=== PATIENT | male | born 2000 | race Caucasian/White ===

== ENCOUNTER 2022-09-28 01:51 | Emergency (ER) | payer MEDICARE, MEDICAID, SELFPAY ==
[2022-09-28 02:09] VITALS: BP 136/86; PULSE 105; O2SAT 99; BMI 30.1
[2022-09-28 03:01] VITALS: BP 113/58; PULSE 92; RESP 16; TEMP 37.4; O2SAT 97
--- NOTE | 2022-09-28 03:04 | PC.NURSE ---
pt reassessed reported burning with urination x 5 days. Was seen at [facility] for similar symptoms
--- NOTE | 2022-09-28 03:28 | ED_ITS ---
HPI - Psych General Chief Complaint: Psychiatric Symptoms Stated Complaint: crisis Time Seen by Provider: 09/28/22 03:24 Source: patient Mode of arrival: wheelchair Limitations: no limitations History of Present Illness HPI Narrative: Patient comes to the emergency room complaining of severe PTSD flashbacks. Patient states that there are no suicidal or homicidal thoughts. Patient extremely anxious because of the lytes, patient states that because of autism, patient cannot stand bright lights. Patient was seen at [facility] earlier today, however he was discharged because patient was being disruptive because the lights were too bright. Patient complaining of dysuria, no hematuria. Patient has history of chronic incontinence, requesting to be straight cath for urine sample Related Data Allergies Allergy/AdvReac Type Severity Reaction Status Date / Time latex [LATEX] Allergy Unknown UNKNOWN Unverified 05/13/20 16:43 shellfish derived Allergy Unknown UNKNOWN Unverified 05/13/20 16:43 [SHELLFISH DERIVED] CELIAC Allergy Unknown UNKNOWN Uncoded 05/13/20 16:43 Review of Systems Review of Systems: Constitutional : No Weight loss, No Fever, No Chills, No Night Sweats, No Fatigue, No Malaise ENT/Mouth : No Hearing loss, No Ear Pain, No Nasal Congestion, No Sinus Pain, No Hoarseness, No sore throat, No Rhinorrhea, No Swallowing Difficulty Eyes: No Eye Pain, No Swelling, No Redness, No Foreign Body, No Discharge, No Vision Changes Cardiovascular : No Chest Pain, No SOB, No Dyspnea on Exertion, No Orthopnea, No Edema, No Palpitations Respiratory : No Cough, No Sputum, No Wheezing, No Smoke Exposure, No Dyspnea Gastrointestinal : No Nausea, No Vomiting, No Diarrhea, No Constipation, No abdominal Pain, No Hematochezia, No Melena Genitourinary : Complaining of dysuria No Urinary Frequency, No Hematuria, No Urinary Incontinence, No Urgency, No Flank Pain, No Urinary Flow Changes, No Hesitancy Musculoskeletal : No joint pain, No Myalgias, No Joint Swelling Skin : No Skin Lesions, No rash Neuro : No Weakness, No Numbness, No Paresthesias, No Loss of Consciousness, No Dizziness, No Headache Psych : Complaining of anxiety, PTSD, no SI or HI Heme/Lymph: No Bruising, No Bleeding,No Lymphadenopathy Endocrine : No Polyuria, No Polydipsia, No Temperature Intolerance [facility] Past Medical History Medical History (Updated 09/28/22 @ 03:31 by Selina Yarbrough MD) Autism Chronic post-traumatic stress disorder (PTSD) Physical Exam Vital Signs: Vital Signs: Last Vital Signs Temp 99.4 F 09/28/22 03:01 Pulse 92 09/28/22 03:01 Resp 16 09/28/22 03:01 BP 113/58 L 09/28/22 03:01 Pulse Ox 97 09/28/22 03:01 O2 Del Method 09/28/22 03:01 BMI result Body Mass Index 30.1 Const: Other: Appearance: Alert. Oriented X3. Very anxious Eyes: Pupils equal, round and reactive to light. ENT: Pharynx normal. Neck: Normal inspection. Neck supple. No lymph nodes noted. No crepitus CVS: Normal heart rate and rhythm. Pulses normal. Normal S1 and S2 Respiratory: No respiratory distress. Breath sounds normal. No Wheezing. No rales Abdomen: Soft and nontender. No rigidity. No distention. Skin: Skin warm and dry. Normal skin color. Normal skin turgor. Extremities: No lower extremity edema. No Lacerations. No Rash Neuro: Cranial nerves 2-12 grossly intact Psych: Once patient was put in a dark room, patient became calm, cooperative. Before when patient was out in the hallway with bright lights, patient was extremely anxious Course Course Course Narrative: -patient requested to be straight cathed -urinalysis pending -care team consult pending -physician observation started at 03:30 -Sunday given to Dr. Camarena Discharge Plan Discharge Clinical Impression: Dysuria, Post traumatic stress disorder Patient Disposition: Still a Patient
[2022-09-28 03:49] LABS: Appearance Urine Turbid; Color Urine Yellow; Glucose Urine UA Negative (Negative); Leukocyte Esterase Urine Trace (Negative); Nitrite Urine Negative (Negative); PH 6.5 (5.0-9.0); UMIC TRIGGER UACC YES; Urine Blood Negative (Negative); Urine Ketones Negative (Negative); Urine Protein Negative (Neg-Trace)
--- NOTE | 2022-09-28 03:59 | PC.NURSE ---
pt straight cath for urine, tolerated well
[2022-09-28 04:17] LABS: Bacteria Urine None Seen (None Seen); Hyaline Casts Urine 0-2 /LPF (0-2); RBC Urine 0-2 /HPF (0-2); Squamous Epithelial Cell Urine 0-2 /HPF (0-2); WBC Urine 0-5 /HPF (0-5)
[2022-09-28] MEDS: Acetaminophen 325 MG TABLET 975 MG PO (04:20)
[2022-09-28] MEDS: clonazePAM 1 MG TABLET 2 MG PO (04:21)
[2022-09-28] MEDS: clonazePAM 1 MG TABLET PO (06:20)
--- NOTE | 2022-09-28 06:23 | PC.NURSE ---
pt reassessed, reported feeling anxious unable to focus. Dr. gomez
--- NOTE | 2022-09-28 06:38 | PC.NURSE ---
pt assessed, pt threw herself over the railing and ended on the floor, denies any complaints. Dr. gomez
[2022-09-28 07:02] LABS: Amphetamine Screen Urine Not Detected (Not Detect); Barbiturates, Urine Not Detected (Not Detect); Benzodiazepines Screen Urine Not Detected (Not Detect); Cannabinoid Screen Urine POSITIVE (Not Detect); Cocaine Screen Urine Not Detected (Not Detect); Fentanyl, urine Not Detected (Not Detect); Opiate Screen Urine Not Detected (Not Detect); Phencyclidine Screen Urine Not Detected (Not Detect)
[2022-09-28 07:20] VITALS: BP 126/80; PULSE 106; RESP 16; TEMP 36.7; O2SAT 97
--- NOTE | 2022-09-28 07:53 | PHA.MEDREC ---
Pharmacy Consult ? Medication Reconciliation Pharmacy has completed the medication reconciliation. Reviewed med rec done by nursing
--- NOTE | 2022-09-28 08:38 | PC.NURSE ---
CARE team at bedside evaluating patient.
--- NOTE | 2022-09-28 12:46 | PC.NURSE ---
assumed care of pt at 1100, pt transitioned into pod due to overstimulating in the main ED. pt approved by charge nurse to have wheelchair in behavioural pod due to limited mobility. pt changed over and belongings stored with pt getting access to activity books/colouring books/fidget toys from personal belongings. pt requiring freq redirection and reeducation about limitations with belongings in the pod and sharing single portable phone. pt requesting that staff do not give any information regarding stay to mother - registration/charge nurse/ED sec notified. pt is able to convey needs independently and has been encouraged to do so when needed. partner has been calling ED with instructions on behalf of pt - informed partner that pt has been able to communicate needs. pt informed staff that they do not have an allergy to gluten, chart updated to reflect this information. psych provider and CARE team has consulted with pt, ED provider performed med rec. pt denies SI/HI, but expresses increased confusion and is unsure as to why he is being held in the ED - psych team reoriented pt.
--- NOTE | 2022-09-28 13:26 | PC.NURSE ---
pt requesting to shower, assisted to shower chair and aiding w undressing by tech, pt showered independently.
[2022-09-28] MEDS: hydrOXYzine HCL 25 MG TABLET PO ×2 (14:51→21:39)
[2022-09-28] MEDS: Cyclobenzaprine HCl 5 MG TABLET PO ×2 (14:51→21:39)
[2022-09-28] MEDS: Dextroamphetamine/Amphetamine XR 10 MG CAP.ER.24H PO (14:54)
[2022-09-28] MEDS: Amphetamine Mixed Salts 10 MG TABLET 5 MG PO (14:55)
--- NOTE | 2022-09-28 14:58 | PC.NURSE ---
pt medicated per provider order.
--- NOTE | 2022-09-28 15:00 | PC.NURSE ---
pharmacy contacted for outstanding medication.
[2022-09-28] MEDS: Celecoxib 100 MG CAPSULE PO ×2 (15:13→21:39)
--- NOTE | 2022-09-28 15:17 | PC.NURSE ---
medicated per provider order with remaining medication, pt moved into room with television at pt request.
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
--- NOTE | 2022-09-28 16:10 | MHC.CARE ---
[facility] bed[facility] exhausted.
--- NOTE | 2022-09-28 18:38 | PC.NURSE ---
pt requesting to speak to care team, care team notified.
--- NOTE | 2022-09-28 19:10 | PC.NURSE ---
Addendum entered by Srinivas Jacques RN 09/28/22 22:18: Charge nurse made aware of 1:1 order and is agreement with plan Original Note: Per report and previous nurse note patient is high risk fall due to being wheel chair bound and limited mobility. Per report the case was discussed at the time of transfer however charge nurse decided to transfer despite those physicals issues and limitation with primary goal of maintaining ED milieu. Patient is significantly at high risk for fall. This life insurance underwriter discussed patient safety with the provider, Dr. Oropeza ordered one to one safety observation, patient is currently in room calm and quiet at this time, with wheelchair at bed side, will continue to monitor.
[2022-09-28 21:06] VITALS: BP 112/68; PULSE 98; RESP 16; TEMP 36.7; O2SAT 97
[2022-09-28] MEDS: Prazosin HCL 1 MG CAPSULE 2 MG PO (21:18)
[2022-09-28] MEDS: clonazePAM 0.5 MG TABLET PO (21:39)
--- NOTE | 2022-09-29 05:21 | PC.NURSE ---
Patient slept through the night, no distress observed/reported at this time, behavior unpredictable with extremely labile mood, difficulty controlling his emotions, medication compliant, patient reported he is has chronic bladder incontinence and is wheel chair bound, patient is being observed on 1:1 for for fall and safety, care team will soon make care plan for him, VSS, will continue to monitor.
[2022-09-29] MEDS: Dextroamphetamine/Amphetamine XR 10 MG CAP.ER.24H PO (07:41)
[2022-09-29] MEDS: Celecoxib 100 MG CAPSULE PO (07:53)
[2022-09-29] MEDS: Cyclobenzaprine HCl 5 MG TABLET PO (07:57)
--- NOTE | 2022-09-29 10:06 | MHC.CARE ---
Patient has been legally to his for five years, and is requesting Gokul, patient's spouse be referred to as his , as legally indicated.
--- NOTE | 2022-09-29 10:35 | MHC.CARE ---
Assessment faxed to [facility] for [facility]pt LOC today 09/29 [id number]
--- NOTE | 2022-09-29 10:36 | MHC.CARE ---
[facility] unable to accommodate patient today, though they have admitted him before and have many positive things to say about patient. Their unit is acutely aggressive, however if patient is not placed by Sunday, then they will reach out to see if patient still needs a bed as they would like to accept him.
--- NOTE | 2022-09-29 10:39 | PC.NURSE ---
Pt. constantly requesting phone. sliding around on floor. enc to get off floor. bkfst eaten. Limits set re: phone use. Pt having call nurse's station regarding care. Explained to that pt is capable of making his needs know. Care team in speaking with pt earlier. Requesting to shower at this time
--- NOTE | 2022-09-29 12:27 | MHC.CARE ---
sudhakar owen reviewed packet, unable to accommodate.
--- NOTE | 2022-09-29 12:31 | MHC.CARE ---
lvm 09/29 [id number] with pt's , Gokul, requesting call back to update re: bed search
[2022-09-29] MEDS: clonazePAM 0.5 MG TABLET PO (13:19)
[2022-09-29] MEDS: Amphetamine Mixed Salts 10 MG TABLET 5 MG PO (13:24)
--- NOTE | 2022-09-29 16:34 | PC.NURSE ---
Pt was informed by care team that he would be d/c. Pt became agitated and was witnessed jumping up and down. Pt deescalates himself and implores care team to talk with him more about disposition.
--- NOTE | 2022-09-29 17:04 | MHC.CARE ---
CARE commissions coordinator discusses case with Ibis Layton, [facility], Roseanna Amador, psych provider Carissa Simpson NP, and Dr. Manriquez ED provider. There is a consensus that patient does not meet criteria for IPLOC as pt is at his baseline of functioning which includes chronic emotional dysregulation with limited availability to implement distress tolerance skills. Pt's reports to t/w that pt is always like this, when referring to pt's current state of emotional distress. When t/w asks pt's why pt needs IPLOC, identifies that he is having difficulty tolerating pt's emotional dysregulation at home. Pt reports being hospitalized 32 times in the past and find that med changes and structured groups can be helpful. Carissa Simpson reports that she met with pt and offered med changes, however, pt declined med changes. CARE Team offers referral to PHP to start first thing next week, and pt declines. Pt declines referral for psychiatry at [facility] and referrals for respite LOC. CARE Team offers to make a safety plan with pt and and pt flips a mattress at t/w. CARE Team speaks with separately and recommends safety measures including locking up OTC and prescribed meds from pt and removing sharps. Before t/w can review community resources for crisis/[facility], reports they will be seeing another crisis team for a second opinion. Pt does not require a locked setting for treatment at this time and declined offers for lower LOC. Pt discharged by Dr. Manriquez. Case reviewed with Carissa Simpson NP.
== END 2022-09-29 17:13 | disposition home or self-care (01) ==
PROVIDERS: Emergency Medicine; Emergency Provider Emergency Medicine Emergency Medical Services; PCP Internal Medicine Nephrology
DX: F60.3 Borderline personality disorder (principal); R30.0 Dysuria; F43.12 Post-traumatic stress disorder, chronic; F84.0 Autistic disorder; F41.9 Anxiety disorder, unspecified; Z79.899 Other long term (current) drug therapy
CPT/HCPCS: 51701; 80307; 81001; 99285

== ENCOUNTER 2024-12-29 21:16 | Emergency (ER) | payer MEDICARE, MEDICAID, SELFPAY ==
[2024-12-29 21:22] VITALS: BP 134/81; PULSE 77; O2SAT 98
--- NOTE | 2024-12-29 21:23 | ED_ITS ---
HPI - General Adult General Chief complaint: General Medical Stated complaint: NEEDS ASSISTANCE? PER EMS Time Seen by Provider: 12/29/24 21:22 Source: patient Mode of arrival: EMS Limitations: no limitations History of Present Illness ED Provider: Dr. 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 Patient completed a 7 day course of antibiotics and the only new discharge medication was Flomax. Patient states that he was discharged from [facility] and was taken home by wheelchair ambulance. He states that the driver/sales workers left him at his home and his mother refused to let him in. An ambulance was called and the patient was then brought to [facility] for evaluation. Patient denies being suicidal or homicidal. He states that he does not feel right but has no specific complaints Related Data Home Medications ?Medication ?Instructions ?Recorded ?Confirmed hydroxyzine pamoate 25 mg capsule 1 cap PO Q6H PRN anxiety 09/28/22 12/30/24 aspirin 81 mg tablet,delayed 81 mg PO DAILY 12/30/24 12/30/24 release baclofen 5 mg tablet 5 mg PO TID Muscle Spasm 12/30/24 12/30/24 cefpodoxime 100 mg tablet 100 mg PO Q12H 12/30/24 12/30/24 cetirizine 10 mg tablet 10 mg PO DAILY 12/30/24 12/30/24 clonazepam 1 mg tablet 1 mg PO BEDTIME 12/30/24 12/30/24 dextroamphetamine-amphetamine 10 1 tab PO BID@0800,1200 12/30/24 12/30/24 mg tablet famotidine 20 mg tablet 20 mg PO DAILY 12/30/24 12/30/24 melatonin 3 mg tablet 3 mg PO BEDTIME PRN insomnia 12/30/24 12/30/24 metoprolol tartrate 25 mg tablet 25 mg PO BID 12/30/24 12/30/24 morphine 15 mg tablet,extended 45 mg PO BEDTIME 12/30/24 12/30/24 release morphine 15 mg tablet,extended 15 mg PO DAILY 12/30/24 12/30/24 release (MS Contin) naloxone 4 mg/actuation nasal spray 1 spray intranasal NEEDED 12/30/24 12/30/24 ondansetron 4 mg disintegrating 4 mg PO Q8H PRN nausea/vomiting 12/30/24 12/30/24 tablet polyethylene glycol 3350 17 gram 17 g PO DAILY PRN Constipation 12/30/24 12/30/24 oral powder packet (Miralax) sennosides 8.6 mg tablet (senna) 17.2 mg PO DAILY 12/30/24 12/30/24 tamsulosin 0.4 mg capsule 0.4 mg PO DAILY 12/30/24 12/30/24 testosterone cypionate 200 mg/mL 80 mg IM TU@0900 12/30/24 12/30/24 intramuscular oil Allergies Allergy/AdvReac Type Severity Reaction Status Date / Time aripiprazole [From Abilify] Allergy Hallucinati Verified 12/29/24 21:28 ons dog dander [dogs] Allergy Unknown Verified 12/29/24 21:28 mite-Dermatophagoides Allergy Unknown Verified 12/29/24 21:28 farinae, carmen [dust mite - [place]] chlorpromazine AdvReac Hallucinati Verified 12/29/24 21:28 [From Thorazine] ons Review of Systems 2 Review of Systems: Yes all other systems are reviewed and are negative PMFSH Past Medical History Medical History (Updated 01/01/25 @ 14:14 by Flavio Wiseman MD) Tracheal stenosis Tracheostomy dependence Autism Chronic post-traumatic stress disorder (PTSD) Social History Social History Alcohol intake: never Patient Tobacco Use Status: Never used Tobacco Smoked in Last 30 Days: No Second Hand Smoke Exposure: No Use of substances other than those prescribed or required for medical reasons: No Have you been hit, kicked, punched, or otherwise hurt by someone within the past year? If so, by whom?: No Are you DNR?: No Advance Directives: No Advance Directives Information Provided: No Advance Directives on File: No Poor oral hygiene: No Physical Exam ED Vital Signs: Vital Signs - 24 hr 01/02/25 11:26 01/02/25 12:19 01/02/25 12:29 Temperature 98.3 F 97.2 F 97 F Pulse Rate 67 64 69 Respiratory Rate 16 17 16 Blood Pressure 109/59 L 87/46 L 94/51 L Pulse Oximetry 96 94 96 Oxygen Delivery Method Room Air Room Air Room Air 01/02/25 21:42 01/03/25 09:03 Temperature 98.7 F 98.1 F Pulse Rate 88 69 Respiratory Rate 18 16 Blood Pressure 107/62 132/52 L Pulse Oximetry 96 99 Oxygen Delivery Method Room Air Room Air BMI result Body Mass Index 35.1 Vital signs were normal Exam: General: Awake, appears anxious, has a chronic tracheostomy and can speak. Head: Normocephalic, atraumatic EENT: PERRL, Lids normal, sclera normal, conjunctiva normal, nose normal , ears normal, throat without erythema or exudates Neck: Supple, no adenopathy, tracheostomy Lung: breath sounds symmetric, no wheezing, rales or rhonchi Chest: symmetric movement, nontender Heart: regular rate and rhythm, normal S1, S2 no murmurs or rubs Abdomen: soft, non-tender, nondistended, normal bowel sounds Back: no vertebral tenderness, no CVAT Extremities: no deformities, moves all extremities symmetrically Neuro: Awake, alert, oriented, cranial nerves intact, moves all extremities symmetrically Psych: Pleasant, anxious, cooperative Course Course Course Narrative: Time: 08:27 Date: 12/31/24 Provider: ELSY Ontiveros Patient in physician observation for case management needs. No acute events reported overnight.? No current issues or complaints. VS stable. Patient is pending placement at [facility]/ eval. Will continue to monitor. L Time: 09:30 Date: 01/01/25 Provider: Dominga Park PA-C Patient continues to be in observation. Has tentative placement in a SNF in [place], [place] however, they have requested the patient have his trach changed before he is sent. I have reached out to our pulmonology team and await a response. Patient's urine culture grew E. Faecalis >100,000 cfu/ml susceptible to Macrobid. Patient's prescription switched to Macrobid. Time: 11:15 Date: 01/01/25 Provider: ELSY Langley-Jocelyne Patient seen by Dr. Wiseman for trach change however, the patient did not tolerate it well. Patient scheduled for replacement on 01/02/2025 at 1230pm. Patient to be NPO after midnight. Reevaluation(s) Reevaluation #1: 01/02/2025 Provider; ELSY Ng Patient in position observation pending OR today for trach replacement. He has been NPO since midnight plan surgery at 12:30 pm today, we will continue to monitor. Time: 09:00 Reevaluation #2: Received a call from [employer], the patient is complaining that he is unable to move his right arm, and that it is tingly. Patient states he has had issues like this in the past. I will go and assess the patient, we do not have a great deal of documentation on him from prior visits. With distraction, the patient moves the right upper extremity. He has tone, it is not flaccid. Nursing thinks he is becoming anxious over the prospect of being placed in another skilled nursing, this may be an attempt to try and stay in the emergency room longer. Time: 02:54 Reevaluation #3: Time: 08:30 Date: 01/03/25 Provider: ELSY Salinas Patient in physician observation for case management needs. No current issues or complaints. VS stable. Awaiting case management disposition and placement Time: 08:52 Date: 01/03/25 Provider: ELSY Salinas Physician observation ended at 8:52AM. Patient will be discharged to [facility] in [place] at 1:30PM this afternoon. Medications Administered Generic Name Dose Route Start Last Admin Trade Name Freq PRN Reason Stop Dose Admin Acetaminophen 650 mg 01/02/25 07:40 01/02/25 07:56 Acetaminophen 325 Mg Tablet PO 650 mg Q6H PRN Administration Pain, Mild (Pain Scale 1-3) Amphetamine/Dextroamphetamine 10 mg 12/31/24 08:00 01/03/25 09:05 Amphetamine Mixed Salts 10 Mg Tablet PO 10 mg BID@0800,1200 COLTEN Administration Aspirin 81 mg 12/30/24 12:45 01/03/25 09:05 Aspirin Enteric Coated 81 Mg Tablet.Dr PO 81 mg DAILY COLTEN Administration Baclofen 5 mg 12/30/24 15:00 01/03/25 09:05 Baclofen 10 Mg Tablet PO 5 mg TID COLTEN Administration Clonazepam 1 mg 12/30/24 21:00 01/02/25 22:00 Clonazepam 1 Mg Tablet PO 1 mg BEDTIME COLTEN Administration Famotidine 20 mg 12/30/24 12:45 01/03/25 09:08 Famotidine 20 Mg Tablet PO 20 mg DAILY COLTEN Administration Hydroxyzine HCl 25 mg 12/30/24 12:35 01/03/25 00:29 Hydroxyzine Hcl 25 Mg Tablet PO 25 mg Q6H PRN Administration anxiety Loratadine 10 mg 12/30/24 12:45 01/03/25 09:11 Loratadine 10 Mg Tablet PO 10 mg DAILY COLTEN Administration Metoprolol Tartrate 25 mg 12/30/24 12:45 01/03/25 09:09 Metoprolol Tartrate 25 Mg Tablet PO 25 mg BID COLTEN Administration Protocol Morphine Sulfate 45 mg 12/30/24 21:00 01/02/25 22:00 Morphine Sulfate Er 15 Mg Tablet.Er PO 45 mg BEDTIME COLTEN Administration Morphine Sulfate 15 mg 12/30/24 12:45 01/03/25 09:14 Morphine Sulfate Er 15 Mg Tablet.Er PO 15 mg DAILY COLTEN Administration Nitrofurantoin Macrocrystals 100 mg 01/01/25 09:30 01/03/25 09:09 Nitrofurantoin Monohyd/M-Cryst 100 Mg Capsule PO 01/08/25 09:29 100 mg BID COLTEN Administration Oxycodone HCl 10 mg 01/01/25 17:17 01/03/25 09:34 Oxycodone Hcl Immed Release 5 Mg Tablet PO 10 mg Q6H PRN Administration Pain, Moderate(Pain Scale 4-6) Senna 17.2 mg 12/30/24 12:45 01/03/25 09:06 Sennosides 8.6 Mg Tablet PO 17.2 mg DAILY COLTEN Administration Tamsulosin HCl 0.4 mg 12/30/24 12:45 01/03/25 09:09 Tamsulosin Hcl 0.4 Mg Capsule PO 0.4 mg DAILY COLTEN Administration Discontinued Medications Generic Name Dose Route Start Last Admin Trade Name Codi PRN Reason Stop Dose Admin Acetaminophen 975 mg 12/31/24 14:59 12/31/24 15:03 Acetaminophen 325 Mg Tablet PO 12/31/24 15:00 975 mg ONCE ONE Administration Cefuroxime Axetil 500 mg 12/30/24 08:00 12/30/24 08:52 Cefuroxime Axetil 500 Mg Tablet PO 01/04/25 07:59 Not Given Q12H [facility] Cefuroxime Axetil 250 mg 12/30/24 08:04 01/01/25 09:44 Cefuroxime Axetil 250 Mg Tablet PO 01/04/25 07:59 Not Given Q12H [facility] Clonazepam 1 mg 12/30/24 02:03 12/30/24 02:19 Clonazepam 1 Mg Tablet PO 12/30/24 02:04 1 mg ONCE ONE Administration Clonazepam 1 mg 12/31/24 15:10 12/31/24 15:16 Clonazepam 1 Mg Tablet PO 12/31/24 15:11 1 mg ONCE ONE Administration Hydroxyzine HCl 25 mg 12/30/24 02:03 12/30/24 02:19 Hydroxyzine Hcl 25 Mg Tablet PO 12/30/24 02:04 25 mg ONCE ONE Administration Morphine Sulfate 15 mg 12/30/24 02:09 12/30/24 02:18 Morphine Sulfate Er 15 Mg Tablet.Er PO 12/30/24 02:10 15 mg ONCE ONE Administration Oxycodone HCl 5 mg 12/31/24 17:06 12/31/24 17:14 Oxycodone Hcl Immed Release 5 Mg Tablet PO 12/31/24 17:07 5 mg ONCE ONE Administration Medical Decision Making Medical Decision Making MDM Narrative: 24-year-old transgender male with hormone transitions since 2017 status post mastectomy 2018, WPW status post ablation, migraines, asthma with medication overdose 12/2022 with subglottic stenosis and tracheostomy, bipolar disorder, MDD, AST, PTSD, ADHD borderline personality, 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 Patient completed a 7 day course of antibiotics and the only new discharge medication was Flomax. Patient states that he was discharged from [facility] and was taken home by wheelchair ambulance. He states that the driver/sales workers left him at his home and his mother refused to let him in. An ambulance was called and the patient was then brought to [facility] for evaluation. Patient denies being suicidal or homicidal. He states that he does not feel right but has no specific complaints. Vital signs were normal. Physical examination was unremarkable. Differential diagnosis: ?Includes but is not limited to anxiety, anemia, electrolyte abnormalities, urinary tract infection, possible homelessness Course: 22:47 Start physician observation The patient denied being suicidal or homicidal therefore he does not need a psychiatric evaluation at this time. He states that he is not feeling well, he appears anxious, physical exam was unremarkable. Once the patient's medications were reconciled, I will order his home medications. I did order CBC, CMP, ethanol level, drug screen urine, urinalysis. Patient states that last time he had CPR , he experienced a lot of pain he is not certain if he wants it again but he does not want to make a decision at this time. Therefore, the patient will be a full code. Patient will be placed in physician observation until he can be evaluated by case management in the morning to determine his home circumstance/living situation. 08:00 Physician observation continued Patient was given his outpatient medications of MS Contin 15 mg, clonazepam 1 mg and hydroxyzine 25 mg orally. My interpretation patient's laboratory evaluation is as follows: CBC was normal. CMP was normal. Urinalysis obtained from indwelling Dacosta catheter revealed 3+ leukocyte esterase, greater than 50 WBCs, 0 2 squamous cells, 3+ bacteria. Patient was treated with 7 days of antibiotics and [facility] with the only new medication at the time of discharge was Flomax. Given his positive UA/microscopic today, I did order cefuroxime 250 mg orally and cefuroxime 250 mg q.12 hours while the patient is here in the emergency department. The patient's medications will need to be reconciled. At the end of my shift, patient is waiting for case management evaluation therefore patient's care was turned over to my colleague, Dr. Foy Admission/Observation Consideration of admission/observation: Escalation of care including admission/observation considered Lab Data 12/30/24 00:01 12/30/24 00:01 Labs: Lab Results 12/29/24 12/30/24 12/30/24 Range/Units 23:50 00:01 11:40 WBC 7.4 (4.8-10.8) X10*3/uL RBC 4.97 (4.60-5.80) X10*6/uL Hgb 15.1 (14.0-18.0) g/dl Hct 44.1 (42.0-52.0) % MCV 88.7 (80.0-98.0) fL MCH 30.4 (27.0-33.0) pg MCHC 34.2 (31.0-36.0) g/dl RDW 13.1 (11.0-16.0) % Plt Count 215 (160-400) X10*3/uL MPV 9.9 (9.4-12.4) fL Immature Gran % (Auto) 0.1 (0.0-0.4) % Neut % (Auto) 52.1 (45-73) % Lymph % (Auto) 31.8 (20-40) % [place] % (Auto) 11.9 H (2-11) % Eos % (Auto) 3.4 (0-4) % Baso % (Auto) 0.7 (0-2) % Lymph # (Auto) 2.4 (1.2-4.9) X10*3/uL [place] # (Auto) 0.9 (0.1-1.2) X10*3/uL Eos # (Auto) 0.3 (0.0-0.4) X10*3/uL Baso # (Auto) 0.1 (0.0-0.2) X10*3/uL Abs Immat Gran (auto) 0.01 (0.00-0.03) X10*3/uL Absolute Neuts (auto) 3.9 (2.0-8.3) x10*3/uL Absolute Nucleated RBC 0.000 (0.0-0.012) X10*3/uL Nucleated RBC % (auto) 0.0 (0.0-0.2) /100WBC Sodium 142 (135-145) mmol/L Potassium 3.9 (3.3-5.1) mmol/L Chloride 109 H (96-108) mmol/L Carbon Dioxide 23 (22-29) mmol/L Anion Gap 14 (12-20) BUN 18 H (9-16) mg/dL Creatinine 0.81 (0.5-1.4) mg/dL Estim Creat Clear Calc 138.3 Estimated GFR > 60 Random Glucose 84 (60-115) mg/dL Calcium 9.0 (8.4-10.2) mg/dL Total Bilirubin 0.7 (0.0-1.0) mg/dL AST 33 (5-37) U/L ALT 46 H (0-40) U/L Alkaline Phosphatase 52 (39-117) U/L Total Protein 6.8 (6.5-8.0) g/dL Albumin 3.9 (3.5-5.0) g/dL Urine Color Yellow Urine Appearance Clear Urine pH 6.5 (5.0-9.0) Ur Specific [place] 1.015 (1.005-1.025) Urine Protein 30 (1+) H (Neg-Trace) mg/dL Urine Glucose (UA) Negative (Negative) mg/dL Urine Ketones 15 (Negative) mg/dL Urine Blood Negative (Negative) Urine Nitrite Negative (Negative) Ur Leukocyte Esterase Large (3+) H (Negative) Urine RBC 0-2 (0-2) /HPF Urine WBC >50 H (0-5) /HPF Ur Squamous Epith Cells 0-2 (0-2) /HPF Urine Bacteria 3+ (None Seen) Hyaline Casts 0-2 (0-2) /LPF Urine Opiates Screen POSITIVE H (Not Detect) Ur Buprenorphine Scrn Not Detected (Not Detect) ng/mL Ur Oxycodone Screen Positive H (Not Detect) ng/mL Urine Methadone Screen Not Detected (Not Detect) ng/mL Urine Fentanyl Screen Not Detected (Not Detect) Ur Barbiturates Screen Not Detected (Not Detect) Ur Phencyclidine Scrn Not Detected (Not Detect) Ur Amphetamines Screen POSITIVE H (Not Detect) U Benzodiazepines Scrn Not Detected (Not Detect) Urine Cocaine Screen Not Detected (Not Detect) U Marijuana (THC) Screen POSITIVE H (Not Detect) Ethyl Alcohol < 10 mg/dL Influenza Type A (PCR) NEGATIVE (Negative) Influenza Type B (PCR) NEGATIVE (Negative) RSV RNA Qual (PCR) NEGATIVE (Negative) SARS-CoV-2 RNA (RT-PCR) NEGATIVE (Negative) External Record Review External record reviewed: Outside ED record ( record from [facility] recent admission) Chronic Conditions Patient?s care impacted by: Other ( asthma, bipolar disorder) Social Determinants Patient?s care significantly limited by Social Determinants of Health including: Inadequate housing and Other Social Determinant of Health Discharge Plan Discharge Clinical Impression: Anxiety, Urinary tract infection, Inadequate housing Patient Disposition: Xfer LTC Transfer Details: [facility]
[2024-12-29 21:25] VITALS: BP 134/84; PULSE 81; RESP 20; TEMP 37.4; O2SAT 97; BMI 35.1
--- OUTSIDE RECORDS SUMMARY | 2024-12-29 21:58 | XMS_ITS | Encounter Summary ---
Author Organization [facility] Address [address] [place] [address] Care Team Providers Care Cisco Engineer Name Role Phone RoxisarahabimbolaEda Primary Care Provider [phone] Encounter Details Date Type Department Care Team (Late st Contact Info) Description 09/26/2022 myChart Message [facility] [address] [place] [address] [phone] Angelita Seth MD [address] [place] [address] [phone] question related to products used on my scalp Social History Tobacco Use Types Packs/Day Years Used Date Smoking Tobacco: Every Day Cigarettes 1 4.3 Started: 2020 Smokeless Tobacco: Never Alcohol Use Standard Drinks/Week Comments Never 0 (1 standard drink = 0.6 oz pur e alcohol) Comments Unknown Sex and Gender Information Value Date Recorded Sex Assigned at Female 06/12/2022 1:18 PM EDT Legal Sex Male 10:42 AM EDT Gender Identity Transgender Male 12/28/2023 4:37 PM EDT Sexual Orientation Lesbian or Park 06/12/2022 1: 18 PM EDT documented as of this encounter Plan of Treatment Not on file documented as of this encounter Visit Diagnoses Not on filedocumented in this encounter Care Teams Cisco Engineer Relationship Specialty Start Date End Date KwanEda [address] [place] [id number] PCP - General 05/24/22 documented as of this encounter
--- OUTSIDE RECORDS SUMMARY | 2024-12-29 21:58 | XMS_ITS | Encounter Summary ---
Author Organization [facility] Address [address] [place] [address] Care Team Providers Care Chair Mechanic Name Role Phone Eda Bowens Primary Care Provider [phone] Encounter Details Date Type Department Care Team (Late st Contact Info) Description 09/05/2022 Telephone [facility] [address] [place], [place] [phone] Octavio Esparza MD [address] [place] [phone] Social History Tobacco Use Types Packs/Day Years [...] PM EDT documented as of this encounter Miscellaneous Notes * Telephone Encounter - Octavio Esparza MD - 09/06/2022 10:50 AM EST COVID-19 order signed. Thank you. documented in this encounter Plan of Treatment Not on file documented as of this encounter Results * Due to [place] state law, this organization might not be sharing negative HIV tests. * COVID-19 PCR, Pre-Procedure (Asymptomatic), LABOR AND DELIVERY REGISTERED NURSE/OP/Saliva (09/15/2022 11:31 AM EST) SARS CoV 2 RNA, RT PCR Not Detected Not Detected SARAH HER QUANT STUDIO 09/15/2022 9:20 PM EST [facility] Comment:A Not Detected (Nega tive) test result is indicative of the absence of SARS-CoV-2 RNA at the level of LoD (Limit of Detection). A negative result does not rule out the possibility of COVID-19 and should not be used as the sole basis for treatment or patient management decisions. If COVID-19 is still suspected, based on exposure history together with other clinical findings, re-testing should be considered. Swab (Naso- and/or Oropharyngeal) Non-Blood Collection / Unknown 09/15/2022 11:31 AM EST 09/15/2022 12:04 PM EST Narrative [facility] - 09/15/2022 9:20 PM EST These tests were developed, validated, and their performance characteristics determined by the Molecular Virology Laboratory at [facility] under CLIA [id number]. They have not been cleared or approved by the U.S. Food and Drug Administration (FDA). FDA Policy for Diagnostic Tests for Coronavirus Disease-2019 during the Public Health Emergency issued November 10, 2019, is followed. Octavio Esparza MD LAB BODY FLUIDS AND STOOLS [facility]ILTON TRAMMELL Final Result [facility] [address] [place] [address], documented in this encounter Visit Diagnoses Diagnosis Convulsions, unspecified convulsion type (HCC)- Primary documented in this encounter Care Teams Chair Mechanic Relationship Specialty Start Date End Date Eda Bowens [address] [place] [id number] PCP - General 05/24/22 documented as of this encounter
--- OUTSIDE RECORDS SUMMARY | 2024-12-29 21:58 | XMS_ITS | Clinical Summary ---
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 dextroamphetamin e-amphetamine (ADDERALL) 5 mg tablet Take 10 mg by mouth 2 times a day. 06/21/2022 Active clonazePAM (KlonoPIN) 0.5 mg tablet Take 0.5 mg by mouth 2 times a day as needed for anxiety. 08/05/2022 Active testosterone cypionate (DEPO-TESTOSTERO NE) 200 mg/mL injection SMARTSI. 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 12/14/2023 Severe episode of recurrent major depressive disorder, without psychotic features 12/14/2023 Autism 09/25/2022 PTSD (post-traumatic stress disorder) 09/24/2022 Assessment & Plan (09/24/2022 8:08 AM EST): -continue home Prozosin 2mg at bedtime Generalized anxiety disorder 09/24/2022 Assessment & Plan (09/24/2022 8:09 AM EST): -continue home Duloxetine 40mg at bedtime, Atarax 50mg at bedtime -Clonazepam 0.5mg daily PRN ADHD (attention deficit hyperactivity disorder) 09/24/2022 Assessment & Plan (09/24/2022 8:09 AM EST): -continue home Adderall XR 10mg daily, Adderall 5mg daily Seizure-like activity 09/18/2022 Assessment & Plan (09/24/2022 9:43 AM EST): Patient presented for planned EMU admission for characterization of events. Patient has two main semiologies, with both blank starring episodes (appears zoned out, unresponsive for 2-3 minutes occurring multiple times daily) as well as convulsive type (with bruxism, whole body tremor/twitch, urinary incontinence, tongue bite, falls typically lasting 1-2 minutes occurring around once per week). Prior ambulatory EEG demosntrated several absence type events without EEG correlate however patient's second semiology (convulsive activity) was not captured. No prior imaging available. Throughout admission patient has had multiple further episodes of blank starring/unresponsiveness again without EEG correlate however has not had convulsive episodes. Unclear if convulsive episodes represent ictal phenomenon however absence/starring episodes appear consistent with PNES. Will plan to continue monitoring to attempt to capture convulsive episode; likely discharge on 09/25. -monitor on CEEG -photic stimulation, hyperventilation daily -discontinue sleep deprivation. -seizure precautions -given low suspicion for epileptic events; hold benzodiazepine unless event lasts >5 minutes Convulsions 06/27/2022 Family History Medical History Relation Name Comments Autism Brother Brothers all bass ve autism. Autism Father Neurofibromatosis Father Other Father Substance abuse , heroin overdose at age 36 yrs. Retinitis pigmentosa Maternal Grandfather Opioid abuse, of an overdose. Phill Parkinson White syndrome Maternal Grandmother in her 60's from Phill-Parkinson's Synrome. Other Mother Reflex Sympathe tic Dystrophy. Uterine cancer Mother Relation Name Status Comments Brother Alive Father Maternal Grandfather Maternal Grandmother Mother Alive Social History Tobacco Use Types Packs/Day Years Used Date Smoking Tobacco: Every Day Cigarettes 1 4.3 Started: 2020 Smokeless Tobacco: Never Tobacco Cessation:Ready to Q uit: Not Asked; Counseling Given: Not Answered Alcohol Use Standard Drinks/Week Comments Never 0 (1 standard drink = 0.6 oz pur e alcohol) Comments Unknown Sex and Gender Information Value Date Recorded Sex Assigned at Female 06/12/2022 1:18 PM EDT Legal Sex Male 10:42 AM EDT Gender Identity Transgender Male 12/28/2023 4:37 PM EDT Sexual Orientation Lesbian or Park 06/12/2022 1: 18 PM EDT Last Filed Vital Signs Vital Sign Reading Time Taken Comments Blood Pressure 150/96 09/25/2022 1:35 PM EST Pulse 119 09/25/2022 1:35 PM EST Temperature 36.7 ??C (98 ??F) 09/25/2022 12:15 PM EST Respiratory Rate 20 09/25/2022 1:35 PM EST Oxygen Saturation 94% 09/25/2022 1:35 PM EST Inhaled Oxygen Concentration - - Weight 83.9 kg (185 lb) 09/18/2022 9:00 PM EST Height 154.9 cm (5' 1 ) 09/18/2022 9:00 PM EST Body Mass Index 34.96 09/18/2022 9:00 PM EST Plan of Treatment Health Maintenance Due Date Last Done Comments HIV Screening 1999 Hepatitis C Screening 1999 Medicare AWV 02/23/2000 Varicella Vaccines (1 of 2 - 13+ 2-dose series) 02/23/2012 HPV Vaccines (1 - 3-dose series) 2014 Hepatitis B Vaccines (1 of 3 - 19+ 3-dose series) 2018 Pneumococcal Vaccine: Pediat stefany (0-5 Years) and At-Risk Patients (6-50 Years) (1 of 2 - PCV) 2018 DTaP,Tdap,and Td Vaccines (1 - Tdap) 2021 COVID-19 Vaccine (3 - season) 2024, 12/19/2020 Alcohol/Substance Use Screening 08/27/2024 Depression Screening and Follow-Up 08/27/2024 Social Drivers of Health Annual Screening 08/27/2024 Influenza Vaccine (Season Ended) 2025 06/29/20 17, 06/13/2017 RSV Vaccine (60+ years old a nd patients) (1 - 1-dose 75+ series) 2074 Abdominal Aortic Aneurysm (AAA) Screening Completed 08/26/2021, 01/11/[address] [place] [address] MEDICARE Advance Directives Documents on File Type Date Recorded 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
--- OUTSIDE RECORDS SUMMARY | 2024-12-29 21:58 | XMS_ITS | Data Portability ---
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 Little in May, new to [facility], who presents for a COVID test. Patient had a telehealth visit With his primary care yesterday who prescribed Tylenol, Motrin, and Tessalon Perles and recommended [facility] evaluation for COVID test. 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 The patient states that 2 days ago he began to feel feverish and then developed sore throat, headache, fatigue, muscle aches, loss of taste and smell, stomach aches, and diarrhea. He states the [id number] medications are helping somewhat. No chest pain, sob, palpitations, syncope, weakness. Exam: afebrile, RRR, normotensive, normal resps, O2 sat 99% on RA, non-toxic, well-appearing. GENERAL: well developed, well nourished, appears stated age, sitting comfortably in no acute distress. HEENT: normocephalic, atraumatic, sinuses mildly TTP, PERRL, EOMI, sclera anicteric, no conjunctival injection, external auditory canal clear, TMs pearly white with cone of light, nares patent, septum midline, turbinates erythematous, non-edematous, posterior pharynx erythematous without lesions, or exudate. NECK: trachea midline, no masses, cervical lymphadenopathy,. RESP: normal I:E, breathing non-labored, clear to auscultation bilaterally, no wheezes, rhonchi, or rales. CARDIO: RRR, normal S1, S2, no murmurs, rubs, or gallops, radial pulse 2+. MUSK: normal strength, ROM, muscle tone, no atrophy. EXTREMITIES: warm and well perfused, no swelling or rashes. NEURO: awake, alert, oriented x3, no focal neuro deficits, moving all extremities spontaneously. SKIN: intact, good turgor, no cyanosis, pallor, ecchymosis, rash, lesions, abrasions, or lacerations. PSYCH: pleasant, appropriate mood and affect. DDx considered, but not limited to: COVID - most likely given sxs, duration, and exposure other URI - possible acute bacterial rhinosinusitis - unlikely, no significant sinus tenderness, nasal discharge, turbinates non-edematous flu - less likely, rapid flu neg strep - less likely, no tonsillar exudate or cervical lymphadenopathy, +cough post procedural complications - considered since pt has not had f/u but less likely since procedure was in May, no chest pain, palpitations, syncope Work up/Results: rapid flu and strep neg, throat culture and COVID test pending. Plan/Discussion: [facility] came to evaluate your fever, sore throat, headache, fatigue, muscle aches, loss of taste and smell, stomach aches, and diarrhea. Your rapid flu and strep test was negative. You likely have COVID-19 with recent exposure and current symptoms. Your COVID test and throat culture should result in 3-5 days, we will call you with the results. Continue to quarantine for at least 14 days, you must be without fever or symptoms for at least 48 hours prior to breaking quarantine. Continue care per your primary care. Hydrate well. [facility] for new or worsening symptoms. If you develop severe shortness of breath or weakness call 911 or go to the ER. [facility]. We cannot always find the exact cause of your symptoms during your initial visit. Please follow up with your primary care provider or specialist to be rechecked or seek medical attention if your symptoms do not go away or get worse. If you develop any new or worsening symptoms and need after hours care, please go to nearest ER and/or call 911. If you have additional concerns or develop a change in your condition between 8am-10pm, please call [facility] at [phone] to help navigate your care. Proper Personal Protective Equipment (PPE), including gloves, eye protection, N95 mask, gown, and shoe covers were donned and doffed appropriately and all equipment cleaned using approved technique with germicidal disposable wipes prior to and after care of this patient according to [facility]'s infection prevention protocols. In order to obtain further information and compare any laboratory results/values, I have accessed patient records on the [employer]. This information was pertinent in my medical decision making today. Time On Scene with Patient: 00:30:27 link Not available 08/07/2020 18:21:01 08/11/2020 08/11/2020 Overview/History : 20yo M pmhx bipolar WPW is seen today for 8 days of body aches, cough, chest pain nausea and headaches. Patient was seen 08/07 and tested negative for COVID. Patient reports feeling worse. Constant cp, cough, nausea and headache. No neck stiffness. Patient's is having similar symptoms. Exam: VSS patient non toxic appearing but appears uncomfortable Heart and lung soundc clear no nuchal rigidity pharynx without redness, swelling or exudates DDx considered, but not limited to: covid influenza viral gastroenteritis inra abdominal pathology doubt as no fever and abdomen soft and non tender maningitis-doubt as patient afebrile without neck stiffness pneumonia-doubt as patient is afebrile and lungs are CTA pericarditis-doubt as no signs on EKG Work up/Results: rapid strep neg rapid influenza neg COVID test pennding EKG non ischemic without signs of myocarditis Assessment and plan Patient is hemodynamically stable non toxic appearing seen today for flu like symptoms. no signs of pna. NO signs of meningitis or intra abdominal pathology. Patient very stressed. Tested again for COVId. Again educated on symptomatic care and drinking plenty of fluids. Precautions again given that is he develops high fevers, abdominal pain, worsened cough or sob. He verbalized understanding and was agreeable with overall plan. PAtient's was also evaluated today for similar symptoms Proper Personal Protective Equipment (PPE), including gloves, eye protection, N95 mask, gown, were donned and doffed appropriately and all equipment cleaned using approved technique with germicidal disposable wipes prior to and after care of this patient according to [facility]'s infection prevention protocols. In order to obtain further information and compare any laboratory results/values, I have accessed old patient records. This information was pertinent in my medical decision making today. Time On Scene with Patient: 00:36:38 [email or web address] Not available 08/11/2020 20:10:36 08/15/2020 08/15/2020 Overview/History : 20-year-old male with past medical history significant for asthma, depression, and WPW status post recent cardiac ablation at [facility], known to [facility], who presents with complaints of worsening chest tightness and shortness of breath with exertion. The patient states that trying to get air in is difficult. He has been feeling very dazed and states that life does not feel real period also admits to intermittent fevers improved with Tylenol and ibuprofen. Also complains of muscle aches, chills, stomach pain, diarrhea, and sore throat. He has been using his nebulizer which helps his cough and fever somewhat. Admits to nausea without vomiting. States that food and drink go right through him. He has lost 10 pounds over the last 10 days. He states that he bought a cat in 1 day before the onset of the symptoms. He has several well healing scratches. No rash. He admits to both pleuritic and exertional chest tightness with associated shortness of breath and feeling like he is going to pass out. He has been lost to followup with cardiology due to the COVID pandemic. His is also symptomatic. They report positive exposure to his grandmother and he has had 2 negative COVID tests since. Exam: low grade fever, RRR, normotensive, normal resps, O2 sat 98% on RA, ill appearing. GENERAL: well developed, well nourished, appears stated age, ill appearing, sitting comfortably in no acute distress. HEENT: normocephalic, atraumatic, sinuses nontender, PERRLA, EOMI, sclera anicteric, no conjunctival injection, external auditory canal clear, TMs pearly white with cone of light, nares patent, septum midline, right turbinates non-edematous and erythematous , posterior pharynx erythematous without lesions, tacky mucus membranes NECK: trachea midline, no masses, or cervical lymphadenopathy. RESP: normal I:E, decreased breath sounds in the RUL, no wheezes, rhonchi, or rales. CARDIO: RRR, normal S1, S2, no murmurs, rubs, or gallops, JVD absent, radial pulses 2+ bilaterally. ABD: soft, non-tender, non-distended, normoactive BS x4, no masses or HSM, no rebound, guarding, or rigidity, negative murphys sign. MUSK: normal strength, ROM, muscle tone, no atrophy. EXTREMITIES: warm, well-perfused, no swelling, cyanosis or rashes. NEURO: awake, alert, oriented x3, no focal neuro deficits, moving all extremities spontaneously. DDx considered, but not limited to: COVID - negative x2 URI - no sinus tenderness or purulent nasal discharge strep pharyngitis - neg rapid strep and neg throat cx PNA - possible, decreased breath sounds RUL pericardial effusion - possible, but no muffled heart sounds, JVD, or hypotension infective marvin/endo/myocardi tis - possible s/p recent cardiac ablation cat scratch disease - unlikely, had cat 1 day prior to sx onset mono - unlikely, pt had mono age 11 acute rheumatic fever - less likely, no rash, nodule, joint pain, chorea Work up/Results: chem 8 unremarkable; recent throat cx, rapid flu, rapid strep, and COVID test x2 all negative. Recent ECG showing NSR without acute ischemic changes. Patient escalated to ED for further work up and evaluation. Plan/Discussion: Patient escalated to ED for further w/u and evaluation of persistent fevers, chest tightness, and sob, s/p recent cardiac ablation. Patient understands and agrees with this plan. 911 called, report given to EMS on scene. In order to obtain further information and compare any laboratory results/values, I have accessed old patient records. This information was pertinent in my medical decision making today. link Not available 08/15/2020 16:32:45 10/04/2020 10/04/2020 Time On Scene with Patient: 00:19:42 [email or web address] Not available 10/04/2020 12:47:49 Plan of Treatment Reminders Order Date Submit Date Provider Last Modified By Organization Details Last Modified Time Details Appointments None recorded. Lab SARS CoV 2 RNA (COVID-19) , QL, chip separator-PCR, respirator y specimen 2020 021 SEUN [facility] (Centralized Electronic Ordering - All Locations), Patient Can Go To The Location Of Their Choice, [id number] 1 07:25:57 [facility] + ionized [facility], [facility], [address], [place], [address], 0 15:52:05 rapid flu (A+B) 2019 020 [email or web address] [facility], [address] [facility], [place], [address], 0 18:30:08 SARS CoV 2 RNA (COVID-19) , QL, chip separator-PCR, respirator y specimen 2019 020 [email or web address] [facility] (Centralized Electronic Ordering - All Locations), Patient Can Go To The Location Of Their Choice, [id number] 0 14:19:22 SARS CoV 2 RNA (COVID-19) , QL, chip separator-PCR, respirator y specimen 2019 020 [email or web address] [facility] (Centralized Electronic Ordering - All Locations), Patient Can Go To The Location Of Their Choice, [id number] 0 19:24:10 rapid strep group A, throat 2019 020 [employer] [facility], [address], [place], [address], 0 17:46:48 rapid flu (A+B) 2019 020 [email or web address] [facility], [address], [place], [address], 0 17:46:47 culture, throat 2019 020 SEUN [facility] (Centralized Electronic Ordering - All Locations), Patient Can Go To The Location Of Their Choice, [id number] 0 07:35:43 Referral None recorded. Procedures None recorded. Surgeries None recorded. Imaging None recorded. Medication Orders nystatin 100,000 unit/mL oral suspension 2020 021 AT[id number], [address] [place], [address], 1 12:50:59 ondansetro n 4 mg disintegra ting tablet 2019 020 INTERFACE [id number], [address] [place], [address], 0 18:38:35 Patient TargetsNo targets recorded. Patient Instructions Encounter Date Encounter Id Patient Instructions Last Modified By Organization Details Last Modified Time 08/07/2020 [id number] [facility] came to evaluate your fever, sore throat, headache, fatigue, muscle aches, loss of taste and smell, stomach aches, and diarrhea. Your rapid flu and strep test was negative. You likely have COVID-19 with recent exposure and current symptoms. Your COVID test and throat culture should result in 3-5 days, we will call you with the results. Continue to quarantine for at least 14 days, you must be without fever or symptoms for at least 48 hours prior to breaking quarantine. Continue care per your primary care. Hydrate well. [facility] for new or worsening symptoms. If you develop severe shortness of breath or weakness call 911 or go to the ER. Thank you for your visit with [facility] today. We cannot always find the exact cause of your symptoms during your initial visit. Please follow up with your primary care provider or specialist to be rechecked or seek medical attention if your symptoms do not go away or get worse. If you develop any new or worsening symptoms and need after hours care, please go to nearest ER and/or call 911. If you have additional concerns or develop a change in your condition between 8am-10pm, please call [facility] at [phone] to help navigate your care. link Not available 08/07/2020 17:51:47 10/04/2020 [id number] candidiasis: car e instructions Not available 10/04/2020 12:45:05 coronavirus (covid-19): care instructions Not available 10/04/2020 13:09:19 Reason for Referral None Reported. Results Created Date Observation Date Name Description Value Unit Range Abnormal Flag Note LastModifiedBy Organization Detail LastModifiedTime 08/07/20 20 08/07/2020 cultu relandon t specimen description THROAT SWAB Not Available [facility] (Centralized Electronic Ordering - All Locations) Patient Can Go To The Location Of Their Choice, [facility] 08/10/2020 07:35:43 08/07/2008/07/2020 cultu relandon special requests NONE Not Available [facility] (Centralized [facility] Ordering - All Locations) Patient Can Go To The Location Of Their Choice, [facility] 08/10/2020 07:35:43 08/07/20 20 08/10/2020 cultjoanna relandon t culture 4+ NORMAL MARCK Not Available [facility] (Centralized Electronic Ordering - All Locations) Patient Can Go To The Location Of Their Choice, [facility] 08/10/2020 07:35:43 08/07/20 20 08/10/2020 dereje relandon t report status FINAL 2019 Not Available [facility] (Centralized Electronic Ordering - All Locations) Patient Can Go To The Location Of Their Choice, [facility] 08/10/2020 07:35:43 08/07/20 20 08/11/2020 SARS CoV 2 RNA (COVI D-19) , QL, chip separator-P CR, respi rator y speci men covid-19, (RT)-PCR (notde ) Not detec shi 2019- novel Coron aviru s (2019 -nCoV ) not detec shi by the qRT-P CR assay . If clini raul suspi cion for COVID -19 is high, ethan nue to maint ain preca ution s and consi dagoberto repea t testi ng. Resul t repor shi to [facility]. This test has been autho rized by the FDA under an Emerg ency Use Autho rizat ion (EUA) for use by autho rized labor atori es. Test perfo rmed by Clini raul [facility] or[facility] at the [facility] and [facility], [address] [place] [address] . CLIA ID: [id number] , CAP: [id number]. Medic al Direc tor: Malia Dave, PhD FAC (NOTE ) The CRSP SARS- CoV-2 Real- time Rever se Trans cript ase (RT)- PCR Diagn ostic Assay is a real- time RT-PC R test inten ded for the quali tativ e detec tion of nucle ic acid from the SARS- CoV-2 in nasop haryn geal and oroph aryng eal swabs colle cted from indiv idual s who may have contr acted the virus . Testi ng is limit ed to the Clini raul Resea [facility] or at the [facility] which is certi fied under the Clini raul Labor atory Impro vemen t Amend ments of 1987 (CLIA ), 42 U.S.C . ?263a , to perfo rm high compl exity tests . = Posit loli resul ts are indic ative of activ e infec tion with SARS- CoV-2 but do not rule out bacte rial infec tion or co-in fecti on with other virus es. The agent detec shi may not be the defin ite cause of disea se. In addit ion, nucle ic acid detec tion can persi st follo wing clear ance of activ e viral repli catio n. Labor atori es withi n [place] and its leticia zaki s are requi red to repor t all posit loli resul ts to the appro priat e publi c healt h autho ritie s. = Negat loli resul ts do not precl ude SARS- CoV-2 infec tion and shoul d not be used as the sole basis for patie nt treat ment or other patie nt manag ement decis ions. Negat loli resul ts must be combi omkar with clini raul obser vatio ns, patie nt histo ry, and epide miolo gical infor matio n. Not Available [facility] (Centralized Electronic Ordering - All Locations) Patient Can Go To The Location Of Their Choice, [id number] 08/11/2020 12:39:00 08/07/20 20 08/07/2020 rapid strep group A, throa t Strep negati ve Not Available [facility] [address] [place], [address], 08/07/2020 17:43:47 08/07/20 20 08/07/2020 rapid strep group A, throa t Control Visual ized / Valid Not Available [facility] [address] [place], [address], 08/07/2020 17:43:47 08/07/20 20 08/07/2020 rapid flu (A+B) Flu A negati ve Not Available [facility] [address] [place], [address], 08/07/2020 17:43:51 08/07/20 20 08/07/2020 rapid flu (A+B) Flu B negati ve Not Available [facility] [address] [place], [address], 08/07/2020 17:43:51 08/07/20 20 08/07/2020 rapid flu (A+B) Control Visual ized / Valid Not Available [facility] [address] [place], [address], 08/07/2020 17:43:51 08/11/20 20 08/13/2020 SARS CoV 2 RNA, QL probe , unspe cifie d speci men covid-19 PCR result (neg) normal NEGAT LOLI 2019- novel Coron aviru s (2019 -nCoV ) not detec shi by real- time RT-PC R. Note: If clini raul suspi cion for COVID -19 is high, ethan nue to maint ain preca ution s and consi dagoberto repea t testi ng. Resul t repor shi to [facility]. To preve nt error s in diagn osis, test resul ts shoul d be inter prete d in the shree xt of clini raul findi ngs and other labor atory data. Rare polym orphi sms exist that could lead to false -nega tive or false -posi tive resul ts. If resul ts obtai omkar do not match the clini raul findi ngs, addit ional testi [place] d be consi dered . This test has been autho rized by the FDA under an Emerg ency Use Autho rizat ion (EUA) for use by autho rized labor atori es. Testi north perfo rmed by real time PCR [email or web address] SARS- CoV-2 test. Not Available [facility] (Centralized Electronic Ordering - All Locations) Patient Can Go To The Location Of Their Choice, [id number] 08/13/2020 20:00:30 08/11/20 20 08/13/2020 SARS CoV 2 RNA, QL probe , unspe cifie d speci men covid-19 PCR specimen source NASAL Not Available [facility] (Centralized Electronic Ordering - All Locations) Patient Can Go To The Location Of Their Choice, [id number] 08/13/2020 20:00:30 08/11/20 20 08/11/2020 rapid flu (A+B) Flu A negati ve Not Available [facility] [address] [place], [address], 08/11/2020 18:29:47 08/11/20 20 08/11/2020 rapid flu (A+B) Flu B negati ve Not Available [facility] [address] [place], [address], 08/11/2020 18:29:47 08/11/20 20 08/11/2020 rapid flu (A+B) Control Visual ized / Valid Not Available [facility] [address] [place], [address], 08/11/2020 18:29:47 08/15/20 20 08/15/2020 BMP + ioniz ed calci um, serum or plasm a glu 78 mg/dL 70-105 Not Available [facility] [address] [facility], [place], [address], 08/15/2020 15:52:05 08/15/20 20 08/15/2020 BMP + ioniz ed calci um, serum or plasm a BUN 17 mg/dL 8-26 Not Available [address], [address], 08/15/2020 15:52:05 08/15/20 20 08/15/2020 BMP + ioniz ed calci um, serum or plasm a crea 0.8 mg/dL 0.6-1. 3 Not Available [address], [address], 08/15/2020 15:52:05 08/15/20 20 08/15/2020 BMP + ioniz ed calci um, serum or plasm a Na 140 mmol/ L 138-14 6 Not Available [address], [address], 08/15/2020 15:52:05 08/15/20 20 08/15/2020 BMP + ioniz ed calci um, serum or plasm a K 3.8 mmol/ L 3.5-4. 9 Not Available [address], [address], 08/15/2020 15:52:05 08/15/20 20 08/15/2020 BMP + ioniz ed calci um, serum or plasm a cL 106 mmol/ L 98-109 Not Available [address], [address], 08/15/2020 15:52:05 08/15/20 20 08/15/2020 BMP + ioniz ed calci um, serum or plasm a TCO2 24 mmol/ L 24-29 Not Available [address], [address], 08/15/2020 15:52:05 08/15/20 20 08/15/2020 BMP + ioniz ed calci um, serum or plasm a angap 16 mmol/ L 10-20 Not Available [address] [place], [address], 08/15/2020 15:52:05 08/15/20 20 08/15/2020 BMP + ioniz ed calci um, serum or plasm a ica 1.16 mmol/ L 1.12-1 .32 Not Available [facility] [address] [place], [address], 08/15/2020 15:52:05 08/15/20 20 08/15/2020 BMP + ioniz ed calci um, serum or plasm a HCT 49 %pcv 38-51 Not Available [facility] [address] [place], [address], 08/15/2020 15:52:05 08/15/20 20 08/15/2020 BMP + ioniz ed calci um, serum or plasm a Hb 16.7 g/dL 12-17 Not Available [facility] [address] [place], [address], 08/15/2020 15:52:05 10/04/19 21 10/05/2020 SARS CoV 2 RNA (COVI D-19) , QL, chip separator-P CR, respi rator y speci men covid-19, (RT)-PCR (neg) NEGAT LOLI 2019- novel Coron aviru s (2019 -nCoV ) not detec shi by the qRT-P CR assay . If clini raul suspi cion for COVID -19 is high, ethan nue to maint ain preca ution s and consi dagoberto repea t testi ng. Resul t repor shi to the [facility]. This test has been autho rized by the FDA under an Emerg ency Use Autho rizat ion (EUA) for use by autho rized labor atori es. Test perfo rmed by [facility] ra[facility] or[facility] at the [facility] of [facility] and [facility], [address] [facility] [place] [address] . CLIA ID: [id number] , CAP: [id number]. Medic al Direc tor: Malia Dave, PhD FAC (NOTE ) The CRSP SARS- CoV-2 Real- time Rever se Trans cript ase (RT)- PCR Diagn ostic Assay is a real- time RT-PC R test inten ded for the quali tativ e detec tion of nucle ic acid from the SARS- CoV-2 in nasop haryn geal and oroph aryng eal swabs colle cted from indiv idual s who may have contr acted the virus . Testi ng is limit ed to the Clini raul [facility] at the [facility] which is certi fied under the Clini raul Labor atory Impro vemen t Amend ments of 1987 (CLIA ), 42 U.S.C . ?263a , to perfo rm high compl exity tests . = Posit loli resul ts are indic ative of activ e infec tion with SARS- CoV-2 but do not rule out bacte rial infec tion or co-in fecti on with other virus es. The agent detec shi may not be the defin ite cause of disea se. In addit ion, nucle ic acid detec tion can persi st follo wing clear ance of activ e viral repli catio n. Labor atori es withi n the [place] and its leticia zaki s are requi red to repor t all posit loli resul ts to the appro priat e publi c healt h autho ritie s. = Negat loli resul ts do not precl ude SARS- CoV-2 infec tion and shoul d not be used as the sole basis for patie nt treat ment or other patie nt manag ement decis ions. Negat loli resul ts must be combi omkar with clini raul obser vatio ns, patie nt histo ry, and epide miolo gical infor matio n. Not Available [facility] (Centralized Electronic Ordering - All Locations) Patient Can Go To The Location Of Their Choice, [id number] 10/06/2020 07:25:57 10/30/19 21 10/29/2020 CBC w/ auto diff WBC 6.9 K/mm3 (4.0-1 1.0) Not Available [facility] (Centralized Electronic Ordering - All Locations) Patient Can Go To The Location Of Their Choice, 10/29/2020 13:31:10/30/1910/29/2020 CBC w/ auto diff RBC 5.31 M/mm3 (4.70- 6.10) Not Available [facility] (Centralized Electronic Ordering - All Locations) Patient Can Go To The Location Of Their Choice, 10/29/2020 13:31:10/30/1910/29/2020 CBC w/ auto diff HGB 16.1 gm/dL (13.7- 17.1) Not Available [facility] (Centralized Electronic Ordering - All Locations) Patient Can Go To The Location Of Their Choice, 10/29/2020 13:31:10/30/1910/29/2020 CBC w/ auto diff HCT 49.2 % (40.5- 50.0) Not Available [facility] (Centralized Electronic Ordering - All Locations) Patient Can Go To The Location Of Their Choice, 10/29/2020 13:31:10/30/1910/29/2020 CBC w/ auto diff MCV 92.7 fL (80.0- 94.0) Not Available [facility] (Centralized Electronic Ordering - All Locations) Patient Can Go To The Location Of Their Choice, 10/29/2020 13:31:10/30/1910/29/2020 CBC w/ auto diff MCH 30.3 pg (27.0- 34.0) Not Available [facility] (Centralized Electronic Ordering - All Locations) Patient Can Go To The Location Of Their Choice, 10/29/2020 13:31:10/30/1910/29/2020 CBC w/ auto diff MCHC 32.7 g/dL (33.0- 37.0) low Not Available [facility] (Centralized Electronic Ordering - All Locations) Patient Can Go To The Location Of Their Choice, 10/29/2020 13:31:10/30/1910/29/2020 CBC w/ auto diff plt 296 K/mm3 (150-4 60) Not Available [facility] (Centralized Electronic Ordering - All Locations) Patient Can Go To The Location Of Their Choice, 10/29/2020 13:31:10/30/1910/29/2020 CBC w/ auto diff RDW-SD 43.9 fL (<47.0 ) Not Available [facility] (Centralized Electronic Ordering - All Locations) Patient Can Go To The Location Of Their Choice, 10/29/2020 13:31:10/30/1910/29/2020 CBC w/ auto diff MPV 9.7 fL (9.4-1 2.4) Not Available [facility] (Centralized Electronic Ordering - All Locations) Patient Can Go To The Location Of Their Choice, 10/29/2020 13:31:10/30/1910/29/2020 CBC w/ auto diff automated NRBC 0.0 #/100 _WBC' s Not Available [facility] (Centralized Electronic Ordering - All Locations) Patient Can Go To The Location Of Their Choice, 10/29/2020 13:31:10/30/1910/29/2020 CBC w/ auto diff abs. NRBC 0.0 K/mm3 Not Available [facility] (Centralized Electronic Ordering - All Locations) Patient Can Go To The Location Of Their Choice, 10/29/2020 13:31:10/30/1910/29/2020 CBC w/ auto diff neut # 3.6 K/mm3 (1.3-7 .0) Not Available [facility] (Centralized Electronic Ordering - All Locations) Patient Can Go To The Location Of Their Choice, 10/29/2020 13:31:10/30/1910/29/2020 CBC w/ auto diff lymph # 2.3 K/mm3 (0.8-3 .1) Not Available [facility] (Centralized Electronic Ordering - All Locations) Patient Can Go To The Location Of Their Choice, 10/29/2020 13:31:10/30/1910/29/2020 CBC w/ auto diff mono# 0.8 K/mm3 (0.4-1 .3) Not Available [facility] (Centralized Electronic Ordering - All Locations) Patient Can Go To The Location Of Their Choice, 10/29/2020 13:31:10/30/1910/29/2020 CBC w/ auto diff eo # 0.1 K/mm3 (0.0-0 .4) Not Available [facility] (Centralized Electronic Ordering - All Locations) Patient Can Go To The Location Of Their Choice, 10/29/2020 13:31:10/30/1910/29/2020 CBC w/ auto diff baso # 0.1 K/mm3 (0.0-0 .1) Not Available [facility] (Centralized Electronic Ordering - All Locations) Patient Can Go To The Location Of Their Choice, 10/29/2020 13:31:10/30/1910/29/2020 CBC w/ auto diff abs. imm gran 0.0 K/mm3 Not Available [facility] (Centralized Electronic Ordering - All Locations) Patient Can Go To The Location Of Their Choice, 10/29/2020 13:31:10/30/1910/29/2020 CBC w/ auto diff neut 52.8 % (44-76 ) Not Available [facility] (Centralized Electronic Ordering - All Locations) Patient Can Go To The Location Of Their Choice, 10/29/2020 13:31:10/30/1910/29/2020 CBC w/ auto diff lymph 32.8 % (15-43 ) Not Available [facility] (Centralized Electronic Ordering - All Locations) Patient Can Go To The Location Of Their Choice, 10/29/2020 13:31:10/30/1910/29/2020 CBC w/ auto diff monocyte 12.0 % (4.5-1 0.5) high Not Available [facility] (Centralized Electronic Ordering - All Locations) Patient Can Go To The Location Of Their Choice, 10/29/2020 13:31:10/30/1910/29/2020 CBC w/ auto diff eo 1.2 % (0-6) Not Available [facility] (Centralized Electronic Ordering - All Locations) Patient Can Go To The Location Of Their Choice, 10/29/2020 13:31:10/30/1910/29/2020 CBC w/ auto diff baso 0.9 % (0-2) Not Available [facility] (Centralized Electronic Ordering - All Locations) Patient Can Go To The Location Of Their Choice, 10/29/2020 13:31:04 10/30/1910/29/2020 CBC w/ auto diff imm gran 0.3 % Not Available [facility] (Centralized Electronic Ordering - All Locations) Patient Can Go To The Location Of Their Choice, 10/29/2020 13:31:04 10/30/19 21 10/29/2020 CMP, serum or plasm a glucose 94 mg/dL (70-99 ) Not Available [facility] (Centralized Electronic Ordering - All Locations) Patient Can Go To The Location Of Their Choice, 10/29/2020 18:28:35 10/30/1910/29/2020 CMP, serum or plasm a BUN 13 mg/dL (6-20) Not Available [facility] (Centralized Electronic Ordering - All Locations) Patient Can Go To The Location Of Their Choice, 10/29/2020 18:28:35 10/30/1910/29/2020 CMP, serum or plasm a creatinine 0.8 mg/dL (0.7-1 .2) Not Available [facility] (Centralized Electronic Ordering - All Locations) Patient Can Go To The Location Of Their Choice, 10/29/2020 18:28:35 10/30/1910/29/2020 CMP, serum or plasm a sodium 140 mmol/ L (133-1 45) Not Available [facility] (Centralized Electronic Ordering - All Locations) Patient Can Go To The Location Of Their Choice, 10/29/2020 18:28:35 10/30/1910/29/2020 CMP, serum or plasm a potassium 4.4 mmol/ L (3.6-5 .2) Not Available [facility] (Centralized Electronic Ordering - All Locations) Patient Can Go To The Location Of Their Choice, 10/29/2020 18:28:35 10/30/1910/29/2020 CMP, serum or plasm a chloride 106 mmol/ L (98-10 7) Not Available [facility] (Centralized Electronic Ordering - All Locations) Patient Can Go To The Location Of Their Choice, 10/29/2020 18:28:35 10/30/1910/29/2020 CMP, serum or plasm a bicarbonate 25 mmol/ L (22-29 ) Not Available [facility] (Centralized Electronic Ordering - All Locations) Patient Can Go To The Location Of Their Choice, 10/29/2020 18:28:35 10/30/1910/29/2020 CMP, serum or plasm a anion gap 9 (4-17) Not Available [facility] (Centralized Electronic Ordering - All Locations) Patient Can Go To The Location Of Their Choice, 10/29/2020 18:28:35 10/30/1910/29/2020 CMP, serum or plasm a albumin 5.0 gm/dL (3.4-4 .8) high Not Available [facility] (Centralized Electronic Ordering - All Locations) Patient Can Go To The Location Of Their Choice, 10/29/2020 18:28:35 10/30/1910/29/2020 CMP, serum or plasm a calcium 10.1 mg/dL (8.6-1 0.5) Not Available [facility] (Centralized Electronic Ordering - All Locations) Patient Can Go To The Location Of Their Choice, 10/29/2020 18:28:35 10/30/1910/29/2020 CMP, serum or plasm a bilirubin,to leta 0.4 mg/dL (0-1.2 ) Not Available [facility] (Centralized Electronic Ordering - All Locations) Patient Can Go To The Location Of Their Choice, 10/29/2020 18:28:35 10/30/1910/29/2020 CMP, serum or plasm a total protein 7.2 gm/dL (6.2-8 .2) Not Available [facility] (Centralized Electronic Ordering - All Locations) Patient Can Go To The Location Of Their Choice, 10/29/2020 18:28:35 10/30/1910/29/2020 CMP, serum or plasm a Ag ratio 2.3 Not Available [facility] (Centralized Electronic Ordering - All Locations) Patient Can Go To The Location Of Their Choice, 10/29/2020 18:28:35 10/30/1910/29/2020 CMP, serum or plasm a AST 20 U/L (0-40) Not Available [facility] (Centralized Electronic Ordering - All Locations) Patient Can Go To The Location Of Their Choice, 10/29/2020 18:28:35 10/30/19 21 10/29/2020 CMP, serum or plasm a alk phos 69 U/L (40-12 9) Not Available [facility] (Centralized Electronic Ordering - All Locations) Patient Can Go To The Location Of Their Choice, 10/29/2020 18:28:35 10/30/19 21 10/29/2020 CMP, serum or plasm a ALT 26 U/L (0-41) Not Available [facility] (Centralized Electronic Ordering - All Locations) Patient Can Go To The Location Of Their Choice, 10/29/2020 18:28:35 10/30/19 21 10/29/2020 CMP, serum or plasm a est GFR non 128 mL/mi n/1.7 3_M2 Not Available [facility] (Centralized Electronic Ordering - All Locations) Patient Can Go To The Location Of Their Choice, 10/29/2020 18:28:35 10/30/1910/29/2020 CMP, serum or plasm a est GFR 149 mL/mi n/1.7 3_M2 Creat inine based estim ated glome rular filtr ation rate (eGFR ) is calcu lated using the Chron ic Kidne y Disea se Epide miolo gy Colla borat ion (CKD- EPI). The CKD-E PI creat inine equat ion has not been valid ated in child noris (<18 years ), pregn ant women or in some racia l or ethni c subgr oups other than Cauca sians and Afric an Ameri cans. Not Available [facility] (Centralized Electronic Ordering - All Locations) Patient Can Go To The Location Of Their Choice, 10/29/2020 18:28:35 10/30/1910/29/2020 TSH, serum or plasm a TSH 0.34 uIU/m L (0.4-4 .00) low Not Available [facility] (Centralized Electronic Ordering - All Locations) Patient Can Go To The Location Of Their Choice, 10/29/2020 20:55:55 10/30/1910/29/2020 T4, free, serum free T4 1.37 NG/dL (0.70- 1.80) Not Available [facility] (Centralized Electronic Ordering - All Locations) Patient Can Go To The Location Of Their Choice, [id number] 10/29/2020 21:09:42 Result Notes None recorded. Problems Name Problem SNOMED Code Status Onset Date Resolution Date Notes Provider Name and Address Organization Details Recorded Time Attention deficit hyperactivit y disorder 219282344 Active 2019 ELSY TINAJERO [address], [place], [address], [place] [facility] 0 17:31:41 Problem Notes None recorded. Procedures Surgical History Date Name Laterality Status Provider Name and Address Organization Details Recorded Time 08/15/20 20 Venipuncture - completed ELSY TINAJERO [address], [place], [address], [place] [facility] 08/15/2020 16:26:37 08/11/20 ECG Interpretation - completed ELSY JOLLY [address], [place], [address], [place] [facility] 08/11/2020 20:06:30 Imaging Results None recorded. Procedure Notes None recorded. Medical Equipment None Reported. Allergies No known drug allergies Medications Name Sig Start Date Stop Date Status Note LastModified by Organization Details LastModified Time lamotrigine 150 mg tablet TAKE 1 TABLET BY MOUTH EVERY DAY 08/07 completed Not Available Not Available Not Available nystatin 100,000 unit/mL oral suspension TAKE 5ML BY MOUTH FOUR TIMES DAILY DIRECTED FOR 10 DAYS active Not Available Not Available No t Available clonidine HCl 0.1 mg tablet TAKE 1 TABLET BY MOUTH EVERY DAY AT BEDTIME NEEDED FOR SLEEP active Not Available Not Available No t Available acetaminoph en 325 mg tablet TAKE 2 TABLETS BY MOUTH EVERY 4 HOURS NEEDED FOR FEVER. active Not Available Not Available No t Available lamotrigine 200 mg tablet TAKE 1 TABLET BY MOUTH EVERY DAY 08/07 completed Not Available Not Available Not Available albuterol sulfate 2.5 mg/3 mL (0.083 %) solution for nebulizatio n INHALE 1 VIAL VIA NEBULIZER EVERY 6 HOURS NEEDED FOR WHEEZING active Not Available Not Available No t Available cetirizine 10 mg tablet TAKE 1 TABLET BY MOUTH EVERY DAY active Not Available Not Available No t Available azithromyci n 250 mg tablet TAKE 2 TABLETS BY MOUTH TODAY, THEN TAKE 1 TABLET DAILY FOR 4 DAYS 08/07 completed Not Available Not Available Not Available bacitracin 500 unit/gram eye ointment APPLY 0.25 INCHES TO BOTH EYES EVERY 4 HOURS,X7 DAYS 08/07 completed Not Available Not Available Not Available prazosin 1 mg capsule TAKE 1 2 TABLETS AT BEDTIME NEEDED FOR SLEEP/NIG HTMARES 08/07 completed Not Available Not Available Not Available prednisone 20 mg tablet TAKE 2 TABLETS BY MOUTH EVERY DAY FOR 5 DAYS 08/07 completed Not Available Not Available Not Available olanzapine 5 mg tablet TAKE 1 TABLET BY MOUTH AT BEDTIME 08/07 completed Not Available Not Available Not Available lithium carbonate ER 300 mg tablet,exte nded release TAKE 2 TABLETS EVERY MORNING AND 3 TABLETS AT NIGHT 08/07 completed Not Available Not Available Not Available fluocinonid e 0.05 % topical ointment APPLY TOPICALLY TO TRUNK, ARMS AND LEGS TWICE A DAY NEEDED FOR FLARES active Not Available Not Available No t Available lamotrigine 25 mg tablet TAKE 1 TABLET EVERY DAY FOR 2 WEEKS, THEN 2 TABLETS EVERY DAY 08/07 completed Not Available Not Available Not Available meloxicam 7.5 mg tablet TAKE 1 TABLET BY MOUTH EVERY DAY active Not Available Not Available No t Available lithium carbonate 300 mg capsule TAKE 1 CAPSULE BY MOUTH DAILY AT BEDTIME FOR 1 WEEK THEN INCREASE TO 2 CAPSULES AT BEDTIME. 08/07 completed Not Available Not Available Not Available benzonatate 100 mg capsule TAKE 1 CAPSULE BY MOUTH 3 TIMES A DAY FOR 14 DAYS NEEDED FOR COUGH active Not Available Not Available No t Available Concerta 54 mg tablet,exte nded release TAKE 1 TABLET BY MOUTH EVERY DAY active Not Available Not Available No t Available buspirone 30 mg tablet TAKE 1 TABLET BY MOUTH TWICE A DAY 10/04 completed Not Available Not Available Not Available buspirone 10 mg tablet TAKE 1 TABLET BY MOUTH 3 TIMES A DAY 10/04 completed Not Available Not Available Not Available naproxen 500 mg tablet,trent yed release TAKE 1 TABLET BY MOUTH TWICE A DAY FOR 7 DAYS 08/07 completed Not Available Not Available Not Available lidocaine 5 % topical patch APPLY 1 PATCH DAILY TO 3 AREAS OF PAIN NEEDED. REMOVE AFTER 12 HOURS. active Not Available Not Available No t Available hydroxyzine HCl 25 mg tablet TAKE 1 TABLET BY MOUTH TWICE A DAY NEEDED FOR ANXIETY active Not Available Not Available No t Available testosteron e cypionate 200 mg/mL intramuscul ar oil INJECT 0.8 ML INTRAMUSC ULARLY OR SUBCUTANE OUSLY EVERY 14 DAYS X4 WEEKS. active Not Available Not Available No t Available ibuprofen 600 mg tablet TAKE 1 TABLET BY MOUTH EVERY 6 HOURS NEEDED FOR MILD PAIN active Not Available Not Available No t Available albuterol sulfate HFA 90 mcg/actuati on aerosol inhaler INHALE 2 PUFFS EVERY 4 HOURS NEEDED WHEEZING/ SHORTNESS OF BREATH active Not Available Not Available No t Available colchicine 0.6 mg tablet TAKE 1 TABLET BY MOUTH EVERY DAY active Not Available Not Available No t Available BD Luer-Zaid Syringe 3 mL 18 x 1 1/2 USE TO DRAW TESTESTER ONE. active Not Available Not Available No t Available ondansetron 4 [address] disintegr[address] ing tablet PLACE 2 TABLET(S) EVERY 8 HOURS BY TRANSLING UAL ROUTE NEEDED FOR 5 DAYS. active Not Available Not Available No t Available lamotrigine 100 mg tablet TAKE 1 TABLET BY MOUTH EVERY DAY STARTING 12/11/1908/07 completed Not Available Not Available Not Available buspirone 15 mg tablet TAKE 1 TABLET BY MOUTH 3 TIMES A DAY active Not Available Not Available No t Available Cough Syrup DM 10 mg-100 mg/5 mL active Not Available Not Available Not Available BD Regular Bevel [place] 25 gauge x 5/8 FOR USE WITH GENDER AFFIRMING HORMONAL THERAPY, USE TO INJECT, WEEKLY active Not Available Not Available No t Available BD PrecisionGl marcus 25 gauge x 1 needle USE TO INJECT TESTOSTER ONE. active Not Available Not Available No t Available meloxicam active Not Available Not Jessica ilable Not Available Vitals Date Recorded Heart rate Oxygen saturation Oxygen saturation in Arterial blood by Pulse oximetry Body temperature Respiratory rate Systolic blood pressure Diastolic blood pressure Provider Name and Address Organization Details Last Updated DateTime 0 86 /min 99 % 99 % 98.5 [degF] 20 /min 106 mm[Hg] 76 mm[Hg] Not Available [facility] 0 17:26:11 Date Recorded Heart rate Body temperature Oxygen saturation Oxygen saturation in Arterial blood by Pulse oximetry Respiratory rate Systolic blood pressure Diastolic blood pressure Provider Name and Address Organization Details Last Updated DateTime 0 86 /min 98.2 [degF] 98 % 98 % 16 /min 130 mm[Hg] 80 mm[Hg] Not [facility] 0 18:16:06 Date Recorded Respiratory rate Heart rate Body temperature Oxygen saturation Oxygen saturation in Arterial blood by Pulse oximetry Systolic blood pressure Diastolic blood pressure Provider Name and Address Organization Details Last Updated DateTime 0 16 /min 72 /min 99.6 [degF] 98 % 98 % 126 mm[Hg] 82 mm[Hg] Not Available [facility] 0 15:17:46 Date Recorded Heart rate Oxygen saturation Oxygen saturation in Arterial blood by Pulse oximetry Body temperature Respiratory rate Systolic blood pressure Diastolic blood pressure Provider Name and Address Organization Details Last Updated DateTime 1 72 /min 98 % 98 % 98.8 [degF] 18 /min 120 mm[Hg] 70 mm[Hg] Not Available [facility] 1 12:31:42 Social History Question Answer Notes LastModified by Organizat ion Details LastModified Time Tobacco Smoking Status Never Smoker ELSY TINAJERO [address] [place], [address], [place] [facility] 08/07/2020 17:34:38 Do You Have An Advance Directive? Yes Information not available 08/07/2020 Excessive Alcohol Or Drug Use Yes Medical Marijuana Information not available 08/07/2020 Sex: Unknown Functional Status None recorded. Mental Status None recorded. Family History Relationship Description Onset Age of this Age Resolved Age Notes LastModified by Organization Details LastModified Time Mother Diabetes mellitus [email or web address] Not available 2019 17:33:40 Medical History Condition Response Diabetes N Coronary Artery Disease N High Cholesterol N Cancer N Pulmonary Embolism N Stroke N Hypertension N Depression Y COPD N Asthma Y Kidney Disease N Past Encounters Encounter ID Performer Location Encounter Start Date Encounter Closed Date Diagnosis/Indication Diagnosis SNOMED-CT Code Diagnosis ICD10 Code Diagnosis Note [id number] ELSY TINAJERO [facility] [address] [place] [address] 08/07/2020 17:24:03 08/08/2020 20:12:17 Viral syndrome 317958160 B34.9 Exposure t o communicable disease 739759062 Z20.828 [id number] ELSY JOLLY [facility] [address] [place] [address] 08/11/2020 17:38:27 08/12/2020 15:26:23 Cough 71938401 R05 Generalize d aches and pains 90825813 R52 Exposure t o communicable disease 661667608 Z20.828 Nausea 388920971 R11.0 [id number] ELSY TINAJERO [facility] [address] [place] [address] 08/15/2020 15:01:04 08/16/2020 17:29:23 Malaise and fatigue 418676489 R53.81 Dyspnea 763944140 R06.00 Chest pain 13914766 R07. 9 Viral syndrome 763310485 B34.9 [id number] Lupe Amaya NP [facility] [address] [place] [address] 10/04/2020 12:29:09 10/06/2020 03:53:58 [id number] Lupe Amaya NP [facility] [address] [place] [address] 10/04/2020 12:29:11 10/04/2020 21:29:34 Exposure to communicable disease 623879427 Z20.822 Candidiasis of mouth 797 52995 B37.0 Suspected COVID-19 95607 4004 Z20.828 Overview/H istory: Patient is an alert 20 year old male who presents with request for Covid testing as he was directly exposed through a [employer] last week. Patient has been symptomati c with headache, sore throat, dry cough and intermitte nt fever. Exam: Patient afebrile. HRR 72, S1, S2. Trachea midline, no JVD distention . LSCTA bilaterall y, no work of breathing, speaking in full sentences. Moist mucous membranes, no lymphadeno niecy. ENT/mouth exam wnl with exception to oral thrush noted to oropharynx /tongue. Abdomen SNT, + bowel sounds x 4 quadrants. DDx considered , but not limited to:covid likely given exposureFl u unlikely, afebrileTh [place] +Asthma exacerbati on unlikely, clear lung sounds Work up/Results : Covid swab obtained and sent to lab Plan/Discu ssion:1. report covid results to patient/pc p2. Support symptoms with OTC remedies3. Nystatin 4 x daily for oral thrush, rinse mouth after inhaler use4. Patient able to reiterate quarantine instructio ns, discussed s/s to report to PCP vs. acute s/s to report to ED/call 911. Proper Personal Protective Equipment (PPE), including {{gloves, eye protection , masks, and gowns, shoe covers matti ves, eye protection and masks glov es, eye protection gloves, eye protection , N95 mask, gown, and shoe covers * surgical mask with face-shiel d, gloves, gown and shoe covers palak gical mask with face-shiel d, gloves}} were donned and doffed nancy goodwin and all equipment cleaned using approved technique with germicidal disposable wipes prior to and after care of this patient according to [facility]'s infection prevention protocols. In order to obtain further informatio n and compare any laboratory results/va lues, I have accessed {{old patient records* p atient records on the [employer] [facility] r eviewed records with the PCP}}. This informatio n was pertinent in my medical decision making today. Health Concerns Section Related Observation LastModified by Organization Detai ls LastModified Time None Recorded Concern Status LastModified by Organization Details LastModified Time None Recorded Advance Directives Directive Y: Payers Encounter Date Sequence Insurance Name Policy Number Policy Payan Covered Member ID Payan Member ID Guarantor Name 08/07/2020 1 [facility] [id number] Almas Lenny [id number] Almas Lenny 08/07/2020 2 [place] Almas Lenny [id number] Almas Lenny 08/11/2020 1 [facility] [id number] Almas Lenny [id number] Almas Lenny 08/11/2020 2 [place] Almas Lenny [id number] Almas Lenny 08/15/2020 1 [facility] [id number] Almas Lenny [id number] Almas Lenny 08/15/2020 2 [place] Almas Lenny [id number] Almas Lenny 10/04/2020 1 [facility] [id number] Almas Lenny [id number] Almas Lenny 10/04/2020 2 [place] [facility] Almas Lenny [id number] Almas Lenny 10/04/2020 1 [facility] [id number] Almas Lenny [id number] Almas Lenny 10/04/2020 2 [place] [facility] Almas Lenny [id number] Almas Lenny Notes Date Note Type Note Provider Name and Address Organization Details Recorded Time 08/07/2020 text/html 20-year-old Transgender male with past medical history significant for asthma, depression, and WPW status post recent ablation at [facility] by Dr. Little in May, new to [facility], who presents for a COVID test. Patient had a telehealth visit With his primary care yesterday who prescribed Tylenol, Motrin, and Tessalon Perles and recommended [facility] evaluation for COVID test. 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 The patient states that 2 days ago he began to feel feverish and then developed sore throat, headache, fatigue, muscle aches, loss of taste and smell, stomach aches, and diarrhea. He states the [id number] medications are helping somewhat. No chest pain, sob, palpitations, syncope, weakness. ELSY TINAJERO [address] [place], [address], [place] - [facility] 08/07/2020 18:21:51 08/11/2020 text/html 20yoM known to Christelle Arnett new to this provider [id number] 20-year-old Transgender male with past medical history significant for asthma, depression, and WPW is seen in follow up. 8 days ago the patient was working at [employer] and a covid positive patient coughed on him. Patient was seen 08/07 for similar symptoms and tested negative for covid. He reports continued cough with green sputum, chest pain, nausea and intermittent diarrhea. Reports loss of sense of taste and smell. continued sore throat. ELSY JOLLY [address] [place], [address], [facility] - [facility] 08/11/2020 20:10:46 08/15/2020 text/html 20-year-old male with past medical history significant for asthma, depression, and WPWStatus post recent cardiac ablation at [facility], known to [facility], who presents with complaints of worsening chest tightness and shortness of breath with exertion. The patient states that trying to get air in is difficult. He has been feeling very dazed and states that life does not feel real period also admits to intermittent fevers improved with Tylenol and ibuprofen. Also complains of muscle aches, chills, stomach pain, diarrhea, and sore throat. He has been using his nebulizer which helps his cough and fever somewhat. Admits to nausea without vomiting. States that food and drink go right through him. He has lost 10 pounds over the last 10 days. He states that he bought a cat in 1 day before the onset of the symptoms. He has several well healing scratches. No rash. He admits to both pleuritic and exertional chest tightness with associated shortness of breath and feeling like he is going to pass out. He has been lost to followup with cardiology due to the COVID pandemic. ELSY TINAJERO [address], [place], [address], [facility] - [facility] 08/15/2020 16:33:46 10/04/2020 text/html duplicate chart. Lupe Amaya NP [address], [place], [address], [facility] - [facility] 10/04/2020 13:31:31 10/04/2020 text/html Patient is a 20 year old alert male who is known to and new to this provider. Patient requests testing for covid. He has been symptomatic since this past Sunday. Patient has had direct exposure throught a co-worker. Symtoms include stuffy nose, sore throat, and intermittent fever. Medical history significant for asthma, depression, WPW, palpitations Lupe Thea Amaya, REINALDO [address], [place], [address], [place] - [facility] 10/04/2020 13:28:08
--- OUTSIDE RECORDS SUMMARY | 2024-12-29 21:58 | XMS_ITS | Encounter Summary ---
Author Organization [facility] Address [address] [place] [address] Care Team Providers Care Airport Operations Coordinator Name Role Phone RoxisarahabimbolaEda Primary Care Provider [phone] Encounter Details Date Type Department Care Team (Late st Contact Info) Description 09/06/2022 Corsohart Message [facility] [address] [place] [id number] Mychart, Generic Provider [address] [place] [address] [id number] LTM- Mcfp Video EEG Monitoring scheduled for 09-18-2022 (late pm). Social History Tobacco Use Types Packs/Day Years [...] on filedocumented in this encounter Care Teams Airport Operations Coordinator Relationship Specialty Start Date End Date Eda Bowens [address] [place] [address] PCP - General 05/24/22 documented as of this encounter
--- OUTSIDE RECORDS SUMMARY | 2024-12-29 21:58 | XMS_ITS | Encounter Summary ---
Author Organization [facility] Address [address] [place] [address] Care Team Providers Care Applied Behavior Science Specialist Name Role Phone KwanEda Primary Care Provider [phone] Encounter Details Date Type Department Care Team (Late st Contact Info) Description 09/27/2022 myChart Message [facility] [address] [place] [id number] Angelita Seth MD [address] [place] [address] Reactions Social History Tobacco Use Types Packs/Day Years [...] on filedocumented in this encounter Care Teams Applied Behavior Science Specialist Relationship Specialty Start Date End Date Eda Bowens [address] [place] [address] PCP - General 05/24/22 documented as of this encounter
--- OUTSIDE RECORDS SUMMARY | 2024-12-29 21:58 | XMS_ITS | Referral Summary ---
Author Organization [facility] Address [address] [place] [address] Care Team Providers Care Security Site Supervisor Name Role Phone Eda Bowens Primary Care Provider [phone] Allergies Active Allergy Reactions Criticality Noted Date [...] unless event lasts >5 minutes Convulsions 06/27/2022 Social History Tobacco Use Types Packs/Day Years [...] 09/18/2022 9:00 PM EST Plan of Treatment Not on file Insurance [facility] MEDIC[facility] Advance Directives Documents on File Type Date Recorded Patient Procurement Professional Expl fredi Health Care Proxy 09/19/2022 11:07 AM 11-25 * Full Code (Latest Code Status on File) Date Activated Date Inactivated Comments 09/20/2022 10:04 PM 09/25/2022 4:56 PM * DNR/DNI Date Activated Date Inactivated Comments 09/18/2022 8:31 PM 09/20/2022 10:04 PM Healthcare Agents on File Name Relationship Healthcare Agent Relationshi p Communication Shelleyzoe Soriano Friend Bert[facility] Care Age t Care Teams Security Site Supervisor Relationship Specialty Start Date End Date Eda Bowens [address] [place] [address] PCP - General 05/24/22
--- OUTSIDE RECORDS SUMMARY | 2024-12-29 21:58 | XMS_ITS | Encounter Summary ---
Author Organization [facility] Address [address] [place] [address] Care Team Providers Care Dump Grounds Checker Name Role Phone KwanEda Primary Care Provider [phone] Encounter Details Date Type Department Care Team (Late st Contact Info) Description 09/04/2022 Documentation [facility] [address] [place] [id number] Angelita Seth MD [address] [place] [address] Social History Tobacco Use Types Packs/Day Years [...] on filedocumented in this encounter Care Teams Dump Grounds Checker Relationship Specialty Start Date End Date Eda Bowens [address] [place] [address] PCP - General 05/24/22 documented as of this encounter
--- NOTE | 2024-12-29 23:34 | PC.NURSE ---
This marketing underwriter assumed care of this Pt at 2300.
[2024-12-29 23:58] LABS: Appearance Urine Clear; Color Urine Yellow; Glucose Urine UA Negative (Negative); Leukocyte Esterase Urine Large (3+) (Negative); Nitrite Urine Negative (Negative); PH 6.5 (5.0-9.0); Specific Gravity - Urine 1.015 (1.005-1.025); UMIC TRIGGER UACC YES; Urine Blood Negative (Negative); Urine Ketones 15 mg/dL (Negative); Urine Protein 30 (1+) mg/dL (Neg-Trace)
[2024-12-30] VITALS (7 sets, daily range): BP systolic 93–127; BP diastolic 49–71; PULSE 65–104; RESP 16–20; TEMP 36.1–37.1; O2SAT 92–96
[2024-12-30 00:07] LABS: MANUAL DIFF FLAG NO
[2024-12-30 00:09] LABS: Amphetamine Screen Urine POSITIVE (Not Detect); Barbiturates, Urine Not Detected (Not Detect); Benzodiazepines Screen Urine Not Detected (Not Detect); Buprenorphine Scr Not Detected (Not Detect); Cannabinoid Screen Urine POSITIVE (Not Detect); Cocaine Screen Urine Not Detected (Not Detect); Fentanyl, urine Not Detected (Not Detect); Methadone Screen, Urine Not Detected (Not Detect); Opiate Screen Urine POSITIVE (Not Detect); Oxycodone Screen Urine Positive (Not Detect); Phencyclidine Screen Urine Not Detected (Not Detect)
[2024-12-30 00:09] LABS: Basophils Absolute Auto 0.1 X10*3/uL (0.0-0.2); Basophils Percent Auto 0.7 % (0-2); Eosinophils Absolute Auto 0.3 X10*3/uL (0.0-0.4); Eosinophils Percent Auto 3.4 % (0-4); Hematocrit 44.1 % (42.0-52.0); Hemoglobin 15.1 g/dl (14.0-18.0); Imm Gran Abs Auto 0.01 X10*3/uL (0.00-0.03); Imm Gran Pct Auto 0.1 % (0.0-0.4); Lymphocytes Absolute Auto 2.4 X10*3/uL (1.2-4.9); Lymphocytes Percent Auto 31.8 % (20-40); Mean Corpuscular HGB Conc 34.2 g/dl (31.0-36.0); Mean Corpuscular Hemoglobin 30.4 pg (27.0-33.0); Mean Corpuscular Volume 88.7 fL (80.0-98.0); Mean Platelet Volume 9.9 fL (9.4-12.4); Monocytes Absolute Auto 0.9 X10*3/uL (0.1-1.2); Monocytes Percent Auto 11.9 % (2-11); Neutrophils Absolute Auto 3.9 x10*3/uL (2.0-8.3); Neutrophils Percent Auto 52.1 % (45-73); Platelet Count 215 X10*3/uL (160-400); Red Blood Count 4.97 X10*6/uL (4.60-5.80); Red Cell Distribution Width 13.1 % (11.0-16.0); White Blood Count 7.4 X10*3/uL (4.8-10.8)
[2024-12-30 00:26] LABS: Alanine Aminotransferase 46 U/L (0-40); Albumin Level 3.9 g/dL (3.5-5.0); Alkaline Phosphatase 52 U/L (39-117); Anion Gap 14 (12-20); Aspartate Amino Transferase 33 U/L (5-37); Bilirubin Total 0.7 mg/dL (0.0-1.0); Blood Urea Nitrogen 18 mg/dL (9-16); Carbon Dioxide 23 mmol/L (22-29); Chloride 109 mmol/L (96-108); Creatinine Clr Calc Pharmacy 138.3; Estimated Glomerular Filt Rate > 60; Ethanol < 10 mg/dL; Glucose Random 84 mg/dL (60-115); Potassium 3.9 mmol/L (3.3-5.1); Sodium 142 mmol/L (135-145); Total Protein 6.8 g/dL (6.5-8.0)
[2024-12-30 00:27] LABS: Bacteria Urine 3+ (None Seen); Hyaline Casts Urine 0-2 /LPF (0-2); RBC Urine 0-2 /HPF (0-2); Squamous Epithelial Cell Urine 0-2 /HPF (0-2); UACC Culture Trigger YES; WBC Urine >50 /HPF (0-5)
--- NOTE | 2024-12-30 02:05 | PC.NURSE ---
Pt placed self on floor, requesting medications. Pt informed Dr needs to place order. Pt 2 assist back to bed.
[2024-12-30] MEDS: Morphine Sulfate ER 15 MG TABLET.ER PO ×2 (02:18→13:20)
[2024-12-30] MEDS: clonazePAM 1 MG TABLET PO ×2 (02:19→21:59)
[2024-12-30] MEDS: hydrOXYzine HCL 25 MG TABLET PO (02:19)
--- NOTE | 2024-12-30 08:15 | PC.RT ---
RN notified RT of pt w/ trach. Pt asleep at this time in no distress. RT placed multiple spare trachs various sizes at bedside.
--- NOTE | 2024-12-30 08:20 | PC.NURSE ---
RT aware of patient having trach, extra supplies/ sizes of trach tubes placed by bedside for safety precautions. Patient continues to sleep, No respiratory distress noted.
--- NOTE | 2024-12-30 08:51 | PC.NURSE ---
Ari from [facility] bedside visiting patient at this time. Status update provided to Ari. Personal contact card provided to CM for further discussion. Plan of care ongoing.
[2024-12-30] MEDS: cefuroxime axetiL 250 MG TABLET PO ×2 (09:09→21:58)
--- NOTE | 2024-12-30 09:40 | PC.NURSE ---
Ari ([facility]) [phone].
--- NOTE | 2024-12-30 11:25 | MHC.CM.ED ---
Addendum entered by Caridad Gomez 12/30/24 13:45: Patient is also active with DDS per Ari. Original Note: Received case management consult from [facility]. Patient was at [facility] from 12/20-12/29. Patient was supposed to d/c home with resumption of [facility] with patient's mother. Per EMS, mother did not feel she was prepared to take care of patient. Patient was brought to [facility] via EMS. Referral made to [facility] [place] [facility] via [facility]. [facility] verifies patient is active with their agency. Attempted to meet with patient. Patient currently sleeping. Spoke with patient's [facility] medical case manager, Ari, via telephone at [phone]. 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 Patient was born female but identifies as a male. Had mastectomy but did not have buttom surgery. Patient currently has a lang. Patient's mother was aware patient would be d/c'd home and never stated she wasn't able to care for patient. Patient arrived home and was not let into the home. At this time, it appears SNF penitentiary placement might be necessary for the short term until a better living situation can be found. Referral will be broadcasted in Careport at this time. Continue to monitor for d/c needs.
--- NOTE | 2024-12-30 11:40 | PHA.MEDREC ---
Pharmacy Consult ? Medication Reconciliation Pharmacy has completed the medication reconciliation. Patient discharged from [facility] on 12/29, list of inpatient meds faxed over. These meds also correlate with med claim history.
--- NOTE | 2024-12-30 12:19 | PC.NURSE ---
report given to KENYATTA Lamb in overflow at this time.
[2024-12-30 12:21] LABS: Influenza A PCR NEGATIVE (Negative); Influenza B PCR NEGATIVE (Negative); Resp Syncy Virus RNA Qual PCR NEGATIVE (Negative); SARS COV2 PCR INHOUSE NEGATIVE (Negative)
[2024-12-30] MEDS: Metoprolol Tartrate 25 MG TABLET PO ×2 (13:00→21:55)
[2024-12-30] MEDS: Aspirin Enteric Coated 81 MG TABLET.DR PO (13:01)
[2024-12-30] MEDS: Famotidine 20 MG TABLET PO (13:01)
[2024-12-30] MEDS: Loratadine 10 MG TABLET PO (13:01)
[2024-12-30] MEDS: Tamsulosin HCL 0.4 MG CAPSULE PO (13:20)
[2024-12-30] MEDS: Sennosides 8.6 MG TABLET 17.2 MG PO (13:20)
--- NOTE | 2024-12-30 14:10 | PC.RT ---
Pt has an 8.0 Shiley uncuffed. Spare trachs at bedside. RT performed trach care, inner cannula cleaned.
--- NOTE | 2024-12-30 14:37 | PC.NURSE ---
Patient requesting AM adderall dose - ED provider notified via tigertext - no new orders at this time
--- NOTE | 2024-12-30 16:16 | PC.NURSE ---
call placed to sujey Chapman [facility] worker, requesting briefs be brought in as pt does not like the briefs that are in the hospital.
--- NOTE | 2024-12-30 16:49 | PC.NURSE ---
placed order for ensure to come with dinner trays. no ensure came with dinner tray. called kitchen who informed this RN that only nutrition and a DR can order the ensure. called ED to request order for ensure with meals.
[2024-12-30] MEDS: Amphetamine Mixed Salts 10 MG TABLET PO (16:53)
[2024-12-30] MEDS: Baclofen 10 MG TABLET 5 MG PO ×2 (16:53→21:58)
--- NOTE | 2024-12-30 20:00 | PC.NURSE ---
Assumed care for pt at 1900. Pt resting at the bedside, requesting Ensure. Dining services contacted who states Ensures have to be ordered by the Floral Arranger. Pt informed of this informatio and offered alternative drinks such as a milkshake which pt declined. Pt then became agitated, requesting Ensure, and throwing objects like paper and tissues outside the room. Pt then ordered their own diapers and Ensures from [employer] and eventually calmed down after redirection and active listening. No apparent distress noted. Diapers and Ensures are at the bedside. Dacosta in place with regular urine output. Pt able to make needs known and asks for assistance transferring to the commode. Monitoring is ongoing.
--- NOTE | 2024-12-30 20:51 | MHC.CM.ED ---
CM received return telephone call from Ari at [facility]. 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 He has been involved for the past year only. Patient's name is Almas Mcintosh, he was previously known as Trina Mcintosh.
[2024-12-30] MEDS: Morphine Sulfate ER 15 MG TABLET.ER 45 MG PO (21:56)
--- NOTE | 2024-12-31 03:39 | PC.NURSE ---
Pt called for assistance. When approached pt is upset and frustrated stating his pacifier was lost and could not find it. Pt also reports discomfort with the trach neck tie and is requesting replacement. Assistance provided in locating the pacifier. Respiratory called to bedside. New neck tie placed to hold trach in place. Pt tolerated well. Monitoring is ongoing.
[2024-12-31 07:47] VITALS: BP 102/64; PULSE 64; RESP 17; TEMP 36.5; O2SAT 96
--- NOTE | 2024-12-31 08:55 | MHC.CM.ED ---
Patient remains in ER overflow. Met with patient to explain SNF placement was going to be found for patient. Patient is hoping to go to [facility]. He has a friend that works there. T/W offered to send referral there. [facility] is the only facility that is willing to offer a bed at this time. Patient is concerned that it is far away. Patient was also in [facility] and did not like the care that was provided there. [facility] will be on-site today to complete assessment. Patient aware. Continue to monitor for d/c needs.
[2024-12-31] MEDS: cefuroxime axetiL 250 MG TABLET PO ×2 (09:14→21:41)
[2024-12-31] MEDS: Aspirin Enteric Coated 81 MG TABLET.DR PO (09:14)
[2024-12-31] MEDS: Tamsulosin HCL 0.4 MG CAPSULE PO (09:14)
[2024-12-31 09:15] VITALS: BP 102/64
[2024-12-31] MEDS: Famotidine 20 MG TABLET PO (09:15)
[2024-12-31] MEDS: Baclofen 10 MG TABLET 5 MG PO ×3 (09:15→21:40)
[2024-12-31] MEDS: Metoprolol Tartrate 25 MG TABLET PO ×2 (09:15→21:46)
[2024-12-31] MEDS: Sennosides 8.6 MG TABLET 17.2 MG PO (09:15)
[2024-12-31] MEDS: Loratadine 10 MG TABLET PO (09:15)
[2024-12-31] MEDS: Amphetamine Mixed Salts 10 MG TABLET PO ×2 (09:15→15:00)
[2024-12-31] MEDS: Morphine Sulfate ER 15 MG TABLET.ER PO (09:16)
--- NOTE | 2024-12-31 09:30 | PC.NURSE ---
Care of Pt assumed at change of shift. Pt provided with breakfast tray. AM med pass completed. Pt removes inner cannula of Trach and request for ti to be cleansed. This RN uses sterile water ans sterile cleaning kit to remove debris from cannula to Pts satisfaction. RT called to bedside for eval of Trach as well. Dacosta draining well. Urine is clear, dark yellow. Pt resting quietly at this time. NAD noted.
--- NOTE | 2024-12-31 11:59 | PC.NURSE ---
Attempted to medicate Pt with 12p Adderall. Pt becomes very upset stating he only takes his Adderall at 3p along with his muscle relaxer to prevent meltdowns at nighttime. Adderall held at this time. Unable to waste in pyxis as no other RN on unit at this time. Will administer at 3p along with Baclofen.
[2024-12-31] MEDS: Acetaminophen 325 MG TABLET 975 MG PO (15:03)
[2024-12-31] MEDS: hydrOXYzine HCL 25 MG TABLET PO (15:16)
[2024-12-31] MEDS: clonazePAM 1 MG TABLET PO ×2 (15:16→21:39)
--- NOTE | 2024-12-31 15:59 | MHC.CM.ED ---
Patient remains in ER overflow. Patient's trach was last changed in the OR at [facility] on 11/19/2024. Per Theresa of Dr Briseno's office, procedure was not complicated and further trach change outs could be performed at their outpatient pulmonary rehab trach clinic. This has not been arranged by patient yet. [facility] is requesting trach be changed prior to transferring to their facility. Shana CHIN aware and will speak to Dr Barnes to figure out how to change the trach while in the ER. Continue to monitor for d/c needs.
[2024-12-31] MEDS: oxyCODONE HCl Immed Release 5 MG TABLET PO (17:14)
[2024-12-31] MEDS: Morphine Sulfate ER 15 MG TABLET.ER 45 MG PO (21:39)
[2024-12-31 21:46] VITALS: BP 108/58; PULSE 73; RESP 16; TEMP 36.5; O2SAT 98
--- NOTE | 2024-12-31 23:17 | MHC.EDTECH ---
this tech assumed care of the pt @[id number]
--- NOTE | 2025-01-01 02:30 | PC.NURSE ---
Assumed care of patient HS meds admininstered as per OCT. Patient up to commode with assist. VSS resting at present time Bed alarm on , call bertrand within reach.
--- NOTE | 2025-01-01 05:51 | MHC.EDTECH ---
pt pressed call light roughly around the time of 0500, reported to the tech that it felt as if the trach had came out, the trach appeared to be in tact and the pt requested to have the collar tightened. After doing so the pt requested to be seen by the nurse, this tech question what the pt wanted to tell the nurse and the pt stated I need respiratory . RN made aware of the pt's request for respiratory and called in order to have respiratory team assess the pt.
[2025-01-01] MEDS: hydrOXYzine HCL 25 MG TABLET PO (06:00)
[2025-01-01 06:04] VITALS: BP 119/78; PULSE 52; RESP 20; TEMP 36.6; O2SAT 99
--- NOTE | 2025-01-01 06:21 | PC.NURSE ---
Patient expressing concern that trach is not in correctly, stating when he woke up trach ties were loose. Trach ties were tightened previously per pt request. Respiratory called to assess and confirmed trach is in place as is should be. O2 sats 96% , patient does not appear in any distress. Atarax admininstered for anxiety. Will continue to monitor.
--- NOTE | 2025-01-01 06:22 | MHC.EDTECH ---
at this time this tech assisted the pt onto the commode, w/ a one person assist. Pt requested privacy after safely getting onto the commode. Call light given for safety and pt educated to press call light when he is done using the commode
--- NOTE | 2025-01-01 09:34 | PC.NURSE ---
Care of Pt assumed at change of shift. Pt emotional this AM and refused VS for MOBILE MANAGER. Pt expresses difficulty sleeping last night and VS done just prior to shift change therefore refusing to have them redone. Pt provided with breakfast tray. Discussed plan to allow Pt to rest and then complete AM med pass; Pt verbalizes understanding and agrees with this plan. This RN attempts to completed AM med pass x2 (7096 and 1906) Pt sleeping soundly with pacifier in. Will allow Pt to rest and complete AM med pass when Pt awake. NAD noted at this time.
--- NOTE | 2025-01-01 10:11 | PC.NURSE ---
Shadia from [facility] arrives to unit to drop off an extra large tote bag of Pts belongings/supplies. Supplies placed in Pts room.
--- NOTE | 2025-01-01 10:49 | PC.NURSE ---
Pt woken by this RN for AM med pass. Pt informed the [facility] worker had stopped by and dropped off supplies and Pt becomes irate, using foul language regarding that he was not woken up at that time. This RN explains to Pt that given he expressed that he did not sleep well, a collective decision was made to allow the Pt to get rest. Pt reports he is going on a hunger strike and will not proceed with any care, medications, evals, or consults until the [facility] worker returns to meet with Pt. Pt explained that attempt will be made to contact LARRY Shadia and have her return but unable to guarantee this. Pt continues to refuse all care at this time. Lube Attendant from [facility] Ashlee Marie to interview Pt regarding a separate case.
--- NOTE | 2025-01-01 11:07 | PC.NURSE ---
Dr. Wiseman at bedside for eval. Call placed to Pts TESFAYE Chapman @ [phone] in an attempt to acquire the contact number of [facility] worker Shadia. Voicemail left and awaiting a call back.
--- NOTE | 2025-01-01 11:24 | MHC.CM.ED ---
Addendum entered by Caridad Gomez 01/01/25 16:16: MDS completed and sent to [facility] and [facility]. PAS[facility] Level 2 obtained and sent to both facilities. Still need MH leveling from [facility]. Original Note: Patient remains in ER overflow. Dominga CHIN reached out to Dr Wiseman. Dr Wiseman assessed patient at bedside. Will not be able to change trach bedside due to patient's anxiety. Will go to OR 01/02 at 1230pm. Andrew made aware. Still waiting to hear if [facility] is able to offer a bed. Still waiting for PAS[facility] Level 2. Continue to monitor for d/c needs.
--- NOTE | 2025-01-01 11:34 | PC.NURSE ---
Call back received from [facility] TESFAYE Chapman. Explanation of this morning events given. Ari reports he cannot provide Harry Reno's contact information and also reports the he feels that the trip to come back would not be possible today. Pt calls this RN to bedside. [facility] and was given LARRY Reno's cell phone number by [facility] personnel. Pt informed that this RN spoke with TESFAYE Chapman and was informed that Shadia is unlikely to return today. Pt reports he will call Shadia until she comes back and will not comply with any care until the day goes how it was supposed to. [facility] [place] Management aware of situation. Will continue to monitor
[2025-01-01] MEDS: Baclofen 10 MG TABLET 5 MG PO ×3 (11:57→21:58)
[2025-01-01] MEDS: Aspirin Enteric Coated 81 MG TABLET.DR PO (11:57)
[2025-01-01] MEDS: Tamsulosin HCL 0.4 MG CAPSULE PO (11:57)
[2025-01-01] MEDS: Morphine Sulfate ER 15 MG TABLET.ER PO (11:58)
[2025-01-01] MEDS: Famotidine 20 MG TABLET PO (11:58)
[2025-01-01] MEDS: Amphetamine Mixed Salts 10 MG TABLET PO ×2 (11:58→16:23)
[2025-01-01] MEDS: Sennosides 8.6 MG TABLET 17.2 MG PO (11:58)
[2025-01-01] MEDS: Nitrofurantoin Monohyd/M-Cryst 100 MG CAPSULE PO ×2 (11:59→21:58)
[2025-01-01] MEDS: Loratadine 10 MG TABLET PO (11:59)
--- NOTE | 2025-01-01 12:24 | PC.NURSE ---
Pt calls this RN to bedside. States he will now take his medications but will not permit a BP assessment d/t sensitivity trigger. Upon return to room, Pt is on the phone with TESFAYE Chapman. AM meds given with exception of Metoprolol as BP and HR could not be assessed for administration safety. Pt reports he is lonely. This RN offers to have Pt experience staff visit with Pt and Pt states he would like that. Pt Experience staff contact via [employer] will come to Pts room.
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
--- NOTE | 2025-01-01 16:32 | PC.NURSE ---
Noon time Adderall and 3p baclofen given late per Pt request. Pt refused AM meds until late morning and was not comfortable taking afternoon meds until approx 1600. Pt also c/o breakthrough pain and requests medication--ED provider consulted and pain medication to be entered; will dispense once ordered. MARGARET Chapman on unit to visit at bedside.
[2025-01-01] MEDS: oxyCODONE HCl Immed Release 5 MG TABLET 10 MG PO (17:40)
[2025-01-01] MEDS: Morphine Sulfate ER 15 MG TABLET.ER 45 MG PO (21:57)
[2025-01-01] MEDS: clonazePAM 1 MG TABLET PO (21:58)
[2025-01-02] MEDS: oxyCODONE HCl Immed Release 5 MG TABLET 10 MG PO ×2 (02:14→19:58)
--- NOTE | 2025-01-02 02:29 | PC.NURSE ---
Pt ended up having an outburst after being frustrated about given his PRN oxycodone Nurse did educated pt that since medication wasn't scheduled it would have to be asked for after speaking with patient and understanding his frustration. Pt seemed to be more at ease. Nurse did note to pass on in report oncoming nurse to offer medication to pt even if pt was sleeping. Plan of care continuing
[2025-01-02] MEDS: hydrOXYzine HCL 25 MG TABLET PO ×2 (03:29→14:05)
[2025-01-02 06:41] VITALS: BP 134/78; PULSE 63; RESP 16; TEMP 36.6; O2SAT 98
[2025-01-02] MEDS: Acetaminophen 325 MG TABLET 650 MG PO (07:56)
[2025-01-02] MEDS: Sennosides 8.6 MG TABLET 17.2 MG PO (07:57)
[2025-01-02] MEDS: Aspirin Enteric Coated 81 MG TABLET.DR PO (07:58)
[2025-01-02] MEDS: Amphetamine Mixed Salts 10 MG TABLET PO ×2 (07:59→14:05)
[2025-01-02] MEDS: Loratadine 10 MG TABLET PO (07:59)
[2025-01-02] MEDS: Nitrofurantoin Monohyd/M-Cryst 100 MG CAPSULE PO ×2 (07:59→22:00)
[2025-01-02] MEDS: Tamsulosin HCL 0.4 MG CAPSULE PO (07:59)
[2025-01-02] MEDS: Baclofen 10 MG TABLET 5 MG PO ×3 (08:00→22:00)
[2025-01-02] MEDS: Famotidine 20 MG TABLET PO (08:01)
[2025-01-02] MEDS: Metoprolol Tartrate 25 MG TABLET PO ×2 (08:01→22:07)
[2025-01-02] MEDS: Morphine Sulfate ER 15 MG TABLET.ER PO (08:02)
--- NOTE | 2025-01-02 09:45 | MHC.CM.PN ---
Addendum entered by Aga Uribe 01/02/25 16:17: MESSAGE LEFT FOR ALEXANDRA INFORMING HIM OF DC PLAN/TIME Addendum entered by Aga Uribe 01/02/25 16:15: CM INFORMED PT HE IS CLEARED TO DC TO SNF HE REPORTS HE CANNOT DO ANYTHING WITHOUT NOTICE, HE ALSO NOTES HE NEEDS TO TELL FAMILY AND HAVE THEM COME IN TO SAY GOODBYE PER DISCUSSION, PT WILL DC TO [facility] TOMORROW PT ALSO ASKS THAT CM CALL ALEXANDRA AT [facility] AND INFORM HIM OF DCP Addendum entered by Aga Uribe 01/02/25 14:39: RORO ALEXA CALLED FROM [facility], THEY HAVE APPROVAL FOR PT TO GO TO SNF AND WILL CALL TO NOTIFY [facility] Addendum entered by Aga Uribe 01/02/25 13:44: PT COMPLETED A NEW HCP NAMING ALEXANDRA FALCON AND PTS PARTNER, DALLAS PRASAD (JUSTUS) HIS AGENTS. HE AGAIN REITERATES, HE DOES NOT WANT INFORMATION SHARED WITH HIS MOTHER, HERVE ALCALA Original Note: CM MET WITH PT AT HIS REQUEST, PT STATES HIS MOTHER AND PARTNER WERE HIS HCP AGENTS, HOWEVER HIS MOTHER WENT AGAINST HIS WISHES. HE REPORTS HE WANTS TO CHANGE THE HCP AND NAME ALEXANDRA FALCON [phone] HIS AGENT HE WILL CONSIDER ADDING HIS PARTNER AN ALTERNATE, HOWEVER STATES HIS PARTNER IS UNSTABLE AT THIS TIME PT REPORTS HE DOES NOT WANT INFORMATION SHARED WITH HIS MOTHER AT THIS TIME
--- NOTE | 2025-01-02 10:37 | HO.ANESPROP2 ---
HPI - Anesthesia Eval Consult details Narrative: For tracheostomy change PMFSH Active Problems Active Problems: All Active Problems Tracheal stenosis (Acute) Tracheostomy dependence (Acute) Inadequate housing (Acute) Urinary tract infection (Acute) Anxiety (Acute) Past Medical History Medical History (Updated 01/01/25 @ 14:14 by Flavio Wiseman MD) Tracheal stenosis Tracheostomy dependence Autism Chronic post-traumatic stress disorder (PTSD) Family History Family history of problems with anesthesia: No Surgical History History of Problems with Anesthesia: No Social History Social History Alcohol intake: never Patient Tobacco Use Status: Never used Tobacco Second Hand Smoke Exposure: No Meds Allergies Allergy/AdvReac Type Severity Reaction Status Date / Time aripiprazole [From Abilify] Allergy Hallucinati Verified 12/29/24 21:28 ons dog dander [dogs] Allergy Unknown Verified 12/29/24 21:28 mite-Dermatophagoides Allergy Unknown Verified 12/29/24 21:28 farinae, carmen [dust mite - [place]] chlorpromazine AdvReac Hallucinati Verified 12/29/24 21:28 [From Thorazine] ons Active Medications: Current Medications Acetaminophen (Acetaminophen 325 Mg Tablet) 650 mg PO Q6H PRN PRN Reason: Pain, Mild (Pain Scale 1-3) Last Admin: 01/02/25 07:56 Dose: 650 mg Amphetamine/Dextroamphetamine (Amphetamine Mixed Salts 10 Mg Tablet) 10 mg PO BID@0800,1200 [facility] Last Admin: 01/02/25 07:59 Dose: 10 mg Aspirin (Aspirin Enteric Coated 81 Mg Tablet.Dr) 81 mg PO DAILY [facility] Last Admin: 01/02/25 07:58 Dose: 81 mg Baclofen (Baclofen 10 Mg Tablet) 5 mg PO TID [facility] Last Admin: 01/02/25 08:00 Dose: 5 mg Clonazepam (Clonazepam 1 Mg Tablet) 1 mg PO BEDTIME [facility] Last Admin: 01/01/25 21:58 Dose: 1 mg Famotidine (Famotidine 20 Mg Tablet) 20 mg PO DAILY [facility] Last Admin: 01/02/25 08:01 Dose: 20 mg Hydroxyzine HCl (Hydroxyzine Hcl 25 Mg Tablet) 25 mg PO Q6H PRN PRN Reason: anxiety Last Admin: 01/02/25 03:29 Dose: 25 mg Loratadine (Loratadine 10 Mg Tablet) 10 mg PO DAILY [facility] Last Admin: 01/02/25 07:59 Dose: 10 mg Melatonin (Melatonin 3 Mg Tablet) 3 mg PO BEDTIME PRN PRN Reason: insomnia Metoprolol Tartrate (Metoprolol Tartrate 25 Mg Tablet) 25 mg PO BID [facility]; Protocol Last Admin: 01/02/25 08:01 Dose: 25 mg Morphine Sulfate (Morphine Sulfate Er 15 Mg Tablet.Er) 45 mg PO BEDTIME [facility] Last Admin: 01/01/25 21:57 Dose: 45 mg Morphine Sulfate (Morphine Sulfate Er 15 Mg Tablet.Er) 15 mg PO DAILY [facility] Last Admin: 01/02/25 08:02 Dose: 15 mg Naloxone HCl (Naloxone Hcl Nasal 4 Mg [place]) 4 mg NOSTRILALT ONCE PRN PRN Reason: Opiate Reversal Nitrofurantoin Macrocrystals (Nitrofurantoin Monohyd/M-Cryst 100 Mg Capsule) 100 mg PO BID [facility] Stop: 01/08/25 09:29 Last Admin: 01/02/25 07:59 Dose: 100 mg Ondansetron HCl (Ondansetron Odt 4 Mg Tab.Rapdis) 4 mg TRANSLINGU Q8H PRN PRN Reason: nausea/vomiting Oxycodone HCl (Oxycodone Hcl Immed Release 5 Mg Tablet) 10 mg PO Q6H PRN PRN Reason: Pain, Moderate(Pain Scale 4-6) Last Admin: 01/02/25 02:14 Dose: 10 mg Polyethylene Glycol (Polyethylene Glycol 3350 17 Gm Powd.Pack) 17 gm PO DAILY PRN PRN Reason: Constipation Senna (Sennosides 8.6 Mg Tablet) 17.2 mg PO DAILY [facility] Last Admin: 01/02/25 07:57 Dose: 17.2 mg Tamsulosin HCl (Tamsulosin Hcl 0.4 Mg Capsule) 0.4 mg PO DAILY [facility] Last Admin: 01/02/25 07:59 Dose: 0.4 mg Testosterone Cypionate (Testosterone Cypionate 200 Mg/1 Ml Vial) 80 mg IM TU@0900 [facility] Home Medications ?Medication ?Instructions ?Recorded ?Confirmed ?Last Taken ?Type hydroxyzine pamoate 25 mg capsule 1 cap PO Q6H PRN anxiety 09/28/22 12/30/24 Unknown History aspirin 81 mg tablet,delayed 81 mg PO DAILY 12/30/24 12/30/24 Unknown History release baclofen 5 mg tablet 5 mg PO TID Muscle Spasm 12/30/24 12/30/24 Unknown History cefpodoxime 100 mg tablet 100 mg PO Q12H 12/30/24 12/30/24 Unknown History cetirizine 10 mg tablet 10 mg PO DAILY 12/30/24 12/30/24 Unknown History clonazepam 1 mg tablet 1 mg PO BEDTIME 12/30/24 12/30/24 Unknown History dextroamphetamine-amphetamine 10 1 tab PO BID@0800,1200 12/30/24 12/30/24 Unknown History mg tablet famotidine 20 mg tablet 20 mg PO DAILY 12/30/24 12/30/24 Unknown History melatonin 3 mg tablet 3 mg PO BEDTIME PRN insomnia 12/30/24 12/30/24 Unknown History metoprolol tartrate 25 mg tablet 25 mg PO BID 12/30/24 12/30/24 Unknown History morphine 15 mg tablet,extended 45 mg PO BEDTIME 12/30/24 12/30/24 Unknown History release morphine 15 mg tablet,extended 15 mg PO DAILY 12/30/24 12/30/24 Unknown History release (MS Contin) naloxone 4 mg/actuation nasal spray 1 spray intranasal NEEDED 12/30/24 12/30/24 Unknown History ondansetron 4 mg disintegrating 4 mg PO Q8H PRN nausea/vomiting 12/30/24 12/30/24 Unknown History tablet polyethylene glycol 3350 17 gram 17 g PO DAILY PRN Constipation 12/30/24 12/30/24 Unknown History oral powder packet (Miralax) sennosides 8.6 mg tablet (senna) 17.2 mg PO DAILY 12/30/24 12/30/24 Unknown History tamsulosin 0.4 mg capsule 0.4 mg PO DAILY 12/30/24 12/30/24 Unknown History testosterone cypionate 200 mg/mL 80 mg IM TU@0900 12/30/24 12/30/24 Unknown History intramuscular oil Exam Height,Weight and Vital Signs: Height 5 ft 3 in Weight 90 kg Last Vital Signs Temp 97.9 F 01/02/25 06:41 Pulse 63 01/02/25 06:41 Resp 16 01/02/25 06:41 BP 134/78 01/02/25 06:41 Pulse Ox 98 01/02/25 06:41 O2 Del Method Room Air 01/02/25 06:41 Pertinent Lab Results Pertinent Lab Results: Laboratory Tests 12/29/24 12/30/24 12/30/24 23:50 00:01 11:40 WBC 7.4 RBC 4.97 Hgb 15.1 Hct 44.1 MCV 88.7 MCH 30.4 MCHC 34.2 RDW 13.1 Plt Count 215 MPV 9.9 Immature Gran % (Auto) 0.1 Neut % (Auto) 52.1 Lymph % (Auto) 31.8 [place] % (Auto) 11.9 H Eos % (Auto) 3.4 Baso % (Auto) 0.7 Lymph # (Auto) 2.4 [place] # (Auto) 0.9 Eos # (Auto) 0.3 Baso # (Auto) 0.1 Abs Immat Gran (auto) 0.01 Absolute Neuts (auto) 3.9 Absolute Nucleated RBC 0.000 Nucleated RBC % (auto) 0.0 Sodium 142 Potassium 3.9 Chloride 109 H Carbon Dioxide 23 Anion Gap 14 BUN 18 H Creatinine 0.81 Estim Creat Clear Calc 138.3 Estimated GFR > 60 Random Glucose 84 Calcium 9.0 Total Bilirubin 0.7 AST 33 ALT 46 H Alkaline Phosphatase 52 Total Protein 6.8 Albumin 3.9 Urine Color Yellow Urine Appearance Clear Urine pH 6.5 Ur Specific [place] 1.015 Urine Protein 30 (1+) H Urine Glucose (UA) Negative Urine Ketones 15 Urine Blood Negative Urine Nitrite Negative Ur Leukocyte Esterase Large (3+) H Urine RBC 0-2 Urine WBC >50 H Ur Squamous Epith Cells 0-2 Urine Bacteria 3+ Hyaline Casts 0-2 Urine Opiates Screen POSITIVE H Ur Buprenorphine Scrn Not Detected Ur Oxycodone Screen Positive H Urine Methadone Screen Not Detected Urine Fentanyl Screen Not Detected Ur Barbiturates Screen Not Detected Ur Phencyclidine Scrn Not Detected Ur Amphetamines Screen POSITIVE H U Benzodiazepines Scrn Not Detected Urine Cocaine Screen Not Detected U Marijuana (THC) Screen POSITIVE H Ethyl Alcohol < 10 Influenza Type A (PCR) NEGATIVE Influenza Type B (PCR) NEGATIVE RSV RNA Qual (PCR) NEGATIVE SARS-CoV-2 RNA (RT-PCR) NEGATIVE Airway Mallampati Class: II TM Dist: <=3cm Neck ROM: Full Loose/Missing/Broken Teeth: No Heart: ok Lungs: ok Assessment and Plan Assessment Anesthesia Assessment: Anesthesia Plan Discussed and Chart Reviewed Final Anesthetic Review Family History of Problems with Anesthesia: No History of Problems with Anesthesia: No NPO: Yes ASA Class: III Final Preanesthetic Review: No Changes in Pt Med Stat, Meds/Allgs Chart Reviewed, Consent Obtained/Reviewed and Anes Risks/Benef Reviewed Patient Risk: Intermediate Procedure Risk: Intermediate Anesthetic Plan Anesthetic Plan: Agree w/ Assess. and Plan and TIVA Disposition: Standard PACU
--- NOTE | 2025-01-02 11:23 | PC.NURSE ---
Patient just left to get trach changed to OR. iv right hand 20g. report given to RN.
[2025-01-02 11:26] VITALS: BP 109/59; PULSE 67; RESP 16; TEMP 36.8; O2SAT 96
--- NOTE | 2025-01-02 11:26 | MHC.SHP ---
Pre-Procedural Eval Section A - 24 Hr Update-Section A only Date of Service: 01/02/25 The patient is an INPATIENT: Yes Section B - Complete if H&P > 30 days Chief Complaint: NEEDS ASSISTANCE? PER EMS Allergies: Allergies Allergy/AdvReac Type Severity Reaction Status Date / Time aripiprazole [From Abilify] Allergy Hallucinati Verified 12/29/24 21:28 ons dog dander [dogs] Allergy Unknown Verified 12/29/24 21:28 mite-Dermatophagoides Allergy Unknown Verified 12/29/24 21:28 farinae, carmen [dust mite - [place]] chlorpromazine AdvReac Hallucinati Verified 12/29/24 21:28 [From Thorazine] ons Plan I have reviewed the history and physical and performed a pertinent physical examination on my patient. No changes have occurred unless specified. Time Spent With Patient Time: Total time managing care of this patient today ____ minutes.
[2025-01-02 12:19] VITALS: BP 87/46; PULSE 64; RESP 17; TEMP 36.2; O2SAT 94
--- NOTE | 2025-01-02 12:25 | P.BOP_ITS ---
Brief Operative Note Date of Service: 01/02/25 Pre-op diagnosis: Tracheostomy dependent, Tracheal stenosis Post-op diagnosis: same Procedure: Tracheostomy change 8U85H Surgeon: Flavio Wiseman MD Anesthesia: MAC Was an Sales Apprentice used for this Procedure?: No Estimated blood loss (mL): 0 Condition: stable Disposition: floor
[2025-01-02 12:29] VITALS: BP 94/51; PULSE 69; RESP 16; TEMP 36.1; O2SAT 96
--- NOTE | 2025-01-02 13:35 | PC.NURSE ---
Patient just got
--- NOTE | 2025-01-02 14:40 | PC.NURSE ---
Patient came back from OR for trach change started to escalate and state if they don't change this trach I am going to pull it out and then we will have a code blue . Dr. Wiseman notified and came to see patient changed inner cannula and patient calmed down. Patient now requesting someone to sit with him. Called Dakotah the Balancing Machine Operator because he requested that he got called to come back.
--- NOTE | 2025-01-02 15:08 | MHC.CLN ---
NUTRITION PDA ADVISED THAT PATIENT LIKES ENSURE IF DOES NOT EAT WELL. WAS NPO PRIOR TO PROCEDURE TODAY. BMI=35.1, OBESE. NURSING MAY OFFER ENSURE SUPPLEMENT IF POOR PO.
--- NOTE | 2025-01-02 19:51 | PC.NURSE ---
pt requesting pain medication d/t pain for the trach procedure earlier, very agitated and restless. stating that he ask been asking for hours for meds and a diner menu. this RN explained the meal process and medicated with PRN medication
[2025-01-02 21:42] VITALS: BP 107/62; PULSE 88; RESP 18; TEMP 37.1; O2SAT 96
--- NOTE | 2025-01-02 21:45 | MHC.EDTECH ---
Pt had a BM clean up and change for bed
--- NOTE | 2025-01-02 21:56 | PC.NURSE ---
assist to commode for BM. assist into pjs, food provided. pt calm and cooperative at this time
[2025-01-02] MEDS: clonazePAM 1 MG TABLET PO (22:00)
[2025-01-02] MEDS: Morphine Sulfate ER 15 MG TABLET.ER 45 MG PO (22:00)
--- NOTE | 2025-01-02 23:44 | OP_ITS ---
DATE OF SERVICE: 01/02/2025 SURGEON: Flavio Wiseman MD PREOPERATIVE DIAGNOSIS: POSTOPERATIVE DIAGNOSIS: PROCEDURE PERFORMED: Tracheostomy change with a [place] 8U85H tracheostomy. ESTIMATED BLOOD LOSS: COMPLICATIONS: None. ANESTHESIA: MAC. ASSISTANTS: SPECIMENS: ASA: 3. PREOPERATIVE DIAGNOSES: Tracheal stenosis and tracheal dependent. POSTOPERATIVE DIAGNOSES: Tracheal stenosis and tracheal dependent. DESCRIPTION OF PROCEDURE: Patient was sedated with propofol. Vital signs were stable. The tracheostomy that he had in place was evaluated. HME removed. It was indeed an 8.5 inner diameter tracheostomy. It was confirmed. The inner cannula was removed. It was then unsecured and quickly changed out with the same tracheostomy. The patient tolerated it well. No evidence of any resistance at the point. It signifies stoma and he would not have any difficulties changing at the bedside. Once the new tracheostomy was in place, it was then secured. Inner cannula was placed and the HME was placed back, and the patient tolerated procedure well. MD BRENNAN Jiang/GIULIANA / [phone]
--- NOTE | 2025-01-02 23:52 | MHC.EDTECH ---
patient calm, alert and oriented. rang call bertrand at at [phone] requesting water to paint. supplies provided
[2025-01-03] MEDS: hydrOXYzine HCL 25 MG TABLET PO (00:29)
--- NOTE | 2025-01-03 00:36 | PC.NURSE ---
pt reports his mother called him and was mad at him. pt feeling upset and anxious. pt medicated per MAR for anxiety. assist pt with getting comfortable in bed, lights off, call bertrand w/in reach
--- NOTE | 2025-01-03 03:57 | PC.NURSE ---
pt c/o R arm immobility and tingling. pt states this has happened in the past and lead to other issues like difficulty swallowing and generalized weakness. states he has a neurological disorder. neuros are intact beside pt being able to move R arm, feeling and pulse are present. provider Angela CHIN made aware of pt's complaint. provider at bedside for assessment.
--- NOTE | 2025-01-03 08:52 | MHC.EDTECH ---
Breakfast provided to patient. Patient requesting new breakfast tray due to moraes and sausage on plate touching the Spanish toast. New breakfast tray ordered with request of only Spanish toast per patient request. Call bertrand placed within reach. Safety measures in place.
--- NOTE | 2025-01-03 08:57 | MHC.CM.ED ---
Patient remains in ER overflow. BLS transport to [facility] booked for 130pm. Patient, Yvette YOU and Henny CHIN aware. Voicemail left for patient's [facility] Chip Tester, Ari via telephone at [phone] with d/c info provided. Continue to monitor for d/c needs.
[2025-01-03 09:03] VITALS: BP 132/52; PULSE 69; RESP 16; TEMP 36.7; O2SAT 99
[2025-01-03] MEDS: Aspirin Enteric Coated 81 MG TABLET.DR PO (09:05)
[2025-01-03] MEDS: Baclofen 10 MG TABLET 5 MG PO ×2 (09:05→14:33)
[2025-01-03] MEDS: Amphetamine Mixed Salts 10 MG TABLET PO (09:05)
[2025-01-03] MEDS: Sennosides 8.6 MG TABLET 17.2 MG PO (09:06)
[2025-01-03] MEDS: Famotidine 20 MG TABLET PO (09:08)
[2025-01-03] MEDS: Metoprolol Tartrate 25 MG TABLET PO (09:09)
[2025-01-03] MEDS: Tamsulosin HCL 0.4 MG CAPSULE PO (09:09)
[2025-01-03] MEDS: Nitrofurantoin Monohyd/M-Cryst 100 MG CAPSULE PO (09:09)
[2025-01-03] MEDS: Loratadine 10 MG TABLET PO (09:11)
[2025-01-03] MEDS: Morphine Sulfate ER 15 MG TABLET.ER PO (09:14)
--- NOTE | 2025-01-03 09:21 | MHC.EDTECH ---
Patient assisted onto commode w/ one person assist by this PCT. Patient requesting privacy after safe assist to commode to attempt to have a bowel movement. Call bertrand placed within reach. Safety measures in place. Verbal confirmation from patient that he will press call light button to notify RN/PCT for assistance when he is done using the commode.
[2025-01-03] MEDS: oxyCODONE HCl Immed Release 5 MG TABLET 10 MG PO ×2 (09:34→14:31)
--- NOTE | 2025-01-03 09:38 | MHC.EDTECH ---
Patient assisted safely back into bed. Call light placed within reach. Safety measures in place.
[2025-01-03 14:45] VITALS: BP 124/80; PULSE 0; RESP 16; TEMP -17.7; TEMP 0
== END 2025-01-03 14:48 ==
LOC: HO.ED 01-02 10:43 → HO.SSS 01-03 08:56 → HO.EDOVER 01-03 10:01 → HO.ED 01-03 10:55
PROVIDERS: Hospitalist; Physician Assistant Medical; Emergency Provider Emergency Medicine Emergency Medical Services; PCP Nurse Practitioner Adult Health
PROC: (CPT 31899; principal; 2025-01-02 12:00)
DX: F41.1 Generalized anxiety disorder (principal); N39.0 Urinary tract infection, site not specified; B95.2 Enterococcus as the cause of diseases classified elsewhere; J39.8 Other specified diseases of upper respiratory tract; Z43.0 Encounter for attention to tracheostomy; Z72.89 Other problems related to lifestyle; Z59.19 Other inadequate housing; F64.0 Transsexualism; Z79.890 Hormone replacement therapy; F84.0 Autistic disorder; F43.12 Post-traumatic stress disorder, chronic; F41.9 Anxiety disorder, unspecified; F12.90 Cannabis use, unspecified, uncomplicated; Z79.899 Other long term (current) drug therapy; Z03.818 Encounter for observation for suspected exposure to other biological agents ruled out
CPT/HCPCS: 31899; 0241U; 36415; 80053; 80307; 81001; 85025; 87086; 87088; 87186; 97162; 99285; J2003; J2704; J3010

== ENCOUNTER → 2025-01-01 11:27 | Outpatient (BNV) | payer MEDICARE, MEDICAID, SELFPAY | PROVIDERS: Emergency Provider Emergency Medicine Emergency Medical Services; PCP Nurse Practitioner Adult Health; Visit Provider Hospitalist | DX: Z93.0 Tracheostomy status (principal); J39.8 Other specified diseases of upper respiratory tract | CPT/HCPCS: 99223 ==

== ENCOUNTER 2025-06-21 05:31 | Emergency (ER) | payer MEDICARE, MEDICAID, SELFPAY ==
--- NOTE | 2025-06-21 | ECG_ITS ---
Test Reason : ACCIDENTAL OVERDOSE Blood Pressure : */* mmHG Vent. Rate : 79 BPM Atrial Rate : 79 BPM P-R Int : 150 ms QRS Dur : 108 ms QT Int : 370 ms P-R-T Axes : 34 -12 37 degrees QTcB Int : 424 ms Normal sinus rhythm Minimal voltage criteria for LVH, may be normal variant ( R in aVL ) Borderline ECG No previous ECGs available Referred By: Hermilo Camarena Electronically Signed By: BLAS CEE MD
[2025-06-21 05:34] VITALS: BP 98/58; PULSE 79; O2SAT 97
[2025-06-21 05:41] VITALS: BMI 34.6
--- NOTE | 2025-06-21 05:56 | ED.GENADULT ---
HPI - General Adult General Chief complaint: General Medical Stated complaint: took medication twice Time Seen by Provider: 06/21/25 05:55 Source: patient Mode of arrival: EMS Limitations: no limitations History of Present Illness ED Provider: Dr. Hermilo Camarena HPI narrative: 25-year-old male with a history of autism, tracheal stenosis/tracheostomy dependent, autism, PTSD who presents emergency department for evaluation of accidental overdose of his medications. Patient states that he accidentally took his nighttime medicines twice last night between 19:00 and 21:00. Patient took morphine, oxycodone, metoprolol, Klonopin, baclofen and an antibiotic. The patient told me that on the weekends he has his medications and he forgot to take his Sunday medications and last night he took both his Sunday and Sunday medications. He believes the confusion occurred cause he smoked ?weed? with his brother. The patient states he did not feel well and called an ambulance and he was seen at [facility]. He was observed for 2 hours and discharged home. Patient states that he was upset that [facility] did not do blood work on him yesterday and that they did not keep him in the hospital. He states that this morning he still does not feel well. He states that he believes that his mind is not working well because of the medications that he took. He initially told me that he was not suicidal and that he wanted blood work and he wanted to be hospitalized because he was not well. After I examined him and told him that we did not need to do blood work or keep him in the hospital for further observation, he became very upset. He told me that his mind is not working and he feels like he is unsafe. He kept repeating that he feel unsafe and he kept repeating that I was not listening to him. He then changed his story and told me that he took 6 times the amount of oxycodone and methadone that he was supposed to take. He told me this was not intentional, but it was accidental and this has the reason why mind was not working. I told him that we did not have to worry about this since he is on these medications chronically and he has no lethargy or respiratory distress. At this point he again became very agitated and upset in his requesting evaluation by our care team. At this time I do not think that he needs blood work to be medically cleared and I will obtain a care team consult. Related Data Home Medications ?Medication ?Instructions ?Recorded ?Confirmed hydroxyzine pamoate 25 mg capsule 1 cap PO Q6H PRN anxiety 09/28/22 12/30/24 aspirin 81 mg tablet,delayed 81 mg PO DAILY 12/30/24 12/30/24 release baclofen 5 mg tablet 5 mg PO TID Muscle Spasm 12/30/24 12/30/24 cefpodoxime 100 mg tablet 100 mg PO Q12H 12/30/24 12/30/24 cetirizine 10 mg tablet 10 mg PO DAILY 12/30/24 12/30/24 clonazepam 1 mg tablet 1 mg PO BEDTIME 12/30/24 12/30/24 dextroamphetamine-amphetamine 10 1 tab PO BID@0800,1200 12/30/24 06/21/25 mg tablet famotidine 20 mg tablet 20 mg PO DAILY 12/30/24 12/30/24 melatonin 3 mg tablet 3 mg PO BEDTIME PRN insomnia 12/30/24 12/30/24 metoprolol tartrate 25 mg tablet 25 mg PO BID 12/30/24 12/30/24 morphine 15 mg tablet,extended 45 mg PO BEDTIME 12/30/24 12/30/24 release morphine 15 mg tablet,extended 15 mg PO DAILY 12/30/24 12/30/24 release (MS Contin) naloxone 4 mg/actuation nasal spray 1 spray intranasal NEEDED 12/30/24 12/30/24 ondansetron 4 mg disintegrating 4 mg PO Q8H PRN nausea/vomiting 12/30/24 12/30/24 tablet polyethylene glycol 3350 17 gram 17 g PO DAILY PRN Constipation 12/30/24 12/30/24 oral powder packet (Miralax) sennosides 8.6 mg tablet (senna) 17.2 mg PO DAILY 12/30/24 12/30/24 tamsulosin 0.4 mg capsule 0.4 mg PO DAILY 12/30/24 12/30/24 testosterone cypionate 200 mg/mL 80 mg IM TU@0900 12/30/24 12/30/24 intramuscular oil Previous Rx's ?Medication ?Instructions ?Recorded morphine 15 mg tablet,extended 15 mg PO ONCE 3 days #3 tabs 01/03/25 release (MS Contin) morphine 30 mg tablet,extended 45 mg (1.5 x 30 mg) PO .QHS 3 days 01/03/25 release (MS Contin) #6 tabs nitrofurantoin 100 mg PO BID #11 caps 01/03/25 monohydrate/macrocrystals 100 mg capsule (Macrobid) oxycodone 10 mg tablet 10 mg PO Q6H PRN severe pain 01/03/25 (scale score 7-10) 3 days #12 tabs Allergies Allergy/AdvReac Type Severity Reaction Status Date / Time aripiprazole (From Abilify) Allergy Hallucinati Verified 06/21/25 05:42 ons dog dander (dogs) Allergy Unknown Verified 06/21/25 05:42 mite-Dermatophagoides Allergy Unknown Verified 06/21/25 05:42 farinae, carmen (dust mite - [place]) chlorpromazine (From AdvReac Hallucinati Verified 06/21/25 05:42 Thorazine) ons Review of Systems Review of Systems: Yes all other systems are reviewed and are negative [facility]LY [facility] Past Medical History Medical History (Updated 06/22/25 @ 00:01 by Aviva Bob) Tracheal stenosis Tracheostomy dependence Autism Chronic post-traumatic stress disorder (PTSD) Social History Social History Unable to assess alcohol history related to: Refusing to respond Alcohol intake: never Patient Tobacco Use Status: Never used Tobacco Smoked in Last 30 Days: Yes Second Hand Smoke Exposure: No Use of substances other than those prescribed or required for medical reasons: Refusing to respond Advance Directives: No Advance Directives Information Provided: Yes Physical Exam ED Vital Signs: Vital Signs - 24 hr 06/21/25 06:14 06/21/25 10:00 06/21/25 12:00 Temperature 98.4 F Pulse Rate 84 59 68 Respiratory Rate 18 20 20 Blood Pressure 118/66 Pulse Oximetry 94 97 98 Oxygen Delivery Method Room Air Room Air Room Air BMI result Body Mass Index 34.6 Vital signs were normal Exam: General: Awake, very anxious Head: Normocephalic, atraumatic EENT: PERRL, sclera and conjunctiva are normal, mouth with no erythema or exudates Neck: Tracheostomy Lung: breath sounds symmetric, no wheezing, no rales and no rhonchi Chest: symmetric movement, nontender Heart: regular rate and rhythm, normal S1, S2 no murmurs or rubs Abdomen: soft, non-tender, nondistended, normal bowel sounds Back: no vertebral tenderness, no CVAT Neuro: General: ?Awake, alert, oriented, normal speech Cranial nerves: ?Cranial nerves ?2 through 12 intact Strength: Moves upper extremities without difficulty, atrophied in his symmetric weakness of the lower extremities Cerebellar: ?Good zvpqrc-yb-dpvy-to-finger, good rapid finger movement, normal heel to nolasco Psych: Pleasant, cooperative Medical Decision Making Medical Decision Making MDM Narrative: 25-year-old male with a history of autism, tracheal stenosis/tracheostomy dependent, autism, PTSD who presents emergency department for evaluation of accidental overdose of his medications. Patient took his Sunday and Sunday doses of metoprolol, morphine, oxycodone, clonidine, baclofen) last night between 19:00 and 21:00. He was evaluated at [facility], observe for 2 hours and sent home. He came to [facility] this morning since he was not feeling well. He initially stated that he took his usual doses twice but after my interview he changed his story and said that he took 6 times the amount of oxycodone and methadone accidentally. He attributes this accidental overdose to smoking marijuana. Patient states that he feels unsafe in his requesting a care team consult. He denied being suicidal. Vital signs were normal. Physical examination was consistent with a his baseline. Differential diagnosis: ?Includes but is not limited to suicidal ideation, depression, anxiety, accidental overdose Course: 07:41 At this time I do not think that the patient needs medical observation for his unintentional medication overdose. Also I do not think that the patient needs blood work. If the care team feels that the patient requires inpatient level of car for a psychiatric condition, then I will get blood work on him. 14:02 The patient was being evaluated by the care team clinician. The patient changed his story a 3rd time and told the care team clinician that he fell down 28 stairs, hit his head and was incontinent of stool. I went into the room with the care team clinician and the patient then told me that he is not suicidal and he does not want to be admitted. He states that he wants a medical workup. Given his physical findings, I do not think that he needs a CT scan of his head or imaging of his back. Also, patient has been in the emergency department for multiple hours, I do not think that there is any risk from his reported accidental overdose of his medications. Therefore the patient will be discharged to home with resources from the care team for further outpatient follow-up. Differential Diagnosis Differential Diagnoses: The differential diagnosis associated with the presentation includes (See above) Admission/Observation Consideration of admission/observation: Escalation of care including admission/observation considered (No) Chronic Conditions Patient?s care impacted by: Other (PTSD) Discharge Plan Discharge Clinical Impression: Accidental medication overdose Patient Disposition: Home, Self-Care Additional Instructions: At this time, I do not think that your accidental medication overdose caused any serious harm to you. Continue to take your medications as prescribed by your providers. Follow-up with your doctor in 2 days. Please return to the emergency department if your symptoms get worse or if you develop any symptoms that are concerning to you. Prescriptions: No Action hydroxyzine pamoate 25 mg capsule 1 cap PO Q6H PRN (Reason: anxiety) cetirizine 10 mg tablet 10 mg PO DAILY clonazepam 1 mg tablet 1 mg PO BEDTIME tamsulosin 0.4 mg capsule 0.4 mg PO DAILY morphine [MS Contin] 15 mg tablet extended release 15 mg PO DAILY sennosides [senna] 8.6 mg tablet 17.2 mg PO DAILY polyethylene glycol 3350 [Miralax] 17 gram Powder In Packet 17 g PO DAILY PRN (Reason: Constipation) cefpodoxime 100 mg tablet 100 mg PO Q12H dextroamphetamine-amphetamine 10 mg tablet 1 tab PO BID@0800,1200 melatonin 3 mg tablet 3 mg PO BEDTIME PRN (Reason: insomnia) aspirin 81 mg tablet,delayed release (DR/EC) 81 mg PO DAILY famotidine 20 mg tablet 20 mg PO DAILY morphine 15 mg tablet extended release 45 mg PO BEDTIME testosterone cypionate 200 mg/mL oil 80 mg IM TU@0900 ondansetron 4 mg tablet,disintegrating 4 mg PO Q8H PRN (Reason: nausea/vomiting) metoprolol tartrate 25 mg tablet 25 mg PO BID naloxone 4 mg/actuation spray,non-aerosol 1 spray intranasal NEEDED baclofen 5 mg Tablet 5 mg PO TID morphine [MS Contin] 15 mg tablet extended release 15 mg PO ONCE 3 Days Qty: 3 0RF Rx Instructions: Partial Fill upon patient request. morphine [MS Contin] 30 mg tablet extended release 45 mg PO .QHS 3 Days Qty: 6 0RF Rx Instructions: Partial Fill upon patient request. nitrofurantoin monohyd/m-cryst [Macrobid] 100 mg capsule 100 mg PO BID Qty: 11 0RF Rx Instructions: must administer with a meal/food oxycodone 10 mg tablet 10 mg PO Q6H PRN (Reason: severe pain (scale score 7-10)) 3 Days Qty: 12 0RF Rx Instructions: Partial Fill upon patient request. Discharge Date/Time: 06/21/25 16:47 Print Language: Slovak
[2025-06-21 06:14] VITALS: BP 118/66; PULSE 84; RESP 18; TEMP 36.9; O2SAT 94
--- OUTSIDE RECORDS SUMMARY | 2025-06-21 06:15 | XMS_ITS | Encounter Summary ---
Author Organization [facility] Address [address] [place] [address] Phone Care Team Providers Care Metal Control Coordinator Name Role Phone Eda Bowens NP Primary Care Pro vider Pcp, Unknown Primary Care Provider Unavailabl e Eda Bowens NP Unavailable Encounter Details Date Type Department Care Team (Late st Contact Info) Description 03/27/2023 Procedure Pass [facility] PERIOPERATIVE DEPT [address] [place] [address] Social History Tobacco Use Types Packs/Day Years Used Date Smoking Tobacco: Former Cigarettes Q uit: 03/2021 Smokeless Tobacco: Never Comments:Pt quit in 05/2021 Alcohol Use Standard Drinks/Week Comments Yes 0 (1 standard drink = 0.6 oz pur e alcohol) couple xmonthly 1-2 drinks Education Answer Date Recorded Are you interested in more education? Not on mark e 12/21/2022 Are you concerned about learning? Not on file 12/21/2022 No 12/21/2022 No 12/21/2022 Digital Access Answer Date Recorded No 01/22/2023 No 01/22/2023 Reliable internet access at home? Not on file 01/22/2023 Device with a working camera? Not on file Intimate Partner Violence Answer Date R ecorded Are you denied basic needs s uch as food, clothing, or medical care? No 03/29/2023 In the past 12 months have y ou been in a relationship with a person who hurts, threatens, or tries to control you? No 03/29/2023 Are you denied basic needs s uch as food, clothing, or medical care? No 03/29/2023 In the past 12 months have y ou been in a relationship with a person who hurts, threatens, or tries to control you? No 03/29/2023 Education Answer Date Recorded What is the highest level of school you have completed or the highest degree you have received? Some college, no degree 10/21/2021 Comments No Sex and Gender Information Value Date Recorded Sex Assigned at Female 09/18/2018 3:59 PM EST Legal Sex Male 7:29 PM EST Gender Identity Male 09/18/2018 3:59 PM EST Sexual Orientation Lesbian or Park 12/22/2024 11 :13 AM EDT Sexual Orientation Queer 12/22/2024 11 :13 AM EDT documented as of this encounter Functional Status * [place] Suicide Severity Rating Scale (Screener/Recent Self-Report) Question Answer Date of Assessment Author 1. Wish to be (Past 1 Month) No 03/29/2023 7:00 PM EDT Lisa Dodge RN 2. Non-Specific Active Suicidal Thoughts (Past 1 Month) No 03/29/2023 7:00 PM EDT Lisa Dodge, KENYATTA Calculated C-SSRS Risk Score (Lifetime/Recent) Moderate Risk 03/29/2023 7:00 PM EDT Cristofer Dodge RN 6. Suicidal Behavior (Lifetime) Yes 03/29/2023 7:00 PM EDT Lisa Dodge, KENYATTA documented as of this encounter Plan of Treatment Upcoming Encounters Date Type Department Care Team (Late st Contact Info) Description 10/30/2025 12:20 PM EST Office Visit [facility] [address] [place] [address] 3rd Floor, [address] [place] [address] Varinder Rivas MD [address] [place] [address], [address] [place] [address] 12/07/2025 9:30 AM EDT Office Visit [facility] Department of Neurology [address] [place] [address], 8th Floor, [address] [place] [address] Eda Acosta MD [address] [place] [address] [address] [place] [address] [email or web address] documented as of this encounter Visit Diagnoses Not on filedocumented in this encounter Additional Health Concerns Assessment Noted Time PHQ-2 Depression Total Score: 2 10/21/19 22 2:30 PM EST documented as of this encounter Care Teams Metal Control Coordinator Relationship Specialty Start Date End Date Eda Bowens NP [address] [place] [phone] [email or web address] PCP - General Nurse Practitioner 09/18/2211/26 Pcp, Unknown PCP - General 12/19/24 Eda Bowens NP [address] [place] [phone] [email or web address] Nurse Practitioner 12/19/24 documented as of this encounter Additional Source Comments The information contained in this document represents components of the legal health record. It is not the complete legal health record.[facility]
--- OUTSIDE RECORDS SUMMARY | 2025-06-21 06:15 | XMS_ITS | Encounter Summary ---
Author Organization [facility] Address [address] [place] [address] Phone Care Team Providers Care Maternity Nurse Name Role Phone Unknown, Unknown Primary Care Provider Sarah Lara MD Primary Care Provider [phone] Sarah Kramer MD Primary Care Provider Irina Everett MD Primary Care Provider Eda Bowens NP Primary Care Pro vider Theresa Castellon MD Primary Care Provider Pcp, Unknown Primary Care Provider Unavailabl Eda Vasquez NP Primary Care Pro vider Pcp, Unknown Primary Care Provider Unavailabl Eda Vasquez NP Unavailable Anneliese MendezW Unavailable segundo Lauren Garcia DO Unavailable [phone] Ramona Scott MD Unavailable [phone] Lauren Garcia DO Unavailable [phone] Encounter Details Date Type Department Care Team (Late st Contact Info) Description 03/13/2019 Procedure Pass [facility] - Main [address] [address] Social History Tobacco Use Types Packs/Day Years Used Date Smoking Tobacco: Never Smokeless Tobacco: Never Alcohol Use Standard Drinks/Week Comments No 0 (1 standard drink = 0.6 oz pur e alcohol) Comments Unknown Sex and Gender Information Value Date Recorded Sex Assigned at Female 09/18/2018 3:59 PM EST Legal Sex Male 7:29 PM EST Gender Identity Male 09/18/2018 3:59 PM EST Sexual Orientation Lesbian or Park 12/22/2024 11 :13 AM EDT Sexual Orientation Queer 12/22/2024 11 :13 AM EDT documented as of this encounter Plan of Treatment Upcoming Encounters Date Type Department Care Team (Late st Contact Info) Description 10/30/2025 12:20 PM EST Office Visit [facility] [address] [place] [address] 3rd Floor, [address] [place] [address] Varinder Rivas MD [address] [place] [address], [address] [place] [phone] [email or web address] 12/07/2025 9:30 AM EDT Office Visit [facility] Department of Neurology [address] [place] [address], 8th Floor, [address] [place] [address] Eda Acosta MD [address] [place] [address] [place] [phone] [email or web address] documented as of this encounter Visit Diagnoses Not on filedocumented in this encounter Additional Health Concerns Infection Onset Date Last Indicated Resolved Time CoV-Risk 11/20/2019 11/20/2019 12/04/2019 1:23 AM EDT CoV-Risk Comment:Per note documentation 11/21/2022 11/21/2022 3 11:05 PM EDT CoV-Risk Comment:Per note documentation 12/12/2022 12/12/2022 3 1:07 AM EDT documented as of this encounter Care Teams Maternity Nurse Relationship Specialty Start Date End Date Unknown, Unknown, PCP - General 09/18/18 11/19/19 Sarah rKamer MD [address] [place] [address] PCP - General Internal Medicine 11/20/19 11/22/19 Sarah Kramer MD [address] [place] [address] PCP - General Internal Medicine 12/15/19 01/22/20 Irina Everett MD [address] [place] [address] PCP - General Internal Medicine 01/23/20 07/27/21 Eda Bowens NP [address] [place] [phone] [email or web address] PCP - General Family Medicine 08/26/21 10/19/21 Theresa Castellon MD [address] [place] [phone] [email or web address] PCP - General Family Medicine 10/20/21 07/26/22 Pcp, Unknown PCP - General 07/27/22 09/17/22 Eda Bowens NP [address] [place] [phone] [email or web address] PCP - General Nurse Practitioner 09/18/22 12/18/24 Pcp, Unknown PCP - General 12/19/24 Eda Bowens NP [address] [place] [phone] [email or web address] Nurse Practitioner 12/19/24 Anneliese Mendez, PUBLIC SERVICE DIRECTOR [address] [place] [phone] [email or web address] [facility] 10/20/21 03/14/22 Lauren Garcia DO [address] [place] [address] [place] [address] Insurance Assigned Provider 02/04/22 05/06/22 Ramona Scott MD [address] [place] [address] [place] [address] [email or web address] Assigned Provider 05/06/22 07/02/22 Lauren Garcia DO [address] [place] [address] [place] [address] Insurance Assigned Provider 07/02/22 09/30/22 documented as of this encounter Additional Source Comments The information contained in this document represents components of the legal health record. It is not the complete legal health record.[facility]
--- OUTSIDE RECORDS SUMMARY | 2025-06-21 06:15 | XMS_ITS | Clinical Summary ---
Author Organization [facility] Address [address] [facility] [address] [place] [address] Phone Care Team Providers Care Dietitian Helper Name Role Phone Pcp, Unknown Primary Care Provider Eda Mendieta ROUGE MIXER Unavailable Allergies Active Allergy Reactions Criticality Noted Date Comments Fentanyl 12/01/2022 During admission on 11/20 patient developed rash and fentanyl/oxycodone was D/C'd given it could be causing it. Fluoxetine Mental Status Change High 12/28/2015 Converted from Selective Serotonin Reuptake Inhibitors please confirm with patient Gabapentin 10/20/2021 House Dust Mite Medium 12/03/2020 SWELLING FACE AND THROAT. HIVES Latex, Natural Rubber 08/12/2017 Lorazepam Other (See Comments),Mental Status Change 05/30/2021 psychosis Penicillins Anaphylaxis High 03/23/2023 Prednisone 05/14/2021 Topiramate Anxiety Low 10/20/2021 Trazodone Urinary Retention Medium 05/30/2021 Piperacillin-Tazobact am Rash Low 12/01/2022 During admission on 11/20 patient developed rash and zosyn was D/C'd given it could be causing it. Medications albuterol 2.5 mg /3 mL (0.083 %) nebulizer solution Take 3 mL (2.5 mg total) by nebulization every 4 (four) hours as needed for shortness of breath/dyspnea. 01/03/20 23 Active Additional Information Patient not taking.Reported on 03/27/2023 testosterone cypionate (DEPO-TESTOTERONE) 200 mg/mL injection Inject 0.4 mL (80 mg total) under the skin every 7 days. 01/04/20 Active prazosin (MINIPRESS) 5 MG capsule Take 2 mg by mouth nightly at bedtime. Active metoprolol tartrate (LOPRESSOR) 25 MG tablet Take 25 mg by mouth 2 (two) times a day. Active hydrOXYzine (ATARAX) 25 MG tablet Take 25 mg by mouth 3 (three) times a day as needed for itching. Active ibuprofen (ADVIL,MOTRIN) 600 MG tablet Take 600 mg by mouth every 6 (six) hours as needed for pain (specific location in comments). Active dextran 66-aazzmvzqjpny-mg ycern (ARTIFICIAL TEARS) 0.1-0.3-0.2 % Place 1-2 drops into each eye 4 (four) times a day as needed for other (free text field) (eye irritation). 03/28/20 Active tamsulosin (FLOMAX) 0.4 mg Cap Take 1 capsule (0.4 mg total) by mouth daily for 14 days. 14 capsule 03/29/20 Active OLANZapine (ZYPREXA ZYDIS) 10 MG disintegrating tablet Take 10 mg by mouth nightly at bedtime. 03/28/20 Active oxyCODONE 5 MG immediate release tablet Take 1 tablet (5 mg total) by mouth every 6 (six) hours as needed. Partial fill ok 0 03/28/20 Active dextroamphetamine- amphetamine (ADDERALL) 10 mg Tab tablet Take 1 tablet (10 mg total) by mouth 2 (two) times a day. 0 03/28/20 Active docusate sodium (COLACE) 100 MG capsule Take 1 capsule (100 mg total) by mouth 2 (two) times a day. 03/31/20 Active polyethylene glycol (MIRALAX) 17 gram packet Take 17 g by mouth daily. 04/01/20 Active senna (SENOKOT) 8.6 mg tablet Take 2 tablets by mouth 2 (two) times a day. 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 CTA chest done with no PE but with new groundglass opacities suggestive of acute infectious process He was started on Levaquin and given dose of IV solumedrol and racemic epi. He continues to have increased WOB and faint stridor. The case was d/w ICU and he will be transferred for airway monitoring. If he indeed has pneumonia, could consider broadening abx to treat for HAP. Will hold off on broadening as he is afebrile with a nl WBC cound. Rash 12/28/2022 Assessment & Plan (12/30/2022 11:36 AM EDT): Not classic hives- he thinks its allergy to the detergent in the sheets. Hydroxyzine as needed. UTI (urinary tract infection) 12/19/2022 Assessment & Plan (12/31/2022 1:20 PM EDT): Started empirically on ciprofloxacin on 12/20 for possible UTI. -Blood cultures negative x2 days -Urine cultures negative. Therefore all antibiotics discontinued after 1 dose on 12/20. Major depression, recurrent, chronic 12/01/2022 Acute hypoxemic respiratory failure 11/25/2022 Autism disorder 09/30/2021 Assessment & Plan (12/11/2022 9:41 AM EDT): Easily triggered, difficulty with food textures. Difficulty speaking on the telephone. Bipolar I disorder 01/05/2016 Overview (09/16/2016): Bipolar I disorder Assessment & Plan (12/30/2022 11:32 AM EDT): Bipolar 1 disorder with anxiety and conversion disorder. -Now on olanzapine 10 mg twice daily, Adderall, and Klonopin. -Defer management to the psychiatric team. Chronic post-traumatic stress disorder (PTSD) Overview (09/16/2016): Chronic post-traumatic stress disorder ADHD (attention deficit hyperactivity disorder) 07/28/2007 Overview (12/01/2022): Last Assessment & Plan: -continue home Adderall XR 10mg daily, Adderall 5mg daily Assessment & Plan (12/30/2022 11:33 AM EDT): Home Adderall discontinued in ICU, though now back on it Gender dysphoria in adult Assessment & Plan (12/24/2022 2:26 PM EDT): Transgender male, he/him pronouns. -Continued on testosterone injections weekly. Resolved Problems Problem Noted Date Diagnosed Date Resolved Date Vocal cord dysfunction 12/24/202201/02 Assessment & Plan (12/31/2022 1:21 PM EDT): Initially admitted with overdose and obtundation. Treated with Narcan in the ED. Tox screen was positive for opiates and THC. Patient stabilized and sent to the medicine floor however returned with stridor -ENT evaluation uncovered vocal cord dysfunction. -Patient status post intubation with extubation on 12/17. -Initially Started on ceftriaxone and Flagyl for concern of aspiration PNA. However later that afternoon sputum grew S. aureus and vancomycin was added. -Patient had completed antibiotics and had been off them for multiple days with no recurrent fevers. -Seen by ENT and visualization revealed no anatomic/structural defects. -restarted on home flovent on 12/29. Hypoxemic respiratory failure, chronic 12/24/2022 01/02/2023 Assessment & Plan (12/30/2022 11:35 AM EDT): Patient intubated in ICU with respiratory failure fevers. Tox screen was positive for opiates and THC. CTPA from 11/27 was negative for PE. Patient treated for aspiration pneumonia with full course of antibiotics. Extubated 12/17. Seen by ENT for vocal cord dysfunction. No anatomic/structural defect noted. Hypoxemia resolved. - Continue to monitor O2 sats. Watch for signs of recurrent hypoxia. Acute respiratory failure 12/14/2022 Airway compromise 12/14/2022 12/21/2022 Sore throat 12/11/2022 01/02/2023 Assessment & Plan (01/01/2023 7:29 AM EDT): Severe sore throat, throat feeling tight since extubation. Sensation of swelling inside the throat. Treated in the ICU for aspiration pneumonitis. Required racemic epi mid November. Elevated LFTs 11/28/2022 12/21/2022 Tachycardia 11/28/2022 12/06/2022 Ksvof-Pcyusivkq-Kdihj syndrome 11/28/2022 12/21/2022 Fever 11/27/2022 12/06/2022 Metabolic acidosis 11/25/2022 Toxic metabolic encephalopathy 11/25/2022 12/06/2022 Aspiration pneumonia 11/25/2022 023 Intentional overdose 11/20/2022 023 Assessment & Plan (01/01/2023 12:40 PM EDT): Patient presented on 11/20 with a box of empty pill bottles and a suicide note, claiming to have taken a massive number of pills with the intent to end his life. Was initially not able to give meaningful history, somnolent, hypotensive 80/50. Initially given IV fluids and admitted to the ICU. As of 12/24 medical issues essentially resolved and he was medically cleared for inpatient psychiatric admission. Bed search underway. However on 12/31 he was noted to be tachycardic and tachypneic. CTA chest done and negative for PE but shows findings concerning for an acute infectious process. Will need to follow up with psych re: bed search and need for inpatient psych treatment at this point. - Continue Adderall, Zyprexa, -As needed clonazepam 0.5 mg 2 times daily for panic attacks as needed -Psychiatry consult requested to follow while on the medical floor, [facility] following -ems manager following for bed search. Assessment & Plan (12/10/2022 4:53 PM EDT): Acute medical issues, including aspiration pneumonia, respiratory failure, toxidrome from overdose of multiple medications, have all resolved. Appreciate [facility] involvement with inpatient psychiatric bed search. - Continue olanzapine, Adderall PRN clonazepam - Continue 1:1 monitoring for safety Suicidal ideation 07/27/2022 01/02/2023 Assessment & Plan (12/28/2022 8:49 AM EDT): Psychiatric bed search underway, psychiatry and BHRT to follow. Has come off 1:1 Hypoxia 09/18/2017 09/19/2017 Assessment & Plan (09/18/2017 8:38 PM EST): Continue O2, wean as tolerated incentive spirometry Albuterol PRN Await CXR results Expect resolution by AM and likely discharge Dr Bradley to see in am for follow up , Percocet for pain Drains to be monitored, bandages not to be touched until instructed by Mirna. Anxiety 03/27/2005 01/02/2023 Overview (12/01/2022): Last Assessment & Plan: -continue home Duloxetine 40mg at bedtime, Atarax 50mg at bedtime -Clonazepam 0.5mg daily PRN Assessment & Plan (12/12/2022 9:40 AM EDT): Clonazepam available for anxiety/panic attacks twice daily as needed. Encounters Date Type Department Care Team Description 03/27/2025 Transcribe Orders [facility] [address] Floor, [address] [place] [address] Kaycee Palacios Vfqju-Zawjnimty-Vj ite pattern (Primary Dx) from Last 3 Months Immunizations Immunization Administration Dates Next Due COVID-19 (Pre-06/18) Pfizer Vaccine, mRNA, PF ,12/19/2020 Family History Medical History Relation Comments Neurofibromatosis Father Fibroids Mother Ovarian cysts Mother Uterine cancer Mother Relation Status Comments Brother 1 Alive Brother 2 Alive Brother 3 Alive Father Maternal Grandmother Alive Mother Alive Sister 1 Alive Sister 2 Alive Social History Tobacco Use Types Packs/Day [...] Orientation Queer 12/22/2024 11 :13 AM EDT Last Filed Vital Signs Vital Sign Reading Time Taken Comments Blood Pressure 122/67 03/31/2023 8:27 AM EDT Pulse 106 03/31/2023 8:27 AM EDT Temperature 36.8 C (98.3 F) 03/31/2023 8:27 AM EDT Respiratory Rate 20 03/31/2023 8:27 AM EDT Oxygen Saturation 93% 03/31/2023 8:45 AM EDT Inhaled Oxygen Concentration 21% 03/31/2023 8 :45 AM EDT Weight 93.6 kg (206 lb 5.6 oz) 03/31/2023 7:00 A M EDT Height 154.9 cm (5' 1 ) 03/29/2023 6:18 PM EDT Body Mass Index 38.99 03/29/2023 6:18 PM EDT Plan of Treatment Upcoming Encounters Date Type Department Care Team (Late st Contact Info) Description 10/30/2025 12:20 PM EST Office Visit [facility] [address] [place] [address] 3rd Floor, [address] [place] [address] Varinder Rivas MD [address] [place] [address], [address] [place] [address] [email or web address] 12/07/2025 9:30 AM EDT Office Visit [facility] Department of Neurology [address] [place] [address], 8th Floor, [address] [place] [address] Eda Acosta MD [address] [place] [address] [place] [id number] [email or web address] Health Maintenance Due Date Last Done Comments Adult Td,Tdap Booster 1999 SMOKING Hx and SMOKELESS TOBACCO SCREENING 02/23/2012 HPV VACCINES (1 - 3-dose series) 2014 HIV ONE-TIME SCREENING (18-6 5 YEARS) 2017 DEPRESSION SCREENING 10/21/2022 10/21/2021 INFLUENZA VACCINE (#1) 2025 COVID-19 VACCINE (3 - 2024-2 6 season) 2025 01/09/2021, 12/19/2020 HEPATITIS C SCREENING Completed 09/07/2021 HEPATITIS A VACCINES Aged Out No long er eligible based on patient's age to complete this topic HIB VACCINES Aged Out No longer eligi ble based on patient's age to complete this topic MENINGOCOCCAL VACCINES (ACWY) Aged Out No longer eligible based on patient's age to complete this topic MENINGOCOCCAL VACCINES (B) Aged Out N o longer eligible based on patient's age to complete this topic PNEUMOCOCCAL VACCINES (0-49 years) Aged Out No longer eligible b ased on patient's age to complete this topic Medical Devices Implanted Type Area Eyewear Manufacturing Supervisor Device Identifier Shelf Expiration Date Model / Serial / Lot Tracheostomy-12/26 Implanted:2022 (Quantity not on file) Procedures Procedure Name Priority Date/Time Associated Diagnosis Comments OUTSIDE LAB 04/01/2025 OUTSIDE LAB 04/01/2025 OUTSIDE IMAGING 04/01/2025 from Last 3 Months Results * Outside Imaging Report Only (04/01/2025) us Scanning Interface Provider IMG XR CHEST Alina l Result * Outside Lab (04/01/2025) Only the most recent of2 resultswithin the time period is included. us Scanning Interface Provider LAB BLOOD ORDERABLES Final Result from Last [address] [place] [address] [place] [address] MEDICARE PART A & B [place] [address] [place] [address]HEALTH MEDICARE PART A & [place] [address] [place] [address] [place] [facility] MEDIC[facility] PART A & B Advance Directives For more information, please contact: [phone] (9AM - 5PM [facility], Sunday-Sunday) Documents on File Type Date Recorded Patient Bottling Supervisor Expl anation Healthcare Proxy 11/21/2022 1:01 PM * Full Code (Latest Code Status on File) Date Activated Date Inactivated Comments 03/27/2023 12:13 PM Question Answer Comments Code Status Confirmed With: Patient * Full Code Date Activated Date Inactivated Comments 11/20/2022 1:26 AM 03/27/2023 12:13 PM Question Answer Comments Code Status Confirmed With: Other (specify below ) Code Discussion Comments: presumed * Full Code (Presumed) Date Activated Date Inactivated Comments 09/18/2017 8:57 PM 09/19/2017 12:58 PM * Full Code (Presumed) Date Activated Date Inactivated Comments 09/18/2017 11:27 AM 09/18/2017 8:57 PM Healthcare Agents on File Name Relationship Healthcare Agent Relationshi p Communication Laine Rae Mother .Primary Health Care Agent (Proxy form on file) Care Teams Dietitian Helper Relationship Specialty Start Date End Date Pcp, Unknown PCP - General 12/19/24 Eda Bowens NP [address] [place] [phone] [email or web address] Nurse Practitioner 12/19/24 Additional Source Comments The information contained in this document represents components of the legal health record. It is not the complete legal health record.[facility]
--- OUTSIDE RECORDS SUMMARY | 2025-06-21 06:15 | XMS_ITS | Encounter Summary ---
Author Organization [facility] Address [address] [place] [address] Phone Care Team Providers Care Instant Print Operator Name Role Phone Eda Bowens NP Primary Care Pro vider Pcp, Unknown Primary Care Provider Unavailabl e Eda Bowesn NP Unavailable Encounter Details Date Type Department Care Team (Late st Contact Info) Description 11/27/2022 Procedure Pass [facility], Ct Scan - [address] [address] Social History Tobacco Use Types Packs/Day Years Used Date Smoking Tobacco: Former Cigarettes Q uit: 03/2021 Smokeless Tobacco: Never Comments:Pt quit in 05/2021 Alcohol Use Standard Drinks/Week Comments Never 0 (1 standard drink = 0.6 oz pur e alcohol) couple xmonthly 1-2 drinks Education Answer Date Recorded What is the [...] Description 10/30/2025 12:20 PM EST Office Visit [facility] [address] [facility] 3rd Floor, [address] [place] [address] Varinder Rivas MD [address] [facility], [address] [place] [address] [email or web address] 12/07/2025 9:30 AM EDT Office Visit [facility] Department of [place]rology [address] [place] [address], 8th Floor, [address] [place] [address] Eda Acosta MD [address] [place] [address] [address] [place] [address] [email or web address] documented as of this encounter Visit Diagnoses Not on filedocumented in this encounter Additional Health Concerns Infection Onset Date Last Indicated Resolved Time CoV-Risk Comment:Per note documentation 12/12/2022 12/12/2022 3 1:07 AM EDT Assessment Noted Time PHQ-2 Depression Total Score: 2 10/21/19 22 2:30 PM EST documented as of this encounter Care Teams Instant Print Operator Relationship Specialty Start Date End Date Eda Bowens NP [address] [place] [phone] [email or web address] PCP - General Nurse Practitioner 09/18/2211/26 Pcp, Unknown PCP - General 12/19/24 Eda Bowens NP [address] [place] [phone] [email or web address] Nurse Practitioner 12/19/24 documented as of this encounter Additional Source Comments The information contained in this document represents components of the legal health record. It is not the complete legal health record.[facility]
--- OUTSIDE RECORDS SUMMARY | 2025-06-21 06:15 | XMS_ITS | Encounter Summary ---
Author Organization [facility] Address [address] [facility] [address] [place] [address] Phone Care Team Providers Care Ict Support Engineer Name Role Phone Eda Bowens NP Primary Care Pro vider Pcp, Unknown Primary Care Provider Unavailabl e Eda Bowens NP Unavailable Encounter Details Date Type Department Care Team (Late st Contact Info) Description 12/13/2022 Procedure Pass [place] Admitting Dept - Virtual Department [address] [place] [address] Social History Tobacco Use Types Packs/Day Years [...] Description 10/30/2025 12:20 PM EST Office Visit [facility] [address] [facility] 3rd Floor, [address] [place] [address] Varinder Rivas MD [address] [facility], [address] [place] [address] [email or web address] 12/07/2025 9:30 AM EDT Office [place] [facility] [place] [address] [place] [address], 8th Floor, [address] [place] [address] Eda Acosta MD [address] [place] [address] [address] [place] [address] [email or web address] documented as of this encounter Visit Diagnoses Not on filedocumented in this encounter Additional Health Concerns Infection Onset Date Last Indicated Resolved Time CoV-Risk Comment:Per note documentation 12/12/2022 12/12/2022 3 1:07 AM EDT Assessment Noted Time PHQ-2 Depression Total Score: 2 10/21/19 22 2:30 PM EST documented as of this encounter Care Teams Ict Support Engineer Relationship Specialty Start Date End Date Eda Bowens NP [address] [place] [phone] [email or web address] PCP - General Nurse Practitioner 09/18/2211/26 Pcp, Unknown PCP - General 12/19/24 Eda Bowens NP [address] [place] [phone] [email or web address] Nurse Practitioner 12/19/24 documented as of this encounter Additional Source Comments The information contained in this document represents components of the legal health record. It is not the complete legal health record.[facility]
--- OUTSIDE RECORDS SUMMARY | 2025-06-21 06:15 | XMS_ITS | Encounter Summary ---
Author Organization [facility] Address [address] [facility] [address] [place] [address] Phone Care Team Providers Care Airport Operations Specialist Name Role Phone Eda Bowens NP Primary Care Pro vider Pcp, Unknown Primary Care Provider Unavailabl e Eda Bowens FIELD SALES SPECIALIST Unavailable Encounter Details Date Type Department Care Team (Late st Contact Info) Description 03/27/2023 Procedure Pass [facility] [place], Silver [address] [facility], 2nd Floor, [address] [place] [address] Social History Tobacco Use Types Packs/Day Years [...] as of this encounter Functional Status * [place] Suicide Severity Rating Scale (Screener/Recent Self-Report) Question Answer Date of Assessment Author 1. Wish to be (Past 1 Month) No 03/29/2023 7:00 PM EDT Lisa Dodge RN 2. Non-Specific Active Suicidal Thoughts (Past 1 Month) No 03/29/2023 7:00 PM EDT Lsia Dodge, KENYATTA Calculated C-SSRS Risk Score (Lifetime/Recent) Moderate Risk 03/29/2023 7:00 PM EDT Cristofer Dodge RN 6. Suicidal Behavior (Lifetime) Yes 03/29/2023 7:00 PM EDT Lisa Dodge, KENYATTA documented as of this encounter Plan of Treatment Upcoming Encounters Date Type Department Care Team (Late st Contact Info) Description 10/30/2025 12:20 PM EST Office Visit [facility] [address] [place] [address] 3rd Floor, [address] [place] [address] Varinder Rivas MD [address] [facility], [address] [place] [phone] 12/07/2025 9:30 AM EDT Office Visit [facility] Department of Neurology [address] [place] [address], 8th Floor, [address] [place] [address] Eda Acosta MD [address] [place] [address] [address] [place] [address] [email or web address] documented as of this encounter Visit Diagnoses Not on filedocumented in this encounter Additional Health Concerns Assessment Noted Time PHQ-2 Depression Total Score: 2 10/21/19 22 2:30 PM EST documented as of this encounter Care Teams Airport Operations Specialist Relationship Specialty Start Date End Date Eda Bowens NP [address] [place] [phone] [email or web address] PCP - General Nurse Practitioner 09/18/2211/26 Pcp, Unknown PCP - General 12/19/24 Eda Bowens NP [address] [place] [phone] [email or web address] Nurse Practitioner 12/19/24 documented as of this encounter Additional Source Comments The information contained in this document represents components of the legal health record. It is not the complete legal health record.[facility]
--- OUTSIDE RECORDS SUMMARY | 2025-06-21 06:15 | XMS_ITS | Encounter Summary ---
Author Organization [facility] Address [address] [facility] [address] [place] [address] Phone Care Team Providers Care Gun Fertilizer Name Role Phone Theresa Castellon MD Primary Care Provider [phone] Pcp, Unknown Primary Care Provider UnavailEda Lawton NP Primary Care Pro vider Pcp, Unknown Primary Care Provider UnavailEda Lawton NP Unavailable Anneliese MendezW Unavailable segundo Lauren Garcia DO Unavailable [phone] Ramona Scott MD Unavailable [phone] Laurne Garcia DO Unavailable [phone] Encounter Details Date Type Department Care Team (Late st Contact Info) Description 11/11/2021 Procedure Pass [facility], [facility] - [address] [place] [address] Social History Tobacco Use Types Packs/Day Years [...] as of this encounter Functional Status * Calculated C-SSRS Risk Score (Lifetime/Recent) Answer Date of Assessment Author High Risk 11/14/2021 2:43 AM EDT Jackelyn Damico RN * [place] Suicide Severity Rating Scale (Screener/Recent Self-Report) Question Answer Date of Assessment Author 1. Wish to be (Past 1 Month) Yes 022 2:43 AM EDT Jackelyn Damico RN 2. Non-Specific Active Suici lukasz Thoughts (Past 1 Month) Yes 11/14/2021 2:43 AM EDT Aislinn Damico RN 3. Active Suicidal Ideation with any Methods (Not Plan) Without Intent to Act (Past 1 Month) Yes 11/14/2021 2:43 AM GINGERT Jackelyn Damico RN 4. Active Suicidal Ideation with Some Intent to Act, Without Specific Plan (Past 1 Month) Yes 11/14/2021 2:43 AM EDT Jackelyn Damico RN 5. Active Suicidal Ideation with Specific Plan and Intent (Past 1 Month) No 11/14/2021 2:43 AM GINGERT Jackelyn Damico RN 6. Suicidal Behavior (Lifetime) Yes 2 2:43 AM EDT Jackelyn Damico RN 6. Suicidal Behavior (3 Months) Yes 2 2:43 AM EDT Jackelyn Damico RN documented as of this encounter Plan of Treatment Upcoming Encounters Date Type Department Care Team (Late st Contact Info) Description 10/30/2025 12:20 PM EST Office Visit [facility] [address] [place] [address] 3rd Floor, [address] [place] [address] Varinder Rivas MD [address] [place] [address], [address] [place] [address] [email or web address] 12/07/2025 9:30 AM EDT Office Visit [facility] Department of Neurology [address] [place] [address], 8th Floor, [address] [place] [address] Eda Acosta MD [address] [place] [address] [address] [place] [address] [email or web address] documented as of this encounter Visit Diagnoses Not on filedocumented in this encounter Additional Health Concerns Infection Onset Date Last Indicated Resolved Time CoV-Risk Comment:Per note documentation 11/21/2022 11/21/2022 3 11:05 PM EDT CoV-Risk Comment:Per note documentation 12/12/2022 12/12/2022 3 1:07 AM EDT Assessment Noted Time PHQ-2 Depression Total Score: 2 10/21/19 22 2:30 PM EST documented as of this encounter Care Teams Gun Fertilizer Relationship Specialty Start Date End Date Theresa Castellon MD [email or web address] PCP - General Family Medicine 10/20/21 07/26/22 Pcp, Unknown PCP - General 07/27/22 09/17/22 Eda Bowens NP [address] [place] [address] [email or web address] PCP - General Nurse Practitioner 09/18/22 12/18/24 Pcp, Unknown PCP - General 12/19/24 Eda Bowens NP [address] [place] [address] [email or web address] Nurse Practitioner 12/19/24 Anneliese Mendez, CLINICAL ACCOUNT LIAISON [address] [place] [address] [email or web address] PHCM Chicken Stuffer 10/20/21 03/14/22 Lauren Garcia DO [address] [place] [address] [place] [address] Insurance Assigned Provider 02/04/22 05/06/22 Ramona Scott MD [address] [place] [address] [place] [address] [email or web address] Insurance Assigned Provider 05/06/22 07/02/22 Lauren Garcia DO [address] [place] [address] [place] [address] Insurance Assigned Provider 07/02/22 09/30/22 documented as of this encounter Additional Source Comments The information contained in this document represents components of the legal health record. It is not the complete legal health record.[facility]
--- OUTSIDE RECORDS SUMMARY | 2025-06-21 06:15 | XMS_ITS | Encounter Summary ---
Author Organization [facility] Address [address] [facility] [address] [place] [address] Phone Care Team Providers Care Food Porter Name Role Phone Eda Bowens NP Primary Care Pro vider Pcp, Unknown Primary Care Provider Unavailabl e Eda Bowens NP Unavailable Encounter Details Date Type Department Care Team (Late st Contact Info) Description 03/30/2023 Procedure Pass [facility] [address] [place] [address] Social History Tobacco Use Types [...] Description 10/30/2025 12:20 PM EST Office Visit [facility] [address] [place] [address] 3rd Floor, [address] [place] [address] Varinder Rivas MD [address] [place] [address] [email or web address] 12/07/2025 9:30 AM EDT Office Visit [facility] Department of Neurology [address] [place] [address], 8th Floor, [address] [place] [address] Eda Acosta MD [address] [place] [address] [place] [address] [email or web address]. [email or web address] documented as of this encounter Visit Diagnoses Not on filedocumented in this encounter Additional Health Concerns Assessment Noted Time PHQ-2 Depression Total Score: 2 10/21/19 22 2:30 PM EST documented as of this encounter Care Teams Food Porter Relationship Specialty Start Date End Date Eda Bowens NP [address] [place] [address] [email or web address] PCP - General Nurse Practitioner 09/18/2211/26 Pcp, Unknown PCP - General 12/19/24 Eda Bowens NP [address] [place] [address] [email or web address] Nurse Practitioner 12/19/24 documented as of this encounter Additional Source Comments The information contained in this document represents components of the legal health record. It is not the complete legal health record.[facility]
--- OUTSIDE RECORDS SUMMARY | 2025-06-21 06:15 | XMS_ITS | Encounter Summary ---
Author Organization [facility] Address [address] [facility] [address] [place] [address] Phone Care Team Providers Care Retail Chain Store Area Supervisor Name Role Phone Eda Bowens NP Primary Care Pro vider Pcp, Unknown Primary Care Provider Unavailabl e Eda Bowens HORSE RACE TIMER Unavailable Lauren Garcia DO Unavailable [phone] Encounter Details Date Type Department Care Team (Late st Contact Info) Description 09/26/2022 Procedure Pass [facility], Ct Scan - [address] [address] Social History Tobacco Use Types Packs/Day Years [...] Description 10/30/2025 12:20 PM EST Office Visit [facility] [address] [place] [address] 3rd Floor, [address] [place] [address] Varinder Rivas MD [address] [place] [address], [address] [place] [address] [email or web address] 12/07/2025 9:30 AM EDT Office [place] [facility] [place]rology [address] [place] [address], 8th Floor, [address] [place] [address] Eda Acosta MD [address] [place] [address] 8[address] [place] [address] [email or web address] documented as of this encounter Visit Diagnoses Not on filedocumented in this encounter Additional Health Concerns Infection Onset Date Last Indicated Resolved Time CoV-Risk Comment:Per note documentation 11/21/2022 11/21/2022 3 11:05 PM EDT CoV-Risk Comment:Per note documentation 12/12/2022 12/12/2022 3 1:07 AM EDT Assessment Noted Time PHQ-2 Depression Total Score: 2 10/21/19 22 2:30 PM EST documented as of this encounter Care Teams Retail Chain Store Area Supervisor Relationship Specialty Start Date End Date Eda Bowens NP [address] [place] [address] [email or web address] PCP - General Nurse Practitioner 09/18/22 12/18/24 Pcp, Unknown PCP - General 12/19/24 Eda Bowens NP [address] [place] [address] [email or web address] Nurse Practitioner 12/19/24 Lauren Garcia DO [address] [place] [address] [place] [address] [email or web address] Insurance Assigned Provider 07/02/22 09/30/22 documented as of this encounter Additional Source Comments The information contained in this document represents components of the legal health record. It is not the complete legal health record.[facility]
--- OUTSIDE RECORDS SUMMARY | 2025-06-21 06:15 | XMS_ITS | Encounter Summary ---
Author Organization [facility] Address [address] [facility] [address] [place] [address] Phone Care Team Providers Care Stunt Driver Name Role Phone Remy Mckay MD Primary Care Provider [phone] Garrett Blood MD Primary Care Provider Unknown, Unknown Primary Care Provider Sarah Lara MD Primary Care Provider [phone] Sarah Kramer MD Primary Care Provider [phone] Irina Everett MD Primary Care Provider [phone] Eda Bowens NP Primary Care Pro vider Theresa Castellon MD Primary Care Provider [phone] Pcp, Unknown Primary Care Provider Unavailabl Eda Vasquez NP Primary Care Pro vider Pcp, Unknown Primary Care Provider Unavailabl e Eda Bowens NP Unavailable Anneliese Mendez MANAGEMENT DEPARTMENT CHAIR Unavailable segundo Lauren Garcia DO Unavailable [phone] Ramona Scott MD Unavailable [phone] Lauren Garcia DO Unavailable [phone] Encounter Details Date Type Department Care Team (Late st Contact Info) Description 09/18/2017 Procedure Pass [place] Admitting Dept - Virtual Department [address] [place] [address] Social History Tobacco Use Types Packs/Day Years [...] Encounters Date Type Department Care Team (Late Contact Info) Description 10/30/2025 12:20 PM EST Office Visit [facility] [address] [place] [address] 3rd Floor, [address] [place] [address] Varinder Rivas MD [address] [place] [address] [address] [place] [address] [email or web address] 12/07/2025 9:30 AM EDT Office Visit [facility] Department of Neurology [address] [place] [address], 8th Floor, [address] [place] [address] Eda Acosta MD [address] [place] [address] [email or web address] documented as of this encounter Visit Diagnoses Not on filedocumented in this encounter Additional Health Concerns Infection Onset Date Last Indicated Resolved Time CoV-Risk 11/20/2019 11/20/2019 12/04/2019 1:23 AM EDT CoV-Risk Comment:Per note documentation 11/21/2022 11/21/2022 11:05 PM EDT CoV-Risk Comment:Per note documentation 12/12/2022 12/12/2022 3 1:07 AM EDT documented as of this encounter Care Teams Stunt Driver Relationship Specialty Start Date End Date Remy Mckay MD [email or web address] PCP - General 06/12/17 12/16/17 Garrett Blood MD [address], [place] [address] [email or web address] PCP - General Internal Medicine 12/17/17 09/17/18 Christian, MD Christian [address], [place] [address] PCP - General 09/18/18 11/19/19 Sarah Kramer MD [address] [place] [address] PCP - General Internal Medicine 11/20/19 11/22/19 Sarah Kramer MD [address] [place] [address] PCP - General Internal Medicine 12/15/19 01/22/20 Irina Everett MD [address] [place] [address] PCP - General Internal Medicine 01/23/20 07/27/21 Eda Bowens NP [address] [place] [address] [email or web address] PCP - General Family Medicine 08/26/21 10/19/21 Theresa Castellon MD [address] [place] [address] [email or web address] PCP - General Family Medicine 10/20/21 07/26/22 Pcp, Unknown PCP - General 07/27/22 09/17/22 Eda Bowens NP [address] [place] [address] [email or web address] PCP - General Nurse Practitioner 09/18/22 12/18/24 Pcp, Unknown PCP - General 12/19/24 Eda Bowens NP [address] [place] [address] [email or web address] Nurse Practitioner 12/19/24 Anneliese Mendez, [address] [address] [email or web address] PHC Oracle Database Developer 10/20/21 03/14/22 Lauren Garcia DO [address] [place] [address] [place] [address] Insurance Assigned Provider 02/04/22 05/06/22 Ramona Scott MD [address] [place] [address] [place] [address] [email or web address] Insurance Assigned Provider 05/06/22 07/02/22 Lauren Garcia DO [address] [place] [address] [place] [address] Insurance Assigned Provider 07/02/22 09/30/22 documented as of this encounter Additional Source Comments The information contained in this document represents components of the legal health record. It is not the complete legal health record.[facility]
--- OUTSIDE RECORDS SUMMARY | 2025-06-21 06:15 | XMS_ITS | Encounter Summary ---
Author Organization [facility] Address [address] [facility] [address] [place] [address] Phone Care Team Providers Care Brilliandeer Looper Name Role Phone Eda Bowens NP Primary Care Pro vider Pcp, Unknown Primary Care Provider Unavailabl e Eda Bowens NP Unavailable Encounter Details Date Type Department Care Team (Late st Contact Info) Description 03/27/2023 Procedure Pass [facility] 3DCTMR MG [address] [place] [address] Social History Tobacco Use Types Packs/Day Years [...] as of this encounter Functional Status * [place] Suicide Severity Rating Scale (Screener/Recent Self-Report) Question [...] Description 10/30/2025 12:20 PM EST Office Visit [facility] [address] [place] [address] 3rd Floor, [address] [place] [address] Varinder Rivas MD [address] [place] [address], [address] [place] [address] 12/07/2025 9:30 AM EDT Office [place] [facility] [place] [address] [place] [address], 8th Floor, [address] [place] [address] Eda Acosta MD [address] [place] [address] 835 [place] [address] [email or web address] documented as of this encounter Visit Diagnoses Not on filedocumented in this encounter Additional Health Concerns Assessment Noted Time PHQ-2 Depression Total Score: 2 10/21/19 22 2:30 PM EST documented as of this encounter Care Teams Brilliandeer Looper Relationship Specialty Start Date End Date Eda Bowens NP [address] [place] [address] [email or web address] PCP - General Nurse Practitioner 09/18/2211/26 Pcp, Unknown PCP - General 12/19/24 Eda Bowens NP [address] [place] [address] [email or web address] Nurse Practitioner 12/19/24 documented as of this encounter Additional Source Comments The information contained in this document represents components of the legal health record. It is not the complete legal health record.[facility]
--- OUTSIDE RECORDS SUMMARY | 2025-06-21 06:15 | XMS_ITS | Encounter Summary ---
Author Organization [facility] Address [address] [facility] [address] [place] [address] Phone Care Team Providers Care Lime Kiln Worker Name Role Phone Garrett Blood MD Primary Care Provider Unknown, Unknown Primary Care Provider Sarah Lara MD Primary Care Provider Sarah Kramer MD Primary Care Provider [phone] Irina Everett MD Primary Care Provider Eda Bowens NP Primary Care Pro vider Theresa Castellon MD Primary Care Provider [phone] Pcp, Unknown Primary Care Provider Unavailabl e Eda Bowens NP Primary Care Pro vider Pcp, Unknown Primary Care Provider Unavailabl e Eda Bowens NP Unavailable Anneliese Mendez LCSW Unavailable segundo Lauren Garcia DO Unavailable [phone] Ramona Scott MD Unavailable [phone] Lauren Garcia DO Unavailable [phone] Encounter Details Date Type Department Care Team (Late st Contact Info) Description 12/17/2017 Ancillary Orders [facility] External Provider Virtual Department [address] [place] [address] Agatha Swan PA [address] [place] [address] Pain Social History Tobacco Use Types Packs/Day Years [...] Description 10/30/2025 12:20 PM EST Office Visit [facility] [address] [place] [address] 3rd Floor, [address] [place] [address] Varinder Rivas MD [address] [place] [address] [email or web address] 12/07/2025 9:30 AM EDT Office Visit [facility] Department of Neurology [address] [place] [address], 8th Floor, [address] [place] [address] Eda Acosta MD [address] [place] [address] [place] [address] [email or web address] documented as of this encounter Results * XR ELBOW 3 OR MORE VIEWS (LEFT) (12/17/2017 11:03 AM EDT) Anatomical Region Laterality Modality Elbow Left Radiographic Onelia ging 12/17/2017 11:1 0 AM EDT Impressions 12/17/2017 11:10 AM EDT No acute bony abnormality. POS - [id number] Narrative 12/17/2017 11:10 AM EDT Frontal, lateral, and oblique views disclose no fracture, subluxation, or other significant abnormality involving the visualized regional skeletal structures. No elevation of the distal humeral fat pads is noted. Procedure Note Anthony Gordillo MD - 12/17/2017 Frontal, lateral, and oblique views disclose no fracture, subluxation, orother significant abnormality involving the visualized regional skeletalstructures. No elevation of the distal humeral fat pads is noted. IMPRESSION: No acute bony abnormality. POS - [id number] Agatha Lou Cutter PA IMG XR UPPER EXTREMITY Final Result documented in this encounter Visit Diagnoses Diagnosis Pain Generalized pain Pain Generalized pain documented in this encounter Additional Health Concerns Infection Onset Date Last Indicated Resolved Time CoV-Risk 11/20/2019 11/20/2019 12/04/2019 1:23 AM EDT CoV-Risk Comment:Per note documentation 11/21/2022 11/21/2022 3 11:05 PM EDT CoV-Risk Comment:Per note documentation 12/12/2022 12/12/2022 3 1:07 AM EDT documented as of this encounter Care Teams Lime Kiln Worker Relationship Specialty Start Date End Date Garrett Blood MD [address] [place] [address] [email or web address] PCP - General Internal Medicine 12/17/17 09/17/18 Unknown, Christian, [address] [place] [address] PCP - General 09/18/18 11/19/19 Sarah Kramer MD [address] [place] [address] PCP - General Internal Medicine 11/20/19 11/22/19 Sarah Kramer MD [address] [place] [address] PCP - General Internal Medicine 12/15/19 01/22/20 Irina Everett MD [address] [place] [address] PCP - General Internal Medicine 01/23/20 07/27/21 Eda Bowens NP [address] [place] [address] [email or web address] PCP - General Family Medicine 08/26/21 10/19/21 Theresa Castellon MD [address] [place] [address] [email or web address] PCP - General Family Medicine 10/20/21 07/26/22 Pcp, Unknown PCP - General 07/27/22 09/17/22 Eda Bowens NP [address] [place] [address] [email or web address] PCP - General Nurse Practitioner 09/18/22 12/18/24 Pcp, Unknown PCP - General 12/19/24 Eda Bowens NP [address] [place] [address] [email or web address] Nurse Practitioner 12/19/24 Anneliese Mendez, COMMERCIAL MARKETING SPECIALIST [address] [place] [address] [email or web address] PHCM Swim Instructor 10/20/21 03/14/22 Lauren Garcia DO [address] [place] [address] [email or web address] Insurance Assigned Provider 02/04/22 05/06/22 Ramona Scott MD [address] [place] [address] [email or web address] Insurance Assigned Provider 05/06/22 07/02/22 Lauren Garcia DO [address] [place] [address] [email or web address] Insurance Assigned Provider 07/02/22 09/30/22 documented as of this encounter Additional Source Comments The information contained in this document represents components of the legal health record. It is not the complete legal health record.[facility]
--- OUTSIDE RECORDS SUMMARY | 2025-06-21 06:16 | XMS_ITS | Encounter Summary ---
Author Organization [facility] Address [address] [facility] [address] [place] [address] Phone Care Team Providers Care Head Of Advertising Name Role Phone Eda Bowens NP Primary Care Pro vider Pcp, Unknown Primary Care Provider Unavailabl e Eda Bowens FAMILY MEDIATOR Unavailable Lauren Garcia DO Unavailable [phone] Encounter Details Date Type Department Care Team (Late st Contact Info) Description 09/26/2022 Procedure Pass [facility], Ct Scan - [address] [address] Social History Tobacco Use Types Packs/Day Years [...] Description 10/30/2025 12:20 PM EST Office Visit [facility] [address] [place] [address] 3rd Floor, [address] [place] [address] Varinder Rivas MD [address] [place] [address], [address] [place] [address] [email or web address] 12/07/2025 9:30 AM EDT Office Visit [facility] Department of Neurology [address] [place] [address], 8th Floor, [address] [place] [address] Eda Acosta MD [address] [place] [address] 8[address] [place] [address] [email or web address] documented as of this encounter Visit [...] documented as of this encounter Care Teams Head Of Advertising Relationship Specialty Start Date End Date Eda Bowens NP [address] [place] [address] [email or web address] PCP - General Nurse Practitioner 09/18/22 12/18/24 Pcp, Unknown PCP - General 12/19/24 Eda Bowens NP [address] [place] [address] [email or web address] Nurse Practitioner 12/19/24 Lauren Garcia DO [address] [place] [address] [place] [address] [email or web address] Insurance Assigned Provider 07/02/22 09/30/22 documented as of this encounter Additional Source Comments The information contained in this document represents components of the legal health record. It is not the complete legal health record.[facility]
--- OUTSIDE RECORDS SUMMARY | 2025-06-21 06:16 | XMS_ITS | Encounter Summary ---
Author Organization [facility] Address [address] [employer] [facility] [address] [place] [address] Phone Care Team Providers Care Polisher Numeral Name Role Phone Eda Bowens NP Primary Care Pro vider Pcp, Unknown Primary Care Provider Unavailabl e Eda Bowens INSURANCE COLLECTOR Unavailable Encounter Details Date Type Department Care Team (Late st Contact Info) Description 12/31/2022 Procedure Pass [facility], Ct Scan - [address] [id number] Social History Tobacco Use Types Packs/Day Years [...] on file 12/21/2022 No 12/21/2022 No 12/21/2022 Education Answer Date Recorded What is the [...] Description 10/30/2025 12:20 PM EST Office Visit [facility] [address] [place] [address] 3rd Floor, [address] [place] [address] Varinder Rivas MD [address] [facility], [address] [place] [address] [email or web address] 12/07/2025 9:30 AM EDT Office Visit [facility] Department of Neurology [address] [place] [address], 8th Floor, [address] [place] [address] Eda Acosta MD [address] [place] [address] [place] [address] [email or web address] documented as of this encounter Visit Diagnoses Not on filedocumented in this encounter Additional Health Concerns Assessment Noted Time PHQ-2 Depression Total Score: 2 10/21/19 22 2:30 PM EST documented as of this encounter Care Teams Polisher Numeral Relationship Specialty Start Date End Date Eda Bowens NP [address] [place] [address] [email or web address] PCP - General Nurse Practitioner 09/18/22 4/12/19 Pcp, Unknown PCP - General 12/19/24 Eda Bowens NP [address] [place] [address] [email or web address] Nurse Practitioner 12/19/24 documented as of this encounter Additional Source Comments The information contained in this document represents components of the legal health record. It is not the complete legal health record.[facility]
--- OUTSIDE RECORDS SUMMARY | 2025-06-21 06:16 | XMS_ITS | Encounter Summary ---
Author Organization [facility] Address [address] [place] [address] Care Team Providers Care Instructor Apparel Manufacture Name Role Phone Eda Bowens Primary Care Provider [phone] Encounter Details Date Type Department Care Team (Late st Contact Info) Description 09/27/2022 myChart Message [facility] [address] [place] [phone] Angelita Seth MD [address] [place] [address] [phone] Reactions Social History Tobacco Use Types Packs/Day Years Used Date Smoking Tobacco: Every Day Cigarettes 1 4.8 Started: 2020 Smokeless Tobacco: Never Alcohol Use [...] on filedocumented in this encounter Care Teams Instructor Apparel Manufacture Relationship Specialty Start Date End Date Eda Bowens [address] [place] [phone] PCP - General 03/31/25 documented as of this encounter
--- OUTSIDE RECORDS SUMMARY | 2025-06-21 06:16 | XMS_ITS | Encounter Summary ---
Author Organization [facility] Address [address] [facility] [address] [place] [address] Phone Care Team Providers Care Midwife [facility] Owner Name Role Phone Eda Bowens NP Primary Care Pro vider Pcp, Unknown Primary Care Provider Unavailabl e Eda Bowens NP Unavailable Encounter Details Date Type Department Care Team (Late st Contact Info) Description 12/16/2022 Procedure Pass [place] Admitting Dept - Virtual Department [address] [place] [address] Social History Tobacco Use Types Packs/Day Years [...] Description 10/30/2025 12:20 PM EST Office Visit [facility] [address] [facility] 3rd Floor, [address] [place] [address] Varinder Rivas MD [address] [facility], [address] [place] [address] [email or web address] 12/07/2025 9:30 AM EDT Office Visit [facility] Department of Neurology [address] [place] [address], 8th Floor, [address] [place] [address] Eda Acosta MD [address] [place] [address] [address] [place] [address] [email or web address] documented as of this encounter Visit Diagnoses Not on filedocumented in this encounter Additional Health Concerns Assessment Noted Time PHQ-2 Depression Total Score: 2 10/21/19 22 2:30 PM EST documented as of this encounter Care Teams [facility] Owner Relationship Specialty Start Date End Date Eda Bowens NP [address] [place] [address] [email or web address] PCP - General Nurse Practitioner 09/18/2211/26 Pcp, Unknown PCP - General 12/19/24 Eda Bowens NP [address] [place] [address] [email or web address] Nurse Practitioner 12/19/24 documented as of this encounter Additional Source Comments The information contained in this document represents components of the legal health record. It is not the complete legal health record.[facility]
--- OUTSIDE RECORDS SUMMARY | 2025-06-21 06:16 | XMS_ITS | Encounter Summary ---
Author Organization [facility] Address [address] [employer] [facility] [address] [place] [address] Phone Care Team Providers Care Elementary Substitute Teacher Name Role Phone Eda Bowens NP Primary Care Pro vider Theresa Castellon MD Primary Care Provider [phone] Pcp, Unknown Primary Care Provider UnavailEda Lawton NP Primary Care Pro vider Pcp, Unknown Primary Care Provider UnavailEda Lawton NP Unavailable Anneliese Mendez CREDIT ADVISOR Unavailable [email or web address] Lauren Garcia DO Unavailable [phone] Ramona Scott MD Unavailable [phone] Lauren Garcia DO Unavailable [phone] Encounter Details Date Type Department Care Team (Late st Contact Info) Description 08/26/2021 Procedure Pass [facility], Ct Scan - [address] [address] Social History Tobacco Use Types Packs/Day Years Used Date Smoking Tobacco: Never Smokeless Tobacco: Never Alcohol Use Standard Drinks/Week Comments Yes 0 (1 standard drink = 0.6 oz pur e alcohol) one glass of wine nightly Comments Unknown Sex and Gender Information Value [...] Description 10/30/2025 12:20 PM EST Office Visit [facility] [address] [place] [address] 3rd Floor, [address] [place] [address] Varinder Rivas MD [address] [place] [address], [facility] [address] [place] [address] [email or web address] 12/07/2025 9:30 AM EDT Office Visit [facility] Department of Neurology [address] [place] [address], 8th Floor, [address] [place] [address] Eda Acosta MD [address] [place] [address] [address] [place] [address] [email or web address] documented as of this encounter Visit Diagnoses Not on filedocumented in this encounter Additional Health Concerns Infection Onset Date Last Indicated Resolved Time CoV-Risk Comment:Per note documentation 11/21/2022 11/21/2022 3 11:05 PM EDT CoV-Risk Comment:Per note documentation 12/12/2022 12/12/2022 3 1:07 AM EDT documented as of this encounter Care Teams Elementary Substitute Teacher Relationship Specialty Start Date End Date Eda Bowens NP [address] [place] [address] [email or web address] PCP - General Family Medicine 08/26/21 10/19/21 Theresa Castellon MD [address] [place] [address] [email or web address] PCP - General Family Medicine 10/20/21 07/26/22 Pcp, Unknown PCP - General 07/27/22 09/17/22 Eda Bowens NP [address] [place] [address] [email or web address] PCP - General Nurse Practitioner 09/18/22 12/18/24 Pcp, Unknown PCP - General 12/19/24 Eda Bowens NP [address] [place] [address] [email or web address] Nurse Practitioner 12/19/24 Anneliese Mendez, [address] [address] [email or web address] PHCM Supervisor [employer] 10/20/21 03/14/22 Lauren Garcia DO [address] [place] [address] [place] Insurance Assigned Provider 02/04/22 05/06/22 Ramona Scott MD [address] [place] [address] [place] [address] [email or web address] Insurance Assigned Provider 05/06/22 07/02/22 Lauren Garcia DO [address] [place] [address] [place] [address] Insurance Assigned Provider 07/02/22 09/30/22 documented as of this encounter Additional Source Comments The information contained in this document represents components of the legal health record. It is not the complete legal health record.[facility]
--- OUTSIDE RECORDS SUMMARY | 2025-06-21 06:16 | XMS_ITS | Encounter Summary ---
Author Organization [facility] Address [address] [employer] [place] [address] Phone Care Team Providers Care Button Maker And Installer Name Role Phone Eda Bowens NP Primary Care Pro vider Pcp, Unknown Primary Care Provider Unavailabl e Eda Bowens NP Unavailable Encounter Details Date Type Department Care Team (Late st Contact Info) Description 11/27/2022 Procedure Pass [facility], Ct Scan - [address] [address] Social History Tobacco Use Types Packs/Day Years [...] Description 10/30/2025 12:20 PM EST Office Visit [facility] 3rd Floor, [address] [place] [address] Varinder Rivas MD 22 [facility], [address] [place] [address] [email or web address] 12/07/2025 9:30 AM EDT Office [place] [facility] Department of Neurology [address] [place] [address], 8th Floor, [address] [place] [address] Eda Acosta MD [address] [place] [address] [address] [place] [address] [email or web address] documented as of this encounter Visit Diagnoses Not on filedocumented in this encounter Additional Health Concerns Infection Onset Date Last Indicated Resolved Time CoV-Risk Comment:Per note documentation 12/12/2022 12/12/2022 3 1:07 AM EDT Assessment Noted Time PHQ-2 Depression Total Score: 2 10/21/19 22 2:30 PM EST documented as of this encounter Care Teams Button Maker And Installer Relationship Specialty Start Date End Date Eda Bowens NP [address] [place] [address] [email or web address] PCP - General Nurse Practitioner 09/18/2211/26 Pcp, Unknown PCP - General 12/19/24 Eda Bowens NP [address] [place] [address] [email or web address] Nurse Practitioner 12/19/24 documented as of this encounter Additional Source Comments The information contained in this document represents components of the legal health record. It is not the complete legal health record.[facility]
--- OUTSIDE RECORDS SUMMARY | 2025-06-21 06:16 | XMS_ITS | Encounter Summary ---
Author Organization [facility] Address [address] [facility] [address] [place] [address] Phone Care Team Providers Care Parimutuel Ticket Checker Name Role Phone Theresa Castellon MD Primary Care Provider [phone] Pcp, Unknown Primary Care Provider UnavailEda Lawton NP Primary Care Pro vider Pcp, Unknown Primary Care Provider UnavailEda Lawton NP Unavailable Anneliese MendezW Unavailable segundo Lauren Garcia DO Unavailable [phone] Ramona Scott MD Unavailable [phone] Lauren Garcia DO Unavailable [phone] Encounter Details Date Type Department Care Team (Late st Contact Info) Description 11/29/2021 Procedure Pass [facility], Ct Scan - [address] [address] Social History Tobacco Use Types Packs/Day Years [...] Description 10/30/2025 12:20 PM EST Office Visit [facility] [address] [place] [address] 3rd Floor, [address] [place] [address] Varinder Rivas MD [address] [place] [address], [address] [place] [address] [email or web address] 12/07/2025 9:30 AM EDT Office [place] [facility] [place] [address] [place] [address], 8th Floor, [address] [place] [address] Eda Acosta MD [address] [place] [address] [place] [address] [email or web address] documented as of this encounter [...] documented as of this encounter Care Teams Parimutuel Ticket Checker Relationship Specialty Start Date End Date Theresa Castellon MD [email or web address] PCP - General Family Medicine 10/20/21 07/26/22 Pcp, Unknown PCP - General 07/27/22 09/17/22 Ead Bowens NP [address] [place] [address] [email or web address] PCP - General Nurse Practitioner 09/18/22 12/18/24 Pcp, Unknown PCP - General 12/19/24 Eda Bowens NP [address] [place] [address] [email or web address] Nurse Practitioner 12/19/24 Anneliese Mendez, [address] [address] [email or web address] PHCM Pier Master 10/20/21 03/14/22 Lauren Garcia DO [address] [place] [address] [place] [address] Insurance Assigned Provider 02/04/22 05/06/22 Ramona Scott MD [address] [place] [address] [place] [address] [email or web address] Insurance Assigned Provider 05/06/22 07/02/22 Lauren Garcia DO [address] [place] [address] [place] [address] Insurance Assigned Provider 07/02/22 09/30/22 documented as of this encounter Additional Source Comments The information contained in this document represents components of the legal health record. It is not the complete legal health record.[facility]
--- OUTSIDE RECORDS SUMMARY | 2025-06-21 06:16 | XMS_ITS | Encounter Summary ---
Author Organization [facility] Address [address] [place] [address] Care Team Providers Care Web Applications Administrator Name Role Phone Eda Bowens Primary Care Provider [phone] Encounter Details Date Type Department Care Team (Late st Contact Info) Description 09/06/2022 EVS Glaucoma Therapeuticshart Message [facility] [address] [place] [address] Mychart, Generic Provider [address] [place] [address] LTM- Risk Control Field Representative Video EEG Monitoring scheduled for 09-18-2022 (late [...] on filedocumented in this encounter Care Teams Web Applications Administrator Relationship Specialty Start Date End Date Eda Bowens [address] [place] [phone] PCP - General 03/31/25 documented as of this encounter
--- OUTSIDE RECORDS SUMMARY | 2025-06-21 06:16 | XMS_ITS | Encounter Summary ---
Author Organization [facility] Address [address] [facility] [address] [place] [address] Phone Care Team Providers Care Powder Shoveler Name Role Phone Theresa Castellon MD Primary Care Provider [phone] Pcp, Unknown Primary Care Provider UnavailEda Lawton NP Primary Care Pro vider Pcp, Unknown Primary Care Provider UnavailEda Lawton NP Unavailable Anneliese MendezW Unavailable [email or web address] Lauren Garcia DO Unavailable [phone] Ramona Scott MD Unavailable [phone] Lauren Garcia DO Unavailable [phone] Reason for Referral * MRI/CAT Scan - Closed Specialty Diagnoses / Procedures Referred By Cait vogt Referred To Contact Radiology Diagnoses Chronic low back pain, unspecified back pain laterality, unspecified whether sciatica present Procedures MRI Pelvis (GI/) Stephen Burleson MD Phone: tel: fax: Referral ID Status Reason Start Date Expiration Date Visits Re quested Visits Authorized [id number] Closed 11/11/2021 11/11/2022 1 1 Encounter Details Date Type Department Care Team (Latest Contact Info) Description 11/11/2021 Transcribe Orders Virtual Department [address] [place] [address] Stephen Burleson MD [address] [place] [address] Chronic low back pain, unspecified back pain laterality, unspecified whether sciatica present (Primary Dx) Social History Tobacco Use Types Packs/Day Years [...] 2:43 AM EDT Jackelyn Damico RN * [place] Suicide Severity Rating Scale (Screener/Recent Self-Report) Question [...] 11/14/2021 2:43 AM EDT Jackelyn Damico RN 4. Active Suicidal Ideation with Some Intent to Act, Without Specific Plan (Past 1 Month) Yes 11/14/2021 2:43 AM EDT Jackelyn Damico RN 5. Active Suicidal Ideation with Specific Plan and Intent (Past 1 Month) No 11/14/2021 2:43 AM EDT Jackelyn Damico RN 6. Suicidal Behavior (Lifetime) Yes 2 2:43 AM EDT Jackelyn Damico RN 6. Suicidal Behavior (3 Months) Yes 2 2:43 AM EDT Jackelyn Damico RN documented as of this encounter Plan of Treatment Upcoming Encounters Date Type Department Care Team (Late st Contact Info) Description 10/30/2025 12:20 PM EST Office Visit [facility] [address] [place] [address] 3rd Floor, [address] [place] [address] Varinder Rivas MD [address] [place] [address] [address] [place] [address] [email or web address] 12/07/2025 9:30 AM EDT Office [place] [facility] [place] [address] [place] [address], 8th Floor, [address] [place] [address] Eda Acosta MD [address] [place] [address] [email or web address] documented as of this encounter Results * MRI PELVIS WITH AND WITHOUT CONTRAST (12/20/2021 3:07 PM EDT) Anatomical Region Laterality Modality Pelvis Magnetic Resonan ce 12/20/2021 3:48 PM EDT Impressions 12/20/2021 4:23 PM EDT No MR evidence of bony or muscular abnormality. Narrative 12/20/2021 4:23 PM EDT MRI PELVIS WITH AND WITHOUT CONTRAST TECHNIQUE: Multi-sequence, multi-planar MRI of the pelvis with and without intravenous contrast. COMPARISON: CT of abdomen/pelvis on August 26, 2021 FINDINGS: Bone: No fracture, sacroiliitis, or focal bone lesion. Hip Joints: Normal. No subchondral edema. No effusion or synovitis. Muscles: No focal fatty muscle atrophy. Soft Tissues: No soft tissue mass. No bursal collection. Miscellaneous: Normal-sized bilateral ovaries containing physiologic follicles. There is a 1.1 cm left paraovarian cyst (6:12). Procedure Note Gaston Dorado MD - 12/20/2021 MRI PELVIS WITH AND WITHOUT CONTRAST TECHNIQUE: Multi-sequence, multi-planar MRI of the pelvis with and withoutintravenous contrast. COMPARISON: CT of abdomen/pelvis on August 26, 2021 FINDINGS: Bone: No fracture, sacroiliitis, or focal bone lesion. Hip Joints: Normal. No subchondral edema. No effusion or synovitis. Muscles: No focal fatty muscle atrophy. Soft Tissues: No soft tissue mass. No bursal collection. Miscellaneous: Normal-sized bilateral ovaries containing physiologicfollicles. There is a 1.1 cm left paraovarian cyst (6:12). IMPRESSION: No MR evidence of bony or muscular abnormality. Stephen Burleson MD IMG MR PELVIS F inal Result documented in this encounter Visit Diagnoses Diagnosis Chronic low back pain, unspecified back pain laterality, unspecified whether sciatica present- Primary Chronic low back pain, unspecified back pain laterality, unspecified whether sciatica present documented in this encounter Additional Health Concerns Infection Onset Date Last Indicated Resolved Time CoV-Risk Comment:Per note documentation 11/21/2022 11/21/2022 3 11:05 PM EDT CoV-Risk Comment:Per note documentation 12/12/2022 12/12/2022 3 1:07 AM EDT Assessment Noted Time PHQ-2 Depression Total Score: 2 10/21/19 22 2:30 PM EST documented as of this encounter Care Teams Powder Shoveler Relationship Specialty Start Date End Date Theresa Castellon MD [email or web address] PCP - General Family Medicine 10/20/21 07/26/22 Pcp, Unknown PCP - General 07/27/22 09/17/22 Eda Bowens NP [address] [place] [address] [email or web address] PCP - General Nurse Practitioner 09/18/22 12/18/24 Pcp, Unknown PCP - General 12/19/24 Eda Bowens NP [address] [place] [address] [email or web address] Nurse Practitioner 12/19/24 Anneliese Mendez, [address] [address] [email or web address] PHCM Road Worker 10/20/21 03/14/22 Lauren Garcia DO [address] [place] [address] [place] [phone] Insurance Assigned Provider 02/04/22 05/06/22 Ramona Scott MD [address] [place] [address] [place] [id number] [email or web address] Insurance Assigned Provider 05/06/22 07/02/22 Lauren Garcia DO [address] [place] [address] [place] [phone] Insurance Assigned Provider 07/02/22 09/30/22 documented as of this encounter Additional Source Comments The information contained in this document represents components of the legal health record. It is not the complete legal health record.[facility]
--- OUTSIDE RECORDS SUMMARY | 2025-06-21 06:16 | XMS_ITS | Data Portability ---
Author Organization [place] - [facility] Address [address] [place] [address] Care Team Providers Care Inside B2B Sales Name Role Phone SIVA RUBIO Primary Care Provider Assessment Encounter Date Assessment Date Assessment LastModified by Organization Details LastModified Time 08/07/2020 08/07/2020 Overview/History : 20-year-old Transgender male with past medical history significant for asthma, depression, and WPW status post recent ablation at [facility] by Dr. Little in May, new to [facility], who presents for a COVID test. Patient had a telehealth visit With his primary care yesterday who prescribed Tylenol, Motrin, and Tessalon Perles and recommended [facility] evaluation for COVID test. Patient states at [...] stomach aches, and diarrhea. He states the mpve-edk-kotudtd medications are helping somewhat. No chest pain, [...] throat culture and COVID test pending. Plan/Discussion: [facility] came to evaluate your fever, sore throat, [...] per your primary care. Hydrate well. [facility] for new or worsening symptoms. If you develop severe shortness of breath or weakness call 911 or go to the ER. [facility] you [facility]. We cannot always find [...] in your condition between 8am-10pm, please call [facility] at [phone] to help navigate your care. Proper Personal Protective Equipment (PPE), including gloves, eye protection, N95 mask, gown, and shoe covers were donned and doffed appropriately and all equipment cleaned using approved technique with germicidal disposable wipes prior to and after care of this patient according to [facility]'s infection prevention protocols. In order to obtain further information and compare any laboratory results/values, I have accessed patient records on the [employer]. This information was pertinent in [...] after care of this patient according to [facility]'s infection prevention protocols. In order to obtain further information and compare any laboratory results/values, I have accessed old patient records. This information was pertinent in my medical decision making today. Time On Scene with Patient: 00:36:38 [email or web address] Not available 08/11/2020 20:10:36 08/15/2020 08/15/2020 Overview/History : 20-year-old male with past medical history significant for asthma, depression, and WPW status post recent cardiac ablation at [facility], known to [facility], who presents with complaints of worsening [...] SARS CoV 2 RNA (COVID-19) , QL, cycle specialist-PCR, respirator y specimen 2020 021 SEUN [facility] (Centralized Electronic Ordering - All Locations), Patient Can Go To The Location Of Their Choice, [address] 1 07:25:57 BMP + ionized calcium, serum or plasma 2019 020 SEUN [facility], [address], [place], [address], 0 15:52:05 rapid flu (A+B) 2019 020 [email or web address] [facility] Home, [address] [facility], [place], [address], 0 18:30:08 SARS CoV 2 RNA (COVID-19) , QL, cycle specialist-PCR, respirator y specimen 2019 020 [email or web address] [facility] (Centralized Electronic Ordering - All Locations), Patient Can Go To The Location Of Their Choice, [address] 0 14:19:22 SARS CoV 2 RNA (COVID-19) , QL, cycle specialist-PCR, respirator y specimen 2019 020 [facility] (Centralized Electronic Ordering - All Locations), Patient Can Go To The Location Of Their Choice, [address] 0 19:24:10 rapid strep group A, throat 2019 020 badBroadlink [facility], [address], [place], [address], 0 17:46:48 rapid flu (A+B) 2019 020 badBroadlink Spr - Home, [address], [place], [address], 0 17:46:47 culture, throat 2019 020 SEUN [facility] (Centralized Electronic Ordering - All Locations), Patient Can Go To The Location Of Their Choice, [address] 0 07:35:43 Referral None recorded. Procedures None recorded. Surgeries None recorded. Imaging None recorded. Medication Orders nystatin 100,000 unit/mL oral suspension 2020 021 AT[address] [id number] [employer], [address] [place], [address], 1 12:50:59 ondansetro n 4 mg disintegra ting tablet 2019 020 INTERFACE [facility] [employer], [address] [place], [address], 0 18:38:35 Patient TargetsNo targets recorded. Patient Instructions Encounter Date Encounter Id Patient Instructions Last Modified By Organization Details Last Modified Time 08/07/2020 [id number] [facility] came to evaluate your fever, sore throat, [...] per your primary care. Hydrate well. [facility] for new or worsening symptoms. If you develop severe shortness of breath or weakness call 911 or go to the ER. Thank you [facility] your [facility] today. We cannot always find [...] in your condition between 8am-10pm, please call [facility] at [phone] to help navigate your care. link Not available 08/07/2020 17:51:47 10/04/2020 [id number] candidiasis: car e instructions Not available 10/04/2020 12:45:05 coronavirus (covid-19): care instructions Not available 10/04/2020 13:09:19 Reason for Referral None Reported. Results Created Date Observation Date Name Description Value Unit Range Abnormal Flag Note LastModifiedBy Organization Detail LastModifiedTime 08/07/20 20 08/07/2020 dereje relandon specimen description THROAT SWAB Not Available [facility] (Centralized Electronic Ordering - All Locations) Patient Can Go To The Location Of Their Choice, [facility] 08/10/2020 07:35:43 08/07/20 20 08/07/2020 cultjoanna relandon special requests NONE Not Available [facility] (Centralized Electronic Ordering - All Locations) Patient Can Go To The Location Of Their Choice, [facility] 08/10/2020 07:35:43 08/07/20 20 08/10/2020 dereje relandon culture 4+ NORMAL MARCK Not Available [facility] (Centralized Electronic Ordering - All Locations) Patient Can Go To The Location Of Their Choice, [facility] 08/10/2020 07:35:43 08/07/20 20 08/10/2020 dereje relandon report status FINAL 2019 Not Available [facility] (Centralized Electronic Ordering - All Locations) Patient Can Go To The Location Of Their Choice, [facility] 08/10/2020 07:35:43 08/07/20 20 08/11/2020 SARS CoV 2 RNA (COVI D-19) , QL, cycle specialist-P CR, respi rator y speci men covid-19, (RT)-PCR (notde ) Not detec shi 2019- novel Coron aviru s (2019 -nCoV ) not detec shi by the qRT-P CR assay . If clini raul suspi cion for COVID -19 is high, ethan nue to maint ain preca ution s and consi dagoberto repea t testi ng. Resul t repor shi to [facility]. This test has been autho rized by the FDA under an Emerg ency Use Autho rizat ion (EUA) for use by autho rized labor atori es. Test perfo rmed by Clini raul Resea [facility] at the [facility] and Sam scott, [address] [place] [address] . CLIA ID: [id number] , CAP: [id number]. Medic al Direc tor: Malia Dave, [...] limit ed to the Clini raul Resea [facility] or at the [facility] which is certi fied under the Clini [...] Go To The Location Of Their Choice, [id number] 08/11/2020 12:39:00 08/07/20 20 08/07/2020 rapid strep group A, throa t Strep negati ve Not Available Spr - Home [address] [place], [address], 08/07/2020 17:43:47 08/07/20 20 08/07/2020 rapid strep group A, throa t Control Visual ized / Valid Not Available Spr - Home [address] [place], [address], 08/07/2020 17:43:47 08/07/20 20 08/07/2020 rapid flu (A+B) Flu A negati ve Not Available Spr - Home [address] [place], [address], 08/07/2020 17:43:51 08/07/20 20 08/07/2020 rapid flu (A+B) Flu B negati ve Not Available Spr - Home [address] [place], [address], 08/07/2020 17:43:51 08/07/20 20 08/07/2020 rapid flu (A+B) Control Visual ized / Valid Not Available Spr - Home [address] [place], [address], 08/07/2020 17:43:51 08/11/20 20 08/13/2020 SARS CoV [...] ng. Resul t repor shi to [facility]. To preve nt error s in diagn [...] by autho rized labor atori es. Testi ng perfo rmed by real time PCR utili [facility] Lollipuff0 SARS- CoV-2 test. Not Available [facility] (Centralized Electronic Ordering - All Locations) Patient Can Go To The Location Of Their Choice, [id number] 08/13/2020 20:00:30 08/11/20 20 08/13/2020 SARS CoV 2 RNA, QL probe , unspe cifie d speci men covid-19 PCR specimen source NASAL Not Available [facility] (Centralized Electronic Ordering - All Locations) Patient Can Go To The Location Of Their Choice, [address] 08/13/2020 20:00:30 08/11/20 20 08/11/2020 rapid flu (A+B) Flu A negati ve Not Available Spr - Home [address] [place], [address], 08/11/2020 18:29:47 08/11/20 20 08/11/2020 rapid flu (A+B) Flu B negati ve Not Available Spr - Home [address] [place], [address], 08/11/2020 18:29:47 08/11/20 20 08/11/2020 rapid flu (A+B) Control Visual ized / Valid Not Available Spr - Home [address] [place], [address], 08/11/2020 18:29:47 08/15/20 20 08/15/2020 BMP + ioniz ed calci um, serum or plasm a glu 78 mg/dL 70-105 Not Available [facility] [address] [facility], [place], [address], 08/15/2020 15:52:05 08/15/20 20 08/15/2020 BMP + ioniz ed calci um, serum or plasm a BUN 17 mg/dL 8-26 Not Available [address], [address], 08/15/2020 15:52:05 08/15/20 20 08/15/2020 BMP + ioniz ed calci um, serum or plasm a crea 0.8 mg/dL 0.6-1. 3 Not Available [address], [address], 08/15/2020 15:52:05 08/15/20 20 08/15/2020 BMP + ioniz ed calci um, serum or plasm a Na 140 mmol/ L 138-14 6 Not Available [address], [address], 08/15/2020 15:52:05 08/15/20 20 08/15/2020 BMP + ioniz ed calci um, serum or plasm a K 3.8 mmol/ L 3.5-4. 9 Not Available [address], [address], 08/15/2020 15:52:05 08/15/20 20 08/15/2020 BMP + ioniz ed calci um, serum or plasm a cL 106 mmol/ L 98-109 Not Available [address], [address], 08/15/2020 15:52:05 08/15/20 20 08/15/2020 BMP + ioniz ed calci um, serum or plasm a TCO2 24 mmol/ L 24-29 Not Available [address], [address], 08/15/2020 15:52:05 08/15/20 20 08/15/2020 BMP + ioniz ed calci um, serum or plasm a angap 16 mmol/ L 10-20 Not Available [address], [place], [address], 08/15/2020 15:52:05 08/15/20 20 08/15/2020 BMP + ioniz ed calci um, serum or plasm a ica 1.16 mmol/ L 1.12-1 .32 Not Available Den [facility] [address] [place], [address], 08/15/2020 15:52:05 08/15/20 20 08/15/2020 BMP + ioniz ed calci um, serum or plasm a HCT 49 %pcv 38-51 Not Available Den [facility] [address] [place], [address], 08/15/2020 15:52:05 08/15/20 20 08/15/2020 BMP + ioniz ed calci um, serum or plasm a Hb 16.7 g/dL 12-17 Not Available Den [facility] [address] [place], [address], 08/15/2020 15:52:05 10/04/19 21 10/05/2020 SARS CoV 2 RNA (COVI D-19) , QL, cycle specialist-P CR, respi rator y speci men covid-19, (RT)-PCR (neg) NEGAT LOLI 2019- novel Coron aviru s (2019 -nCoV ) not detec shi by the qRT-P CR assay . If clini raul suspi cion for COVID -19 is high, ethan nue to maint ain preca ution s and consi dagoberto repea t testi ng. Resul t repor shi to the [facility]. This test has been autho rized by the FDA under an Emerg ency Use Autho rizat ion (EUA) for use by autho rized labor atori es. Test perfo rmed by Clini raul Resea [facility] Christophe [employer]o [employer] at the [facility] and Sam scott, [address] [facility] [address] . CLIA ID: [id number] , CAP: [id number] 96. Medic al Direc tor: Malia Dave, [...] limit ed to the Clini raul Resea [facility] [employer] orm at the [facility] which is certi fied under the Clini [...] Go To The Location Of Their Choice, [address] 10/06/2020 07:25:57 10/30/19 21 10/29/2020 CBC w/ [...] 10/29/2020 13:31:04 10/30/1910/29/2020 CBC w/ auto diff eo # 0.1 [...] Go To The Location Of Their Choice, [address] 10/29/2020 21:09:42 Result Notes None recorded. Problems Name Problem SNOMED Code Status Onset Date Resolution Date Notes Provider Name and Address Organization Details Recorded Time Attention deficit hyperactivit y disorder 038290140 Active 2019 ELSY TINAJERO [address], [place], [address], [place] [facility] 0 17:31:41 Problem Notes None recorded. Procedures Surgical History Date Name Laterality Status Provider Name and Address Organization Details Recorded Time 08/15/20 20 Venipuncture - completed ELSY TINAJERO [address], [place], [address], [place] [facility] 08/15/2020 16:26:37 08/11/20 ECG Interpretation - completed ELSY JOLLY [address], [place], [address], [place] [facility] 08/11/2020 20:06:30 Imaging Results [...] Not Available Not Available BD Regular Bevel [place] 25 gauge x 5/8 FOR USE WITH [...] Pulse oximetry Body temperature Respiratory rate Systolic And Diastolic Provider Name and Address Organization Details Last Updated DateTime 1 72 /min 98 % 98 % 98.8 [degF] 18 /min 120/70 mm[Hg] Not Available [facility] 1 12:31:42 Date Recorded Heart rate Oxygen saturation Oxygen saturation in Arterial blood by Pulse oximetry Body temperature Respiratory rate Systolic And Diastolic Provider Name and Address Organization Details Last Updated DateTime 0 86 /min 99 % 99 % 98.5 [degF] 20 /min 106/76 mm[Hg] Not Available [facility] 0 17:26:11 Date Recorded Heart rate Body temperature Oxygen saturation Oxygen saturation in Arterial blood by Pulse oximetry Respiratory rate Systolic And Diastolic Provider Name and Address Organization Details Last Updated DateTime 0 86 /min 98.2 [degF] 98 % 98 % 16 /min 130/80 mm[Hg] Not Available [facility] 0 18:16:06 Date Recorded Respiratory rate Heart rate Body temperature Oxygen saturation Oxygen saturation in Arterial blood by Pulse oximetry Systolic And Diastolic Provider Name and Address Organization Details Last Updated DateTime 0 16 /min 72 /min 99.6 [degF] 98 % 98 % 126/82 mm[Hg] Not Available [facility] 0 15:17:46 Social History Question Answer Notes LastModified by OrganizPhotolitec ion Details LastModified Time Tobacco Smoking Status Never Smoker ELSY TINAJERO [address] [place], [address], [place] [facility] 08/07/2020 17:34:38 Do You Have An Advance Directive? Yes [email or web address] Information not available 08/07/2020 Excessive Alcohol Or Drug Use Yes Medical Marijuana [email or web address] Information not available 08/07/2020 Sex: Unknown Functional Status None recorded. Mental Status None recorded. Family History Relationship Description Onset Age of this Age Resolved Age Notes LastModified by Organization Details LastModified Time Mother Diabetes mellitus [email or web address] Not available 2019 17:33:40 Medical History Condition Response Coronary Artery Disease N Depression Y COPD N Diabetes N Cancer N Stroke N Asthma Y High Cholesterol N Pulmonary Embolism N Hypertension N Kidney Disease N Past Encounters Encounter ID Performer Location Encounter Start Date Encounter Closed Date Diagnosis/Indication Diagnosis SNOMED-CT Code Diagnosis ICD10 Code Diagnosis IMO Codes Diagnosis Note [id number] ELSY TINAJERO [facility] [address] [place] [address] 08/07/2020 17:24:03 08/08/2020 20:12:17 Viral syndrome 457370245 B34.9 Exposure t o communicable disease 146333255 Z20.828 [id number] ELSY JOLLY [facility] [address] [employer] [facility] [place] [address] 08/11/2020 17:38:27 08/12/2020 15:26:23 Cough 43624587 R05 Generalize d aches and pains 84966635 R52 Exposure t o communicable disease 206514067 Z20.828 Nausea 606021825 R11.0 [id number] ELSY TINAJERO [facility] [address] [place] [address] 08/15/2020 15:01:04 08/16/2020 17:29:23 Malaise and fatigue 527428181 R53.81 Dyspnea 343972228 R06.00 Chest pain 46119818 R07. 9 Viral syndrome 570218065 B34.9 [id number] Lupe Amaya NP [facility] - [facility] [address] [place] [address] 10/04/2020 12:29:09 10/06/2020 03:53:58 [id number] Lupe Amaya NP SPR - HOME [address] [place] [address] 10/04/2020 12:29:11 10/04/2020 21:29:34 Exposure to communicable disease 438522088 Z20.822 Candidiasis of mouth 797 22213 B37.0 Suspected COVID-19 26526 4004 Z20.828 Overview/H istory: Patient is an [...] 911. Proper Personal Protective Equipment (PPE), including gloves, eye protection , N95 mask, gown, and shoe covers were donned and doffed nancy goodwin and all equipment cleaned using approved technique with germicidal disposable wipes prior to and after care of this patient according to [facility]'s infection prevention protocols. In order to obtain further informatio n and compare any laboratory results/va lues, I have accessed old patient records. This informatio n was pertinent in my medical decision making today. Health Concerns Section Related Observation LastModified by Organization Detai ls LastModified Time None Recorded Concern Status LastModified by Organization Details LastModified Time None Recorded Advance Directives Directive Y: Payers Insurance Date Sequence Insurance Name Policy Number Policy Payan Covered Member ID Payan Member ID Guarantor Name 10/04/2020 2 [place] [facility] Almas Lenny [id number] Almas Lenny 10/04/2020 1 [facility] (MEDICAID O) [id number] Almas Lenny [id number] Almas Lenny 08/07/2020 1 *SELF PAY* Almas Lenny [id number] Almas Lenny 10/04/2020 2 [place] [facility] Almas Lenny [id number] Almas Lenny Notes Date Note Type Note Provider Name and Address Organization Details Recorded Time 08/07/2020 text/html 20-year-old Transgender male with past medical history significant for asthma, depression, and WPW status post recent ablation at [facility] by Dr. Little in May, new to [facility], who presents for a COVID test. Patient had a telehealth visit With his primary care yesterday who prescribed Tylenol, Motrin, and Tessalon Perles and recommended [facility] evaluation for COVID test. Patient states at [...] stomach aches, and diarrhea. He states the halu-icc-wgowbsy medications are helping somewhat. No chest pain, sob, palpitations, syncope, weakness. ELSY TINAJERO [address], [place], [address], [place] [facility] 08/07/2020 18:21:51 08/11/2020 text/html 20yoM known to new to this provider pmhx 20-year-old Transgender [...] smell. continued sore throat. ELSY JOLLY [address], [place], [address], [place] [facility] 08/11/2020 20:10:46 08/15/2020 text/html 20-year-old male with past medical history significant for asthma, depression, and WPWStatus post recent cardiac ablation at [facility], known to [employer] [facility], who presents with complaints of [...] to the COVID pandemic. ELSY TINAJERO [address], [place], [address], [place] [facility] 08/15/2020 16:33:46 10/04/2020 text/html duplicate chart. Lupe Amaya NP [address], [place], [address], [place] [facility] 10/04/2020 13:31:31 10/04/2020 text/html COVID-19 Symptom s December 2019Reported by Patient Patient is a 20 year old alert male who is known to and new to this provider. Patient requests testing for covid. He has been symptomatic since this past Sunday. Patient has had direct exposure throught a co-worker. Symtoms include stuffy nose, sore throat, and intermittent fever. Medical history significant for asthma, depression, WPW, palpitations Lupe Amaya NP [address], [place], [address], [place] [facility] 10/04/2020 13:28:08
--- OUTSIDE RECORDS SUMMARY | 2025-06-21 06:16 | XMS_ITS | Encounter Summary ---
Author Organization [facility] Address [address] [facility] [address] [place] [address] Phone Care Team Providers Care Payroll Secretary Name Role Phone Theresa Castellon MD Primary Care Provider [phone] Pcp, Unknown Primary Care Provider UnavailEda Lawton NP Primary Care Pro vider Pcp, Unknown Primary Care Provider UnavailEda Lawton NP Unavailable Anneliese MendezW Unavailable segundo Lauren Garcia DO Unavailable [phone] Ramona Scott MD Unavailable [phone] Lauren Garcia DO Unavailable [phone] Encounter Details Date Type Department Care Team (Late st Contact Info) Description 11/29/2021 Procedure [facility], [address] [address] Social History Tobacco Use Types Packs/Day Years [...] Description 10/30/2025 12:20 PM EST Office Visit [facility] [address] [place] [address] [address]rd Floor, [address] [place] [address] Varinder Rivas MD [address] [place] [address], [address] [place] [address] [email or web address] 12/07/2025 9:30 AM EDT Office Visit [facility] Department of Neurology [address] [place] [address], 8th Floor, [address] [place] [address] Eda Acosta MD [address] [place] [address] [place] [phone] [email or web address] documented as of this encounter Visit Diagnoses Not on filedocumented in this encounter Additional Health Concerns Infection Onset Date Last Indicated Resolved Time CoV-Risk Comment:Per note documentation 11/21/2022 11/21/2022 3 11:05 PM EDT CoV-Risk Comment:Per note documentation 12/12/2022 12/12/2022 3 1:07 AM EDT Assessment Noted Time PHQ-2 Depression Total Score: 2 10/21/19 22 2:30 PM EST documented as of this encounter Care Teams Payroll Secretary Relationship Specialty Start Date End Date Theresa Castellon MD [email or web address] PCP - General Family Medicine 10/20/21 07/26/22 Pcp, Unknown PCP - General 07/27/22 09/17/22 Eda Bowens NP [address] [place] [id number] [email or web address] PCP - General Nurse Practitioner 09/18/22 12/18/24 Pcp, Unknown PCP - General 12/19/24 Eda Bowens NP [address] [place] [phone] [email or web address] Nurse Practitioner 12/19/24 Anneliese Mendez, [address] [address] [email or web address] PHCM Food Counter Attendant 10/20/21 03/14/22 Lauren Garcia DO [address] [place] [address] [place] [address] Insurance Assigned Provider 02/04/22 05/06/22 Ramona Scott MD [address] [place] [address] [place] [address] [email or web address] Insurance Assigned Provider 05/06/22 07/02/22 Lauren Garcia DO [address] [place] [address] [place] [address] Insurance Assigned Provider 07/02/22 09/30/22 documented as of this encounter Additional Source Comments The information contained in this document represents components of the legal health record. It is not the complete legal health record.[facility]
--- OUTSIDE RECORDS SUMMARY | 2025-06-21 06:16 | XMS_ITS | Encounter Summary ---
Author Organization [facility] Address [address] [place] [address] Care Team Providers Care Tuck Pointer Helper Name Role Phone Eda Bowesn Primary Care Provider [phone] Encounter Details Date Type Department Care Team (Late st Contact Info) Description 09/05/2022 Telephone [facility] [address] [place] [address] Octavio Esparza MD [address] [place] [address] Social History Tobacco Use Types Packs/Day Years [...] of this encounter Results * Due to [place] state law, this organization might not be sharing negative HIV tests. * COVID-19 PCR, Pre-Procedure (Asymptomatic), ANALYSIS SPECIALIST/OP/Saliva (09/15/2022 11:31 AM EST) SARS CoV 2 RNA, RT PCR Not Detected Not Detected THERMOFIS HER QUANT STUDIO 09/15/2022 9:20 PM EST [email or web address] Comment:A Not Detected (Nega [...] AM EST 09/15/2022 12:04 PM EST Narrative [email or web address] - 09/15/2022 9:20 PM EST These tests were developed, validated, and their performance characteristics determined by the Molecular Virology Laboratory at [facility] under CLIA [id number]. They have not been cleared or approved by the U.S. Food and Drug Administration (FDA). FDA Policy for Diagnostic Tests for Coronavirus Disease-2019 during the Public Health Emergency issued November 10, 2019, is followed. us Octavio Esparza MD LAB BODY FLUIDS AND STOOLS [facility]IL[facility] TRAMMELL Final Result [facility] CLINICAL PATHOLOGY LABORATORY [address] [place] [address], documented in this encounter Visit Diagnoses Diagnosis Convulsions, unspecified convulsion type- Primary documented in this encounter Care Teams Tuck Pointer Helper Relationship Specialty Start Date End Date Eda Bowens [address] [place] [phone] PCP - General 03/31/25 documented as of this encounter
--- OUTSIDE RECORDS SUMMARY | 2025-06-21 06:16 | XMS_ITS | Encounter Summary ---
Author Organization [facility] Address [address] [place] [address] Care Team Providers Care Bundler Name Role Phone Eda Bowens Primary Care Provider [phone] Encounter Details Date Type Department Care Team (Late st Contact Info) Description 09/26/2022 myChart Message [facility] [address] [place] [phone] Angelita Seth MD [address] [place] [address] [phone] question related to products used on my [...] on filedocumented in this encounter Care Teams Bundler Relationship Specialty Start Date End Date Eda Bowens [address] [place] [phone] PCP - General 03/31/25 documented as of this encounter
--- OUTSIDE RECORDS SUMMARY | 2025-06-21 06:16 | XMS_ITS | Encounter Summary ---
Author Organization [facility] Address [address] [place] [address] Care Team Providers Care Strategic Business Development Name Role Phone Eda Bowens Primary Care Provider [phone] Encounter Details Date Type Department Care Team (Late st Contact Info) Description 09/04/2022 Documentation [facility] [address] [place] [address] Angelita Seth MD [address] [place] [phone] Social History Tobacco Use Types Packs/Day Years [...] on filedocumented in this encounter Care Teams Strategic Business Development Relationship Specialty Start Date End Date Eda Bowens [address] [place] [phone] PCP - General 03/31/25 documented as of this encounter
--- OUTSIDE RECORDS SUMMARY | 2025-06-21 06:16 | XMS_ITS | Clinical Summary ---
Author Organization [facility] Address [address] [place] [address] Care Team Providers Care System Support Developer Name Role Phone Eda Bowens Primary Care Provider [phone] Allergies Active Allergy Reactions Criticality Noted Date Comments Aripiprazole Psychosis 02/28/2025 Chlorpromazine Unknown 02/28/2025 House Dust Unknown 09/18/2022 Penicillins Anaphylaxis High 02/28/2025 Prednisone Rash 02/28/2025 Olanzapine Psychosis 02/28/2025 Medications * This document contains information received from the source organization and may not represent a complete record from that organization. hydrOXYzine (VISTARIL) 25 mg capsule Take 25 mg by mouth 4 times a day as needed for anxiety. 2 Active acetaminophen (TYLENOL) 325 mg tablet Take 650 mg by mouth every 6 hours as needed for pain. Active albuterol (ACCUNEB) 1.25 mg/3 mL (0.042%) nebulizer solution Inhale 1 vial via nebulizer every 6 hours as needed for wheezing or shortness of breath. Active baclofen (LIORESAL) 5 mg tablet Take 10 mg by mouth 3 times a day. Active clonazePAM (KlonoPIN) 1 mg tablet Take 1 mg by mouth nightly. Active dextroamphetamine- amphetamine (ADDERALL) 10 mg tablet Take 10 mg by mouth 2 times a day. Active estradioL (ESTRACE) 0.01 % (0.1 mg/gram) vaginal cream Insert 2 g into the vagina 2 times a day, 2 times a week. Active famotidine (PEPCID) 20 mg tablet Take 20 mg by mouth once a day. Active clonazePAM (KlonoPIN) 1 mg tablet Take 1 mg by mouth daily as needed for anxiety. Active testosterone cypionate (DEPO-TESTOSTERONE ) 200 mg/mL injection Inject 80 mg into the shoulder, thigh, or buttocks muscle as directed every 7 days. Active morphine ER (MS CONTIN) 15 mg tablet Take 15 mg by mouth once a day. Active morphine ER (MS CONTIN) 15 mg tablet Take 45 mg by mouth every night. Active lidocaine (XYLOCAINE) 2% (20 mg/mL) jelly in applicator urojet jelly Apply 5 mL topically to the affected area every 4 hours as needed (Urethral discomfort). Active ondansetron (ZOFRAN ODT) 4 mg disintegrating tablet Dissolve 4 mg in the mouth every 8 hours as needed for nausea or vomiting. Active oxyCODONE IR (ROXICODONE) 5 mg tablet Take 10 mg by mouth every 6 hours as needed for pain. Active loratadine (CLARITIN) 10 mg tablet Take 10 mg by mouth once a day. Active senna (SENOKOT) 8.6 mg tablet Take 2 tablets by mouth once a day. Active aspirin 81 mg EC tablet Take by mouth once a day. Active magnesium hydroxide (MILK OF MAGNESIA) 400 mg/5 mL suspension Take 30 mL by mouth nightly as needed for constipation. Active docusate sodium (COLACE) 100 mg capsule Take 100 mg by mouth 2 times a day as needed for constipation. Active bisacodyL (DULCOLAX) 10 mg suppository Insert 10 mg into the rectum daily as needed for constipation. Active sodium phosphates (Fleet Enema) 19-7 gram/118 mL enema Insert 133 mL into the rectum once as needed (Constipation ). Active metoprolol tartrate (LOPRESSOR) 25 mg tablet Take 2 tablets (50 mg total) by mouth 2 times a day. 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 Seen by cardiology-Dr. Linares Increased metoprolol to 50 mg twice daily due to intermittent tachycardia Recommend outpatient follow-up with cardiology LUE weakness 03/02/2025 Assessment & Plan (03/03/2025 11:32 AM EDT): MRI negative for any evidence of CVA Recommend outpatient follow-up with neurology. 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 Stroke team was activated in the ER. Dr. Martines from teleneurology recommends admission for MRI. Full dose aspirin given in the ER. Head CT negative for acute intracranial abnormality. Head/neck CTA negative for significant stenosis, occlusion, dissection or aneurysm. Brain MRI -did not reveal any evidence of acute intracranial pathology Patient continues to report left upper extremity weakness, likely secondary to functional neurological disorder Recommend outpatient follow-up with neurology Assessment & Plan (03/02/2025 5:15 PM EDT): Patient with a history of FND presenting with left upper extremity weakness. Stroke team was activated in the ER. Dr. Martines from teleneurology recommends admission for MRI. Full dose aspirin given in the ER. Head CT negative for acute intracranial abnormality. Head/neck CTA negative for significant stenosis, occlusion, dissection or aneurysm. Brain MRI -did not reveal any evidence of acute intracranial pathology Patient continues to report left upper extremity weakness, likely secondary to functional neurological disorder Baby aspirin daily until MRI is resulted Ceftriaxone initiated for UTI Assessment & Plan (03/01/2025 11:28 AM EDT): Patient with a history of FND presenting with left upper extremity weakness. Stroke team was activated in the ER. Dr. Martines from teleneurology recommends admission for MRI. Full dose aspirin given in the ER. Head CT negative for acute intracranial abnormality. Head/neck CTA negative for significant stenosis, occlusion, dissection or aneurysm. Brain MRI without contrast Baby aspirin daily until MRI is resulted Ceftriaxone initiated for UTI Chronic pain 03/01/2025 Assessment & Plan (03/03/2025 11:31 AM EDT): Continue home MS Contin twice daily Continue oxycodone as needed Tylenol as needed Follow-up with the pain clinic recommended Assessment & Plan (03/02/2025 5:15 PM EDT): Continue home MS Contin twice daily Continue oxycodone as needed Tylenol as needed Follow-up with the pain clinic recommended Assessment & Plan (03/01/2025 11:23 AM EDT): Continue home MS Contin twice daily Continue oxycodone as needed Tylenol as needed Follow-up with the pain clinic recommended UTI (urinary tract infection) 03/01/2025 Assessment & Plan (03/03/2025 11:31 AM EDT): Abnormal urinalysis. Patient remained stable clinically Afebrile with no leukocytosis Will DC antibiotics Assessment & Plan (03/02/2025 5:16 PM EDT): Recent outpatient antibiotic course 02/20 of Vantin. UA cloudy with moderate amount of bacteria, small amount of leukoesterase and 20-30 WBCs. CBC WBC WNL at 8.9 Ceftriaxone 1 g daily Urine culture pending Assessment & Plan (03/01/2025 11:29 AM EDT): Recent outpatient antibiotic course 02/20 of Vantin. UA cloudy with moderate amount of bacteria, small amount of leukoesterase and 20-30 WBCs. 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 12/14/2023 Assessment & Plan (03/03/2025 11:31 AM EDT): continue home baclofen Continue home pain regiment Assessment & Plan (03/02/2025 5:15 PM EDT): continue home baclofen Continue home pain regiment Assessment & Plan (03/01/2025 11:24 AM EDT): Continue home baclofen Continue home pain regiment Severe episode of recurrent major depressive disorder, without psychotic features 12/14/2023 Autism 09/25/2022 PTSD (post-traumatic stress disorder) 09/24/2022 Assessment & Plan (09/24/2022 8:08 AM EST): -continue home Prozosin 2mg at bedtime Generalized anxiety disorder 09/24/2022 Assessment & Plan (03/03/2025 11:31 AM EDT): Continue home Klonopin scheduled and as needed Continue Atarax as needed Assessment & Plan (03/02/2025 5:15 PM EDT): Continue home Klonopin scheduled and as needed Continue Atarax as needed Assessment & Plan (03/01/2025 11:23 AM EDT): Continue home Klonopin scheduled and as needed Continue Atarax as needed Assessment & Plan (09/24/2022 8:09 AM EST): -continue home Duloxetine 40mg at bedtime, Atarax 50mg at bedtime -Clonazepam 0.5mg daily PRN ADHD (attention deficit hyperactivity disorder) 09/24/2022 Assessment & Plan (03/03/2025 11:31 AM EDT): Continue home Adderall Assessment & Plan (03/02/2025 5:15 PM EDT): Continue home Adderall Assessment & Plan (03/01/2025 11:28 AM EDT): Continue home Adderall Assessment & Plan (09/24/2022 8:09 AM EST): [...] unless event lasts >5 minutes Convulsions 06/27/2022 Encounters Date Type Department Care Team Description 03/27/2025 Orders Only [facility] [address] [place] [id number] Mail Processing Machine Operator: Adolfo Mills, Theresa Polanco, REINALDO Tracheostomy dependence (HCC) (Primary Dx) from Last 3 Months Family History Medical History Relation Name Comments [...] 1 4.8 Started: 2020 Smokeless Tobacco: Never Tobacco Cessation:Ready [...] Sign Reading Time Taken Comments Blood Pressure 98/70 03/03/2025 11:45 AM EDT Pulse 88 03/03/2025 8:50 AM EDT Temperature 36.7 C (98.1 F) 03/03/2025 11:45 AM EDT Respiratory Rate 18 03/03/2025 3:00 AM EDT Oxygen Saturation 95% 03/03/2025 11:45 AM EDT Inhaled Oxygen Concentration - - Weight 77.1 kg (170 lb) 02/28/2025 10:21 PM EDT Height 154.9 cm (5' 1 ) 02/28/2025 10:21 PM EDT Body Mass Index 32.12 02/28/2025 10:21 PM EDT Plan of Treatment Health Maintenance Due Date Last Done Comments HIV Screening 1999 Hepatitis C Screening 1999 Pap Smear 1999 Medicare AWV 02/23/2000 Varicella Vaccines (1 of 2 - 13+ 2-dose series) 02/23/2012 HPV Vaccines (1 - 3-dose series) 2014 Hepatitis B Vaccines (1 of 3 - 19+ 3-dose series) 2018 Pneumococcal Vaccine: Pediat stefany (0-5 Years) and At-Risk Patients (6-50 Years) (1 of 2 - PCV) 2018 DTaP,Tdap,and Td Vaccines (1 - Tdap) 2021 Alcohol/Substance Use Screening 08/27/2024 Depression Screening and Follow-Up 08/27/2024 Social Drivers of Health Zoe ual Screening 08/27/2024 COVID-19 Vaccine ( - season) 2025 06/05/2024, 01/09/2021, 12/19/2020 Influenza Vaccine (#1) 2025 06/29/2017, 2016 RSV Vaccine (60+ years old a nd patients) (1 - 1-dose 75+ series) 2074 Abdominal Aortic Aneurysm (A AA) Screening Completed 08/26/2021, 01/11/2019 Insurance [facility] MEDIC[facility] Advance Directives Documents on File Type Date Recorded Patient Career Development Coordinator/Teacher Expl anation Health Care Proxy 03/02/2025 9:12 AM Ari Dos Santos 01-02-2025 MOLST/POLST 03/02/2025 8:55 AM 01-05-2025 Health Care Proxy 09/19/2022 11:07 AM - * Full Code (Latest Code Status on File) Date Activated Date Inactivated Comments 03/01/2025 12:59 PM 03/03/2025 3:52 PM * DNR/DNI Date Activated Date Inactivated Comments 03/01/2025 10:37 AM 03/01/2025 12:59 PM * Full Code Date Activated Date Inactivated Comments 09/20/2022 10:04 PM 09/25/2022 4:56 PM * DNR/DNI Date Activated Date Inactivated Comments 09/18/2022 8:31 PM 09/20/2022 10:04 PM Healthcare Agents on File Name Relationship Healthcare Agent Relationship Communication Shelley Soriano Friend Alternate Health Care Junior Gallo Information Systems Manager Health Care Agent Dave Dos Santos Other Alternate Health Care Agent Care Teams System Support Developer Relationship Specialty Start Date End Date Eda Bowens [address] [place] [phone] PCP - General 03/31/25
--- NOTE | 2025-06-21 06:41 | PC.NURSE ---
attempting to foreign exchange student coordinator pt. multiple people at bedside to calm pt. very upset and agitated about comfort items and phone being taken. states i am unsafe to go home but denies SI and does not understand why this is happening. process explained many many times. awaiting care team. medically cleared by MD despite taking too many medication and pt being worried.
--- NOTE | 2025-06-21 08:15 | PC.NURSE ---
Pt needing continued reassurance. Repeating concerns that have been addressed multiple times. Reassured that he is safe and will speak to care team. Pending consult. Denies SI but states feels unsafe because I am impulsive . Pt agitated bc their belongings have been locked up per hospital policy. Demanding baby bottle, pacifier, stuffies , crayons and headphones for comfort. Provided pt with items appropriate at this time.
[2025-06-21 10:00] VITALS: PULSE 59; RESP 20; O2SAT 97
[2025-06-21 12:00] VITALS: PULSE 68; RESP 20; O2SAT 98
--- NOTE | 2025-06-21 15:16 | MHC.EDTECH ---
this pct gave patient bags of belongings , patient started yelling wheres my phone and wallet and started throwing items on the floor and threatening to take him trac out.
== END 2025-06-21 16:47 | disposition home or self-care (01) ==
PROVIDERS: Emergency Provider Emergency Medicine Emergency Medical Services
DX: T40.2X1A Poisoning by other opioids, accidental (unintentional), initial encounter (principal); T44.7X1A Poisoning by beta-adrenoreceptor antagonists, accidental (unintentional), initial encounter; T42.8X1A Poisoning by antiparkinsonism drugs and other central muscle-tone depressants, accidental (unintentional), initial encounter; Y92.89 Other specified places as the place of occurrence of the external cause; F84.0 Autistic disorder; F43.10 Post-traumatic stress disorder, unspecified; Z93.0 Tracheostomy status; Z79.899 Other long term (current) drug therapy
CPT/HCPCS: 93005; 99283; 99284

== ENCOUNTER → 2025-06-21 06:06 | Outpatient (BNV) | payer MEDICARE, MEDICAID, SELFPAY | PROVIDERS: Emergency Provider Emergency Medicine Emergency Medical Services; Visit Provider Internal Medicine Cardiovascular Disease | DX: T50.901A Poisoning by unspecified drugs, medicaments and biological substances, accidental (unintentional), initial encounter (principal) | CPT/HCPCS: 93010 ==